=== PATIENT | female | born 1965 | race Caucasian/White ===

== ENCOUNTER 2016-11-06 16:31 | Emergency (ER) | payer OTHER ==
[2016-11-06] MEDS ORDERED: metroNIDAZOLE 500 MG TAB PO STA (18:42)
[2016-11-06] MEDS ORDERED: HYDROmorphone 1 MG/ML 1 ML SYRINGE IM STA (18:42)
[2016-11-06] MEDS ORDERED: CIPROFLOXACIN HCL 500 MG TAB PO STA (18:42)
--- NOTE | 2016-11-06 18:50 | ED ---
General Adult HPI - General Chief complaint: Abdominal Pain Stated complaint: Right Flank Pain Source: patient, RN notes reviewed, old records reviewed Mode of arrival: ambulatory - History of Present Illness Initial comments: Chief complaint history of present illness is a 51-year-old female seen recently and frequently in the emergency room for diverticulitis. The patient was in emergency room 4 days ago. Had similar complaints had a CAT scan was reported to be negative. Evidence of diverticulosis. The appendix was normal. At that time the patient had some white cells in the urine. Culture was pending. Patient denies nausea vomiting. Patient reports ALLERGIES to ibuprofen and strawberries. - Related Data Home Medications Medication Instructions Recorded Confirmed clonazePAM [KlonoPIN] 1 mg PO DAILY PRN 11/18/14 11/01/16 Citalopram Hydrobromide [CeleXA] 20 mg PO DAILY 11/01/16 11/01/16 traMADol HCL [Ultram] 50 mg PO DAILY PRN 11/01/16 11/01/16 Previous Rx's Medication Instructions Recorded traMADol HCl [Ultram] 50 mg PO Q4H PRN #15 tab 11/01/16 Ciprofloxacin HCl [Cipro] 500 mg PO Q12HR #14 tablet 11/06/16 metroNIDAZOLE [Flagyl] 500 mg PO QID #28 tab 11/06/16 Allergies Allergy/AdvReac Type Severity Reaction Status Date / Time strawberry Allergy Rash/Hives Verified 11/06/16 17:42 ibuprofen [From Motrin] AdvReac Vomiting Verified 11/06/16 17:42 Review of Systems ROS Statement: Those systems with pertinent positive or pertinent negative responses have been documented in the HPI. Review of systems no headache or visual acuity changes no stiff neck no chest pain or shortness of breath she does discomfort in the right side of the abdomen. No rashes noted. No apparent nausea vomiting. No change in bowel habits. No blood in the stool sometimes looks dark to her. No complaint of any neuro deficits. All systems were otherwise reviewed again. Past medical problems significant for previous GI bleed, diarrhea diverticulitis herniated disc. The patient's surgeries gallbladder hysterectomy. She also had a fractured ankle. The patient's other medical problems include anxiety bipolar depression. Smokes every day again told to stop smoking. History of family history of DVT and father had bladder cancer. Labs done 4 days ago all within normal limits and as noted the patient's CAT scan was done with IV contrast was reported by radiologist to be normal appendix and there is some diverticulosis. Patient reports that she often has diverticulitis. ROS Other: All systems not noted in ROS Statement are negative. Past Medical History Past Medical History: GI Bleed Additional Past Medical History / Comment(s): DIVERTICULITIS.HERNIA, herniated discs,sciatica, History of Any Multi-Drug Resistant Organisms: None Reported Past Surgical History: Cholecystectomy, Hysterectomy Additional Past Surgical History / Comment(s): right ankle fracture Past Anesthesia/Blood Transfusion Reactions: No Reported Reaction Past Psychological History: Anxiety, Bipolar, Depression, Panic Disorder Additional Psychological History / Comment(s): dyslexia Smoking Status: Current every day smoker Past Alcohol Use History: None Reported Additional Past Alcohol Use History / Comment(s): STARTED SMOKING AT AGE 27 1 PACK WILL LAST 1 WEEK- SMOKING CESSATION BOOKLET GIVEN TO PT. Past Drug Use History: None Reported - Past Family History Mother Family Medical History: Deep Vein Thrombosis (DVT) Father Family Medical History: Cancer, Hypertension Additional Family Medical History / Comment(s): dad has bladder ca General Exam - General Exam Comments Initial Comments: General: The patient is awake and alert, playing of on-again off-again recurrent right lower quadrant area pain. Vital signs temp 98.1 pulse 100 respiratory rate 20 pulse ox 96% room air blood pressure 102/63 Eye: Pupils are equal, round and reactive to light, extra-ocular movements are intact ; there is normal conjunctiva bilaterally. No signs of icterus. Ears, nose, mouth and throat: There are moist mucous membranes and no oral lesions. Neck: The neck is supple, there is no tenderness , no anterior cervical lymphadenopathy Cardiovascular: There is a regular rate and rhythm. No murmur, rub or gallop is appreciated. Respiratory: Lungs are clear to auscultation, respirations are non-labored, breath sounds are equal. No wheezes, stridor, rales, or rhonchi. Gastrointestinal: No rebound or referred pain, mild voluntary guarding right lower abdomen area. History of cholecystectomy. Minimal to no flank pain no rashes noted. Active bowel sounds. Back: Subjective discomfort to the right pelvic rim laterally. Musculoskeletal: Normal ROM, no tenderness, There is no pedal edema. There is no calf tenderness or swelling. Sensation intact. Neurological: No complaint of or any evidence of neuro deficits. Skin: Skin is warm and dry and no rashes or lesions are noted. Course Vital Signs 11/06/16 17:38 Temperature 98.1 F Pulse Rate 100 Respiratory 20 Rate Blood Pressure 102/63 O2 Sat by Pulse 96 Oximetry Medical Decision Making - Medical Decision Making Medical decision-making. The patient states she has had in the past. Diverticulitis does not clearly evident on exam or CAT scan which she has better with treatment. At this time the patient be treated for one week with Cipro and Flagyl. Advised to follow-up with family physician. Disposition Clinical Impression: H/O diverticulitis of colon Disposition: HOME SELF-CARE Condition: Fair Instructions: Diverticulitis Diet (ED), Diverticulitis (ED) Additional Instructions: Increase fluids. Bulky diet. No seeds etc. follow diverticulitis diet. Cipro Flagyl as directed. Use Tylenol for pain Prescriptions: Ciprofloxacin HCl [Cipro] 500 mg PO Q12HR #14 tablet metroNIDAZOLE [Flagyl] 500 mg PO QID #28 tab Time of Disposition: 18:54
[2016-11-06 18:56] VITALS: BP 118/79; PULSE 97; RESP 18; TEMP 97.9
== END 2016-11-06 19:10 | disposition home or self-care (01) ==
LOC: EC 16:31
DX: K57.32 Diverticulitis of large intestine without perforation or abscess without bleeding (principal); Z79.899 Other long term (current) drug therapy; Z91.018 Allergy to other foods; Z88.8 Allergy status to other drugs, medicaments and biological substances; F31.9 Bipolar disorder, unspecified; F41.9 Anxiety disorder, unspecified; F17.200 Nicotine dependence, unspecified, uncomplicated
CPT/HCPCS: 96372; 99284; J1170

== ENCOUNTER 2016-11-07 13:51 | Emergency (ER) | payer OTHER ==
[2016-11-07] MEDS ORDERED: ONDANSETRON 4 MG/2 ML VIAL IVP STA (14:35)
[2016-11-07] MEDS ORDERED: DICYCLOMINE 10 MG/ML 2 ML AMP IM STA (14:35)
[2016-11-07] MEDS ORDERED: RX INFO: IV CONTRAST WAS GIVEN 1 EACH MISC MISCELLANE PRN (14:35)
[2016-11-07] MEDS ORDERED: SODIUM CHLORIDE 0.9% 1,000 ML IV STA (14:35)
[2016-11-07] MEDS ORDERED: FAMOTIDINE 20 MG/2 ML VIAL IV STA (14:36)
--- NOTE | 2016-11-07 14:38 | ED ---
General Adult HPI - General Chief complaint: Abdominal Pain Stated complaint: Rt Flank Pain Time Seen by Provider: 11/07/16 14:24 Source: patient, RN notes reviewed Mode of arrival: ambulatory Limitations: no limitations - History of Present Illness Initial comments: Patient is a pleasant 51-year-old female presenting to the emergency department complaining of abdominal discomfort. Patient states symptoms started 6 days ago. Upon further questioning patient admits to having some chronic abdominal discomfort for the past 6 months. Chart review reveals patient has been coming to the emergency center for the past 2 and half years for abdominal discomfort, multiple visits. Patient states known is able to figure out what is going on. Patient states she did recently see her primary care physician for this and has plans to see a specialist however has not yet seen a specialist. Patient does have some loose stools and nausea. No fevers. Discomfort is right lower abdomen. - Related Data Home Medications Medication Instructions Recorded Confirmed clonazePAM [KlonoPIN] 1 mg PO DAILY PRN 11/18/14 11/07/16 Citalopram Hydrobromide [CeleXA] 20 mg PO DAILY 11/01/16 11/07/16 Previous Rx's Medication Instructions Recorded traMADol HCl [Ultram] 50 mg PO Q4H PRN #15 tab 11/01/16 Ciprofloxacin HCl [Cipro] 500 mg PO Q12HR #14 tablet 11/06/16 metroNIDAZOLE [Flagyl] 500 mg PO QID #28 tab 11/06/16 Dicyclomine HCl [Bentyl] 20 mg PO QID PRN #15 tab 11/07/16 Allergies Allergy/AdvReac Type Severity Reaction Status Date / Time strawberry Allergy Rash/Hives Verified 11/07/16 15:15 ibuprofen [From Motrin] AdvReac Vomiting Verified 11/07/16 15:15 Review of Systems ROS Statement: Those systems with pertinent positive or pertinent negative responses have been documented in the HPI. ROS Other: All systems not noted in ROS Statement are negative. Constitutional: Denies: fever Eyes: Denies: eye pain ENT: Denies: ear pain Respiratory: Denies: dyspnea Cardiovascular: Denies: chest pain Endocrine: Denies: fatigue Gastrointestinal: Reports: abdominal pain, nausea, diarrhea Genitourinary: Denies: dysuria Musculoskeletal: Denies: back pain Skin: Denies: rash Neurological: Denies: weakness Past Medical History Past Medical History: GI Bleed Additional Past Medical History / Comment(s): DIVERTICULITIS.HERNIA, herniated discs,sciatica, History of Any Multi-Drug Resistant Organisms: None Reported Past Surgical History: Cholecystectomy, Hysterectomy Additional Past Surgical History / Comment(s): right ankle fracture Past Anesthesia/Blood Transfusion Reactions: No Reported Reaction Past Psychological History: Anxiety, Bipolar, Depression, Panic Disorder Additional Psychological History / Comment(s): dyslexia Smoking Status: Current every day smoker Past Alcohol Use History: None Reported Additional Past Alcohol Use History / Comment(s): STARTED SMOKING AT AGE 27 1 PACK WILL LAST 1 WEEK- SMOKING CESSATION BOOKLET GIVEN TO PT. Past Drug Use History: None Reported - Past Family History Mother Family Medical History: Deep Vein Thrombosis (DVT) Father Family Medical History: Cancer, Hypertension Additional Family Medical History / Comment(s): dad has bladder ca General Exam Limitations: no limitations General appearance: alert, in no apparent distress Head exam: Present: atraumatic Eye exam: Present: normal appearance ENT exam: Present: normal oropharynx Neck exam: Present: normal inspection Respiratory exam: Present: normal lung sounds bilaterally Cardiovascular Exam: Present: regular rate, normal rhythm Expanded Peripheral pulses: 2+: Dorsalis Pedis (R), Dorsalis Pedis (L) GI/Abdominal exam: Present: soft, tenderness (Moderate tenderness right mid abdomen), normal bowel sounds. Absent: distended, guarding, rebound, rigid, pulsatile mass Extremities exam: Present: normal inspection Neurological exam: Present: alert Psychiatric exam: Present: normal affect, normal mood Skin exam: Absent: rash Course Vital Signs 11/07/16 14:03 Temperature 98.3 F Pulse Rate 100 Respiratory 18 Rate Blood Pressure 132/59 O2 Sat by Pulse 100 Oximetry Medical Decision Making - Medical Decision Making Patient reexamined and resting comfortably in bed. Patient does request pain medication. Patient updated on results and need for follow-up. Patient also updated on need for follow-up with cutter machine in to have a scope done. Patient is also updated on my concerns regarding frequent visits for chronic abdominal pain and that narcotic pain medication is probably not the correct answer for her. - Lab Data Result diagrams: 11/07/16 14:50 11/07/16 14:50 Lab Results 11/07/16 11/07/16 11/07/16 Range/Units 14:50 14:50 14:50 WBC 6.2 (3.8-10.6) k/uL RBC 3.97 (3.80-5.40) m/uL Hgb 13.0 (11.4-16.0) gm/dL Hct 38.8 (34.0-46.0) % MCV 97.8 (80.0-100.0) fL MCH 32.9 (25.0-35.0) pg MCHC 33.6 (31.0-37.0) g/dL RDW 12.6 (11.5-15.5) % Plt Count 339 (150-450) k/uL Neutrophils % 63 % Lymphocytes % 26 % Monocytes % 8 % Eosinophils % 1 % Basophils % 1 % Neutrophils # 3.9 (1.3-7.7) k/uL Lymphocytes # 1.6 (1.0-4.8) k/uL Monocytes # 0.5 (0-1.0) k/uL Eosinophils # 0.0 (0-0.7) k/uL Basophils # 0.1 (0-0.2) k/uL PT 10.4 (9.0-12.0) sec INR 1.0 (<1.1) APTT 22.8 (22.0-30.0) sec Sodium 144 (137-145) mmol/L Potassium 4.4 (3.5-5.1) mmol/L Chloride 106 (98-107) mmol/L Carbon Dioxide 26 (22-30) mmol/L Anion Gap 12 mmol/L BUN 21 H (7-17) mg/dL Creatinine 0.91 (0.52-1.04) mg/dL Est GFR (MDRD) Af Amer >60 (>60 ml/min/1.73 sqM) Est GFR (MDRD) Non-Af >60 (>60 ml/min/1.73 sqM) Glucose 94 (74-99) mg/dL Calcium 9.4 (8.4-10.2) mg/dL Total Bilirubin 0.3 (0.2-1.3) mg/dL AST 22 (14-36) U/L ALT 33 (9-52) U/L Alkaline Phosphatase 66 (38-126) U/L Total Protein 7.2 (6.3-8.2) g/dL Albumin 4.2 (3.5-5.0) g/dL Amylase 67 (30-110) U/L Lipase 70 (23-300) U/L Urine Color Urine Appearance (Clear) Urine pH (5.0-8.0) Ur Specific [place] (1.001-1.035) Urine Protein (Negative) Urine Glucose (UA) (Negative) Urine Ketones (Negative) Urine Blood (Negative) Urine Nitrate (Negative) Urine Bilirubin (Negative) Urine Urobilinogen (<2.0) mg/dL Ur Leukocyte Esterase (Negative) Urine WBC (0-5) /hpf Ur Squamous Epith Cells (0-4) /hpf Amorphous Sediment (None) /hpf 11/07/16 Range/Units 14:50 WBC (3.8-10.6) k/uL RBC (3.80-5.40) m/uL Hgb (11.4-16.0) gm/dL Hct (34.0-46.0) % MCV (80.0-100.0) fL MCH (25.0-35.0) pg MCHC (31.0-37.0) g/dL RDW (11.5-15.5) % Plt Count (150-450) k/uL Neutrophils % % Lymphocytes % % Monocytes % % Eosinophils % % Basophils % % Neutrophils # (1.3-7.7) k/uL Lymphocytes # (1.0-4.8) k/uL Monocytes # (0-1.0) k/uL Eosinophils # (0-0.7) k/uL Basophils # (0-0.2) k/uL PT (9.0-12.0) sec INR (<1.1) APTT (22.0-30.0) sec Sodium (137-145) mmol/L Potassium (3.5-5.1) mmol/L Chloride (98-107) mmol/L Carbon Dioxide (22-30) mmol/L Anion Gap mmol/L BUN (7-17) mg/dL Creatinine (0.52-1.04) mg/dL Est GFR (MDRD) Af Amer (>60 ml/min/1.73 sqM) Est GFR (MDRD) Non-Af (>60 ml/min/1.73 sqM) Glucose (74-99) mg/dL Calcium (8.4-10.2) mg/dL Total Bilirubin (0.2-1.3) mg/dL AST (14-36) U/L ALT (9-52) U/L Alkaline Phosphatase (38-126) U/L Total Protein (6.3-8.2) g/dL Albumin (3.5-5.0) g/dL Amylase (30-110) U/L Lipase (23-300) U/L Urine Color Yellow Urine Appearance Cloudy H (Clear) Urine pH 6.5 (5.0-8.0) Ur Specific [place] 1.013 (1.001-1.035) Urine Protein Negative (Negative) Urine Glucose (UA) Negative (Negative) Urine Ketones Negative (Negative) Urine Blood Negative (Negative) Urine Nitrate Negative (Negative) Urine Bilirubin Negative (Negative) Urine Urobilinogen <2.0 (<2.0) mg/dL Ur Leukocyte Esterase Small H (Negative) Urine WBC 10 H (0-5) /hpf Ur Squamous Epith Cells 20 H (0-4) /hpf Amorphous Sediment Occasional H (None) /hpf - Radiology Data Radiology results: report reviewed (Computed tomography scan of the abdomen pelvis shows diverticulosis without diverticulitis. There is also some mild thickening of the esophagus.) Disposition Clinical Impression: Chronic abdominal pain Disposition: HOME SELF-CARE Condition: Stable Instructions: Abdominal Pain (ED), Chronic Pain (ED) Additional Instructions: Please follow-up with your primary care physician and brand lead this week. Consider having EGD and colonoscopy done. Return for change in symptoms , fevers, not tolerating fluids, worsening symptoms or other concerns Prescriptions: Dicyclomine HCl [Bentyl] 20 mg PO QID PRN #15 tab PRN Reason: Pain Referrals: Mario Mcdaniels DO [Primary Care Provider] - 1-2 days Ai Salamanca MD [STAFF PHYSICIAN] - 1-2 days
[2016-11-07 15:00] LABS: Basophils # (A) 0.1 k/uL (0-0.2); Basophils % (A) 1 %; CH 34.4; CHCM 35.3; Eosinophils % (A) 1 %; HCT 38.8 % (34.0-46.0); HDW 2.38; Luc % (Auto) 2; Lymphocytes # (A) 1.6 k/uL (1.0-4.8); Lymphocytes % (A) 26 %; MCH 32.9 pg (25.0-35.0); MCHC 33.6 g/dL (31.0-37.0); MCV 97.8 fL (80.0-100.0); Mean Platelet Volume 7.1; Monocytes # (A) 0.5 k/uL (0-1.0); Monocytes % (A) 8 %; Neutrophils # (A) 3.9 k/uL (1.3-7.7); Neutrophils % (A) 63 %; RBC 3.97 m/uL (3.80-5.40); RDW 12.6 % (11.5-15.5); WBC 6.2 k/uL (3.8-10.6); WBC (Perox) 6.32
[2016-11-07 15:13] LABS: Partial Thromboplastin Time 22.8 sec (22.0-30.0); Prothrombin Time 10.4 sec (9.0-12.0)
[2016-11-07 15:15] LABS: ALT 33 U/L (9-52); AST 22 U/L (14-36); Alkaline Phosphatase 66 U/L (38-126); Amylase 67 U/L (30-110); Anion Gap 12 mmol/L; Blood Urea Nitrogen 21 mg/dL (7-17); Calcium 9.4 mg/dL (8.4-10.2); Carbon Dioxide 26 mmol/L (22-30); Chloride 106 mmol/L (98-107); Glucose 94 mg/dL (74-99); Non-African American GFR(MDRD) >60 (>60 ml/min/1.73 sqM); Potassium 4.4 mmol/L (3.5-5.1); Sodium 144 mmol/L (137-145); Total Bilirubin 0.3 mg/dL (0.2-1.3); Total Protein 7.2 g/dL (6.3-8.2)
[2016-11-07 15:24] LABS: Amorphous Sediment,Urine Occasional /hpf; Appearance,Urine Cloudy (Clear); Bilirubin,Urine Negative (Negative); Glucose,Urine (UA) Negative (Negative); Ketones,Urine Negative (Negative); Leukocyte Esterase,Urine Small (Negative); Nitrite,Urine Negative (Negative); PH, Urine 6.5 (5.0-8.0); Particle Count 7302; Protein,Urine Negative (Negative); Specific Gravity,Urine 1.013 (1.001-1.035); Squamous Epithelial Cell,Urine 20 /hpf (0-4); UA Billing (MACRO vs. MICRO) MICRO; Urobilinogen,Urine <2.0 mg/dL (<2.0); WBC,Urine 10 /hpf (0-5)
--- NOTE | 2016-11-07 16:20 | CT ---
EXAMINATION TYPE: CT abdomen pelvis w con DATE OF EXAM: 11/07/2016 4:02 PM COMPARISON: 11/01/2016 HISTORY: 51-year-old female with abdominal pain, complains of right flank pain. TECHNIQUE: Contiguous axial scanning of the abdomen and pelvis following administration of 100 ml Omn ipaque 300 IV contrast. Delayed images through the kidneys and coronal/sagittal reconstructions perf ormed. CT DLP: 437.1 mGycm Automated exposure control for dose reduction was used. FINDINGS: Heart is normal size without pericardial effusion. Lung bases are clear without pleural effusion. Similar minimal circumferential wall thickening of the lower esophagus; correlate to exclude any symp toms of esophagitis. Small amount of focal fat along the anterior falciform ligament. Scattered nonspecific subcentimeter hypodensities within the liver are too small for accurate CT martir acterization and probably represent cysts. Portal venous system is patent. No biliary ductal dilatati on. Cholecystectomy clips are present. Dropped clip along the anterior margin of the inferior liver. Adrenal glands, kidneys, spleen, and pancreas within normal limits. No dilated small bowel, free fluid, or free air. There is a normal appendix. Mild overall stool burden and mild colonic diverticulosis though more moderate in the left hemicolon. No pericolonic inflammatory change seen. Bladder is partially urine distended. Uterus surgically absent. Neither ovary is visualized. No abnor mal fluid collection in the pelvis or pelvic lymphadenopathy. Bones: Some facet degenerative change in the lower lumbar spine. No osseous destructive process. IMPRESSION: 1. COLONIC DIVERTICULOSIS, MODERATE WITHIN THE LEFT HEMICOLON. NO EVIDENCE FOR ACUTE DIVERTICULITIS. 2. VERY MILD CIRCUMFERENTIAL WALL THICKENING OF THE LOWER ESOPHAGUS; CORRELATE TO EXCLUDE ANY SYMPTOM S OF ESOPHAGITIS. 3. OTHERWISE, NO ACUTE INFLAMMATORY PROCESS IDENTIFIED.
[2016-11-07 17:02] VITALS: BP 105/81; PULSE 80; RESP 16; TEMP 98.2
== END 2016-11-07 17:10 | disposition home or self-care (01) ==
LOC: EC 13:51
DX: G89.29 Other chronic pain (principal); R10.9 Unspecified abdominal pain; K57.90 Diverticulosis of intestine, part unspecified, without perforation or abscess without bleeding; Z87.19 Personal history of other diseases of the digestive system; F31.9 Bipolar disorder, unspecified; F41.9 Anxiety disorder, unspecified; F41.0 Panic disorder [episodic paroxysmal anxiety]; F17.200 Nicotine dependence, unspecified, uncomplicated; Z79.899 Other long term (current) drug therapy
CPT/HCPCS: 99284; 96374; 96375; 96372; 36415; 80053; 82150; 83690; 85025; 85610; 85730; 81001; 87086; 74177; J0500; J2405; Q9967

== ENCOUNTER 2017-01-05 17:31 | Emergency (ER) | payer OTHER ==
[2017-01-05] MEDS ORDERED: SODIUM CHLORIDE 0.9% 1,000 ML IV STA (18:12)
[2017-01-05] MEDS ORDERED: LORazepam 2 MG/ML SYRINGE IV STA (18:12)
[2017-01-05] MEDS ORDERED: ACETAMINOPHEN IV (For NPO) 1,000 MG in EMPTY BAG 1 BAG IVPB ONE (18:12)
[2017-01-05] MEDS ORDERED: ONDANSETRON 4 MG/2 ML VIAL IVP STA (18:12)
--- NOTE | 2017-01-05 18:23 | ED ---
Abdominal Pain HPI - General Chief Complaint: Abdominal Pain Stated Complaint: side pain Time Seen by Provider: 01/05/17 18:07 Source: patient, RN notes reviewed Mode of arrival: ambulatory Limitations: no limitations - History of Present Illness Initial Comments: 51 yo female presents to the ER with cc of right sided abdominal pain. Patient states that this pain started over the last 3 or 4 days. Patient states that she has had nausea vomiting and diarrhea with it. Patient states she has had a low-grade fever as well. Patient denies any fever or chills with this. Patient states that she was concerned due to the continued symptoms that she thought that she should be evaluated. Patient denies any recent fever, chills, shortness of breath, chest pain, back pain, numbness or tingling, dysuria or hematuria, constipation, headaches or visual changes, or any other current symptoms. - Related Data Home Medications Medication Instructions Recorded Confirmed clonazePAM [KlonoPIN] 1 mg PO DAILY PRN 11/18/14 01/05/17 Butalb/APAP/Caff 50-325-40Mg 1 tab PO Q8H PRN 01/05/17 01/05/17 [Fioricet 50-325-40] Nystatin 100,000 Unit/gm Oint 1 applic TOPICAL BID 01/05/17 01/05/17 [Mycostatin Oint] Phenazopyridine [Pyridium] 200 mg PO TID 01/05/17 01/05/17 Sulfamethox-Tmp 800-160Mg [Bactrim 1 tab PO Q12HR 01/05/17 01/05/17 DS 800-160 mg] traMADol HCl [Ultram] 50 - 100 mg PO Q6H PRN 01/05/17 01/05/17 Previous Rx's Medication Instructions Recorded Ciprofloxacin HCl [Cipro] 500 mg PO Q12HR #14 tablet 01/05/17 Allergies Allergy/AdvReac Type Severity Reaction Status Date / Time strawberry Allergy Rash/Hives Verified 01/05/17 18:12 ibuprofen [From Motrin] AdvReac Vomiting Verified 01/05/17 18:12 Review of Systems ROS Statement: Those systems with pertinent positive or pertinent negative responses have been documented in the HPI. ROS Other: All systems not noted in ROS Statement are negative. Past Medical History Past Medical History: GI Bleed Additional Past Medical History / Comment(s): DIVERTICULITIS.HERNIA, herniated discs,sciatica, History of Any Multi-Drug Resistant Organisms: None Reported Past Surgical History: Cholecystectomy, Hysterectomy Additional Past Surgical History / Comment(s): right ankle fracture Past Anesthesia/Blood Transfusion Reactions: No Reported Reaction Past Psychological History: Anxiety, Bipolar, Depression, Panic Disorder Additional Psychological History / Comment(s): dyslexia Smoking Status: Current every day smoker Past Alcohol Use History: None Reported Additional Past Alcohol Use History / Comment(s): STARTED SMOKING AT AGE 27 1 PACK WILL LAST 1 WEEK- SMOKING CESSATION BOOKLET GIVEN TO PT. Past Drug Use History: None Reported - Past Family History Mother Family Medical History: Deep Vein Thrombosis (DVT) Father Family Medical History: Cancer, Hypertension Additional Family Medical History / Comment(s): dad has bladder ca General Exam - General Exam Comments Initial Comments: General: The patient is awake and alert, in no distress, and does not appear acutely ill. Eye: Pupils are equal, round and reactive to light, extra-ocular movements are intact; there is normal conjunctiva bilaterally. No signs of icterus. Ears, nose, mouth and throat: There are moist mucous membranes and no oral lesions. Neck: The neck is supple, there is no tenderness. Cardiovascular: There is a regular rate and rhythm. No murmur, rub or gallop is appreciated. Respiratory: Lungs are clear to auscultation, respirations are non-labored, breath sounds are equal. No wheezes, stridor, rales, or rhonchi. Gastrointestinal: Soft, non-distended, mild tenderness in the right lower quadrant of the abdomen without masses or organomegaly noted. There is no rebound or guarding present. right sided CVA tenderness. Bowel sounds are unremarkable. Back: There is no tenderness to palpation in the midline. There is no obvious deformity. No rashes noted. Musculoskeletal: Normal ROM, no tenderness, There is no pedal edema. There is no calf tenderness or swelling. Sensation intact. Pulses equal bilaterally 2+. Neurological: CN II-XII intact, There are no obvious motor or sensory deficits. Coordination appears grossly intact. Speech is normal. Skin: Skin is warm and dry and no rashes or lesions are noted. Psychiatric: Cooperative, appropriate mood & affect, normal judgment. Limitations: no limitations External exam: Present: normal external exam Speculum exam: Present: vaginal discharge (Yellow, thick) By manual exam: Present: normal by manual exam Course Vital Signs 01/05/17 01/05/17 01/05/17 17:46 18:56 19:58 Temperature 98.1 F 99.1 F Pulse Rate 120 H 110 H 88 Respiratory 20 18 16 Rate Blood Pressure 130/80 128/72 128/74 O2 Sat by Pulse 99 99 99 Oximetry Medical Decision Making - Medical Decision Making 51-year-old female presents to emergency room chief complaint right-sided abdominal pain. At this time the patient's CAT scan was reviewed and is appendicitis.Patient' surinalysisdoesshowsignofinfectionaswellassheispositiveforTrichomonas.STDprophyl axiswasgiveneducationwasgivenaswell.We 'llstartpatientinteractsorpossibleUTI.Wediddiscussreturnparametersandfollow- up.Patientstatedthatsheunderstoodallquestionshavebeenanswered.Shewillbedischarge d. - Lab Data Result diagrams: 01/05/17 18:13 01/05/17 18:13 Lab Results 01/05/17 01/05/17 01/05/17 Range/Units 18:13 18:13 18:13 WBC (3.8-10.6) k/uL RBC (3.80-5.40) m/uL Hgb (11.4-16.0) gm/dL Hct (34.0-46.0) % MCV (80.0-100.0) fL MCH (25.0-35.0) pg MCHC (31.0-37.0) g/dL RDW (11.5-15.5) % Plt Count (150-450) k/uL Neutrophils % % Lymphocytes % % Monocytes % % Eosinophils % % Basophils % % Neutrophils # (1.3-7.7) k/uL Lymphocytes # (1.0-4.8) k/uL Monocytes # (0-1.0) k/uL Eosinophils # (0-0.7) k/uL Basophils # (0-0.2) k/uL PT 10.6 (9.0-12.0) sec INR 1.0 (<1.1) APTT 22.7 (22.0-30.0) sec Sodium 143 (137-145) mmol/L Potassium 4.8 (3.5-5.1) mmol/L Chloride 103 (98-107) mmol/L Carbon Dioxide 27 (22-30) mmol/L Anion Gap 13 mmol/L BUN 19 H (7-17) mg/dL Creatinine 0.84 (0.52-1.04) mg/dL Est GFR (MDRD) Af Amer >60 (>60 ml/min/1.73 sqM) Est GFR (MDRD) Non-Af >60 (>60 ml/min/1.73 sqM) Glucose 89 (74-99) mg/dL Plasma Lactic Acid Mandeep 1.3 (0.7-2.0) mmol/L Calcium 10.3 H (8.4-10.2) mg/dL Total Bilirubin 0.7 (0.2-1.3) mg/dL AST 32 (14-36) U/L ALT 23 (9-52) U/L Alkaline Phosphatase 73 (38-126) U/L Total Protein 8.8 H (6.3-8.2) g/dL Albumin 4.9 (3.5-5.0) g/dL Amylase 95 (30-110) U/L Lipase 161 (23-300) U/L Urine Color Urine Appearance (Clear) Urine pH (5.0-8.0) Ur Specific Manning (1.001-1.035) Urine Protein (Negative) Urine Glucose (UA) (Negative) Urine Ketones (Negative) Urine Blood (Negative) Urine Nitrate (Negative) Urine Bilirubin (Negative) Urine Urobilinogen (<2.0) mg/dL Ur Leukocyte Esterase (Negative) Urine RBC (0-5) /hpf Urine WBC (0-5) /hpf Urine WBC Clumps (None) /hpf Ur Squamous Epith Cells (0-4) /hpf Urine Bacteria (None) /hpf Urine Mucus (None) /hpf Trichomonas Ag (Rapid) (Negative) 01/05/17 01/05/17 01/05/17 Range/Units 18:13 18:13 19:47 WBC 11.5 H (3.8-10.6) k/uL RBC 4.21 (3.80-5.40) m/uL Hgb 14.0 (11.4-16.0) gm/dL Hct 41.1 (34.0-46.0) % MCV 97.5 (80.0-100.0) fL MCH 33.1 (25.0-35.0) pg MCHC 34.0 (31.0-37.0) g/dL RDW 12.7 (11.5-15.5) % Plt Count 480 H (150-450) k/uL Neutrophils % 69 % Lymphocytes % 22 % Monocytes % 6 % Eosinophils % 0 % Basophils % 0 % Neutrophils # 8.0 H (1.3-7.7) k/uL Lymphocytes # 2.6 (1.0-4.8) k/uL Monocytes # 0.7 (0-1.0) k/uL Eosinophils # 0.0 (0-0.7) k/uL Basophils # 0.0 (0-0.2) k/uL PT (9.0-12.0) sec INR (<1.1) APTT (22.0-30.0) sec Sodium (137-145) mmol/L Potassium (3.5-5.1) mmol/L Chloride (98-107) mmol/L Carbon Dioxide (22-30) mmol/L Anion Gap mmol/L BUN (7-17) mg/dL Creatinine (0.52-1.04) mg/dL Est GFR (MDRD) Af Amer (>60 ml/min/1.73 sqM) Est GFR (MDRD) Non-Af (>60 ml/min/1.73 sqM) Glucose (74-99) mg/dL Plasma Lactic Acid Mandeep (0.7-2.0) mmol/L Calcium (8.4-10.2) mg/dL Total Bilirubin (0.2-1.3) mg/dL AST (14-36) U/L ALT (9-52) U/L Alkaline Phosphatase (38-126) U/L Total Protein (6.3-8.2) g/dL Albumin (3.5-5.0) g/dL Amylase (30-110) U/L Lipase (23-300) U/L Urine Color Light Yellow Urine Appearance Cloudy H (Clear) Urine pH 6.0 (5.0-8.0) Ur Specific Manning 1.005 (1.001-1.035) Urine Protein Trace H (Negative) Urine Glucose (UA) Negative (Negative) Urine Ketones Negative (Negative) Urine Blood Small H (Negative) Urine Nitrate Negative (Negative) Urine Bilirubin Negative (Negative) Urine Urobilinogen <2.0 (<2.0) mg/dL Ur Leukocyte Esterase Large H (Negative) Urine RBC 11 H (0-5) /hpf Urine WBC >182 H (0-5) /hpf Urine WBC Clumps Many H (None) /hpf Ur Squamous Epith Cells 2 (0-4) /hpf Urine Bacteria Occasional H (None) /hpf Urine Mucus Many H (None) /hpf Trichomonas Ag (Rapid) Positive H (Negative) Disposition Clinical Impression: UTI (urinary tract infection), infection, trichomonal Disposition: HOME SELF-CARE Condition: Stable Instructions: Urinary Tract Infection in Women (ED) Additional Instructions: Please use medication as discussed. Please follow up with family doctor if symptoms have not improved over the next two days. Please return to the emergency room if your symptoms increase or worsen or for any other concerns. Prescriptions: Ciprofloxacin HCl [Cipro] 500 mg PO Q12HR #14 tablet Referrals: Mario Mcdaniels DO [Primary Care Provider] - 1-2 days Time of Disposition: 20:59
[2017-01-05 18:32] LABS: Basophils % (A) 0 %; CH 34.1; CHCM 35.1; Eosinophils % (A) 0 %; HCT 41.1 % (34.0-46.0); HDW 2.54; Luc # (Auto) 0.23; Luc % (Auto) 2; Lymphocytes # (A) 2.6 k/uL (1.0-4.8); Lymphocytes % (A) 22 %; MCH 33.1 pg (25.0-35.0); MCV 97.5 fL (80.0-100.0); Mean Platelet Volume 6.5; Monocytes # (A) 0.7 k/uL (0-1.0); Monocytes % (A) 6 %; Neutrophils % (A) 69 %; RBC 4.21 m/uL (3.80-5.40); RDW 12.7 % (11.5-15.5); WBC 11.5 k/uL (3.8-10.6); WBC (Perox) 11.53
[2017-01-05 18:36] LABS: Appearance,Urine Cloudy (Clear); Bacteria,Urine Occasional /hpf; Bilirubin,Urine Negative (Negative); Glucose,Urine (UA) Negative (Negative); Ketones,Urine Negative (Negative); Leukocyte Esterase,Urine Large (Negative); Mucus,Urine Many /hpf; Nitrite,Urine Negative (Negative); Particle Count 10239; Protein,Urine Trace (Negative); RBC,Urine 11 /hpf (0-5); Specific Gravity,Urine 1.005 (1.001-1.035); Squamous Epithelial Cell,Urine 2 /hpf (0-4); UA Billing (MACRO vs. MICRO) MICRO; Urobilinogen,Urine <2.0 mg/dL (<2.0); WBC,Urine >182 /hpf (0-5)
[2017-01-05 18:38] LABS: ALT 23 U/L (9-52); AST 32 U/L (14-36); Alkaline Phosphatase 73 U/L (38-126); Amylase 95 U/L (30-110); Anion Gap 13 mmol/L; Blood Urea Nitrogen 19 mg/dL (7-17); Calcium 10.3 mg/dL (8.4-10.2); Carbon Dioxide 27 mmol/L (22-30); Chloride 103 mmol/L (98-107); Glucose 89 mg/dL (74-99); Non-African American GFR(MDRD) >60 (>60 ml/min/1.73 sqM); Potassium 4.8 mmol/L (3.5-5.1); Sodium 143 mmol/L (137-145); Total Bilirubin 0.7 mg/dL (0.2-1.3); Total Protein 8.8 g/dL (6.3-8.2)
[2017-01-05] MEDS ORDERED: KETOROLAC 30 MG/ML 1 ML VIAL IVP STA (18:39)
[2017-01-05 18:44] LABS: Partial Thromboplastin Time 22.7 sec (22.0-30.0); Prothrombin Time 10.6 sec (9.0-12.0)
[2017-01-05] MEDS ORDERED: RX INFO: IV CONTRAST WAS GIVEN 1 EACH MISC MISCELLANE PRN (19:45)
[2017-01-05 19:59] VITALS: PULSE 88; RESP 16
--- NOTE | 2017-01-05 20:50 | CT ---
EXAMINATION TYPE: CT abdomen pelvis w con DATE OF EXAM: 01/05/2017 8:43 PM COMPARISON: November 07, 2016 HISTORY: PT STATES OF VOMITING, DIARRHEA AND FEVER CT DLP: 423.9 mGycm CONTRAST: CT scan of the abdomen and pelvis is performed without Oral Contrast and with IV Contrast, patient in jected with 100 mL of Omnipaque 300. FINDINGS: LUNG BASES-: No visible nodule. No infiltrate. LIVER/GB: Cholecystectomy clips are in place. No space occupying hepatic lesion. Biliary tree is o f normal caliber. PANCREAS: No inflammation. No distinct mass. SPLEEN: No splenic enlargement. No lesion seen. ADRENALS: No nodule. No thickening. KIDNEYS/BLADDER: No hydronephrosis. No nephrolithiasis. No disctinct renal mass. Urinary bladder g rossly unremarkable. BOWEL: Normal appendix. Normal bowel caliber. No inflammation. Colonic diverticulosis without diver ticulitis. GENITAL ORGANS: Hysterectomy changes noted. No adnexal masses. LYMPH NODES: No greater than 1cm abdominal or pelvic lymph nodes are appreciated. AORTA: No significant abnormality. OSSEOUS STRUCTURES: No significant abnormality is seen. OTHER: No significant additional abnormality is seen. IMPRESSION: 1. No acute intra-abdominal or intrapelvic process.
[2017-01-05] MEDS ORDERED: AZITHROMYCIN 500 MG TAB PO STA (20:52)
[2017-01-05] MEDS ORDERED: metroNIDAZOLE 500 MG TAB PO STA (20:52)
[2017-01-05] MEDS ORDERED: PHENAZOPYRIDINE 100 MG TAB PO STA (20:57)
[2017-01-05] MEDS ORDERED: MORPHINE SULFATE 4 MG/ML SYRINGE IV STA (20:57)
[2017-01-05] MEDS ORDERED: HYDROcodone/APAP 5-325MG 1 EACH TAB PO STA (20:59)
[2017-01-05 21:09] VITALS: BP 129/70; TEMP 98
[2017-01-09 10:11] LABS: Chlamydia/GC Source Vaginal
== END 2017-01-05 21:08 | disposition home or self-care (01) ==
LOC: EC 17:31
DX: N39.0 Urinary tract infection, site not specified (principal); A59.00 Urogenital trichomoniasis, unspecified; R11.2 Nausea with vomiting, unspecified; R19.7 Diarrhea, unspecified; F17.200 Nicotine dependence, unspecified, uncomplicated; Z79.899 Other long term (current) drug therapy; Z88.6 Allergy status to analgesic agent; Z91.018 Allergy to other foods
CPT/HCPCS: 36415; 80053; 87591; 87491; 82150; 83605; 83690; 85025; 85610; 85730; 81001; 87040; 87808; 87070; 87086; 74177; 99284; 96365; 96368; 96375 ×3; J2060; J2405; J0696; J1885; Q9967; J0131; 87205

== ENCOUNTER 2017-01-06 13:44 | Emergency (ER) | payer OTHER ==
[2017-01-06] MEDS ORDERED: ASPIRIN 81 MG CHEW PO STA (14:26)
[2017-01-06] MEDS ORDERED: NITROGLYCERIN SL TABS 0.4 MG TAB SUBLINGUAL STA (14:26)
[2017-01-06 14:52] LABS: Basophils # (A) 0.1 k/uL (0-0.2); Basophils % (A) 1 %; CH 33.8; CHCM 35.3; Eosinophils # (A) 0.1 k/uL (0-0.7); Eosinophils % (A) 1 %; HCT 35.7 % (34.0-46.0); HDW 2.55; HGB 12.4 gm/dL (11.4-16.0); Luc # (Auto) 0.18; Luc % (Auto) 2; Lymphocytes # (A) 2.1 k/uL (1.0-4.8); Lymphocytes % (A) 27 %; MCH 33.4 pg (25.0-35.0); MCHC 34.8 g/dL (31.0-37.0); Mean Platelet Volume 7.2; Monocytes # (A) 0.5 k/uL (0-1.0); Monocytes % (A) 6 %; Neutrophils # (A) 5.1 k/uL (1.3-7.7); Neutrophils % (A) 64 %; RBC 3.72 m/uL (3.80-5.40); RDW 12.7 % (11.5-15.5); WBC (Perox) 7.99
--- NOTE | 2017-01-06 14:53 | ED ---
General Adult HPI - General Chief complaint: Chest Pain Stated complaint: anxiety,FERNANDA Time Seen by Provider: 01/06/17 14:22 Source: patient, RN notes reviewed, old records reviewed Mode of arrival: EMS Limitations: no limitations - History of Present Illness Initial comments: Patient 51-year-old female who presents emergency room today with a chief complaint of increased shortness breath and chest pain. Patient does admit that symptoms started late last night. Patient does admit that she was here in the emergency room for abdominal pain yesterday. States the symptoms started after she was discharged. Patient does admit that hurts when she takes deep breath and does admit to some chest pain. States never had similar symptoms in the past. Denies any other complaints associated symptoms. Patient denies any recent fever, chills, back pain, numbness or tingling, dysuria or hematuria, constipation or diarrhea, headaches or visual changes, or any other complaints. - Related Data Home Medications Medication Instructions Recorded Confirmed clonazePAM [KlonoPIN] 1 mg PO DAILY PRN 11/18/14 01/06/17 Previous Rx's Medication Instructions Recorded Ciprofloxacin HCl [Cipro] 500 mg PO Q12HR #14 tablet 01/05/17 guaiFENesin 400 mg PO Q4-6H #20 tablet 01/06/17 Allergies Allergy/AdvReac Type Severity Reaction Status Date / Time ibuprofen [From Motrin] Allergy Rash/Hives Verified 01/06/17 14:07 strawberry Allergy Rash/Hives Verified 01/06/17 14:07 Review of Systems ROS Statement: Those systems with pertinent positive or pertinent negative responses have been documented in the HPI. ROS Other: All systems not noted in ROS Statement are negative. Past Medical History Past Medical History: GI Bleed Additional Past Medical History / Comment(s): DIVERTICULITIS.HERNIA, herniated discs,sciatica, History of Any Multi-Drug Resistant Organisms: None Reported Past Surgical History: Cholecystectomy, Hysterectomy Additional Past Surgical History / Comment(s): right ankle fracture Past Anesthesia/Blood Transfusion Reactions: No Reported Reaction Past Psychological History: Anxiety, Bipolar, Depression, Panic Disorder Additional Psychological History / Comment(s): dyslexia Smoking Status: Current every day smoker Past Alcohol Use History: None Reported Additional Past Alcohol Use History / Comment(s): STARTED SMOKING AT AGE 27 1 PACK WILL LAST 1 WEEK- SMOKING CESSATION BOOKLET GIVEN TO PT. Past Drug Use History: None Reported - Past Family History Mother Family Medical History: Deep Vein Thrombosis (DVT) Father Family Medical History: Cancer, Hypertension Additional Family Medical History / Comment(s): dad has bladder ca General Exam - General Exam Comments Initial Comments: General: The patient is awake and alert, in no distress, and does not appear acutely ill. Eye: Pupils are equal, round and reactive to light, extra-ocular movements are intact. No nystagmus. There is normal conjunctiva bilaterally. No signs of icterus. Ears, nose, mouth and throat: There are moist mucous membranes and no oral lesions. Neck: The neck is supple, there is no tenderness or JVD. Cardiovascular: There is a regular rate and rhythm. No murmur, rub or gallop is appreciated. Respiratory: Lungs are clear to auscultation, respirations are non-labored, breath sounds are equal. No wheezes, stridor, rales, or rhonchi. Gastrointestinal: Soft, non-distended, non-tender abdomen without masses or organomegaly noted. There is no rebound or guarding present. No CVA tenderness. Bowel sounds are unremarkable. Musculoskeletal: Normal ROM, no tenderness. Strength 5/5. Sensation intact. Pulses equal bilaterally 2+. Neurological: A&O x 3. CN II-XII intact, There are no obvious motor or sensory deficits. Coordination appears grossly intact. Speech is normal. Skin: Skin is warm and dry and no rashes or lesions are noted. Psychiatric: Cooperative, appropriate mood & affect, normal judgment. Limitations: no limitations Course Vital Signs 01/06/17 13:46 Temperature 97.8 F Pulse Rate 105 H Respiratory 26 H Rate Blood Pressure 132/71 O2 Sat by Pulse 100 Oximetry Medical Decision Making - Medical Decision Making Patient is reexamined at this time shows no signs of distress. Case was discussed with attending physician Dr. Piña. EKG shows normal sinus rhythm. Cardiac enzymes negative. Does admit that his symptoms started late last night early this morning. Has been greater than 6 hours. Patient's x-ray negative. D-dimer negative. Results were discussed with the patient. Patient complaining stating she needs something for chest pain. States she needs something for lungs. Admits that she's had cough congestion over the last 3 weeks. Continues to state that nobody is listening to her. She was seen here in the emergency room last night for complaints of abdominal pain diagnosed with Trichomonas and urinary tract infection. Patient was advised of options of CT of her chest. She states that she does not have time for that. States she would like to have some pain medicine to hold her over until she is able follow-up the family doctor. Discussed with patient that we could not prescribe any narcotics for her. Discussed with patient about giving her cough suppressant to help with cough and congestion. Patient is in agreement with this plan. Has declined any further workup and states she would like to be discharged home. - Lab Data Result diagrams: 01/06/17 14:40 01/06/17 14:40 Lab Results 01/06/17 01/06/17 01/06/17 Range/Units 14:40 14:40 14:40 WBC 8.0 (3.8-10.6) k/uL RBC 3.72 L (3.80-5.40) m/uL Hgb 12.4 (11.4-16.0) gm/dL Hct 35.7 (34.0-46.0) % MCV 96.0 (80.0-100.0) fL MCH 33.4 (25.0-35.0) pg MCHC 34.8 (31.0-37.0) g/dL RDW 12.7 (11.5-15.5) % Plt Count 418 (150-450) k/uL Neutrophils % 64 % Lymphocytes % 27 % Monocytes % 6 % Eosinophils % 1 % Basophils % 1 % Neutrophils # 5.1 (1.3-7.7) k/uL Lymphocytes # 2.1 (1.0-4.8) k/uL Monocytes # 0.5 (0-1.0) k/uL Eosinophils # 0.1 (0-0.7) k/uL Basophils # 0.1 (0-0.2) k/uL PT (9.0-12.0) sec INR (<1.1) APTT (22.0-30.0) sec D-Dimer (<0.60) mg/L FEU Sodium 144 (137-145) mmol/L Potassium 3.9 (3.5-5.1) mmol/L Chloride 108 H (98-107) mmol/L Carbon Dioxide 25 (22-30) mmol/L Anion Gap 11 mmol/L BUN 17 (7-17) mg/dL Creatinine 0.98 (0.52-1.04) mg/dL Est GFR (MDRD) Af Amer >60 (>60 ml/min/1.73 sqM) Est GFR (MDRD) Non-Af 59 (>60 ml/min/1.73 sqM) Glucose 78 (74-99) mg/dL Calcium 9.4 (8.4-10.2) mg/dL Magnesium 2.3 (1.6-2.3) mg/dL Total Bilirubin 0.3 (0.2-1.3) mg/dL AST 16 (14-36) U/L ALT 26 (9-52) U/L Alkaline Phosphatase 76 (38-126) U/L Total Creatine Kinase 87 (30-135) U/L CK-MB (CK-2) 0.5 (0.0-2.4) ng/mL CK-MB (CK-2) Rel Index 0.6 Troponin I <0.012 (0.000-0.034) ng/mL Total Protein 7.1 (6.3-8.2) g/dL Albumin 4.0 (3.5-5.0) g/dL 01/06/17 Range/Units 14:40 WBC (3.8-10.6) k/uL RBC (3.80-5.40) m/uL Hgb (11.4-16.0) gm/dL Hct (34.0-46.0) % MCV (80.0-100.0) fL MCH (25.0-35.0) pg MCHC (31.0-37.0) g/dL RDW (11.5-15.5) % Plt Count (150-450) k/uL Neutrophils % % Lymphocytes % % Monocytes % % Eosinophils % % Basophils % % Neutrophils # (1.3-7.7) k/uL Lymphocytes # (1.0-4.8) k/uL Monocytes # (0-1.0) k/uL Eosinophils # (0-0.7) k/uL Basophils # (0-0.2) k/uL PT 11.1 (9.0-12.0) sec INR 1.1 (<1.1) APTT 23.7 (22.0-30.0) sec D-Dimer 0.49 (<0.60) mg/L FEU Sodium (137-145) mmol/L Potassium (3.5-5.1) mmol/L Chloride (98-107) mmol/L Carbon Dioxide (22-30) mmol/L Anion Gap mmol/L BUN (7-17) mg/dL Creatinine (0.52-1.04) mg/dL Est GFR (MDRD) Af Amer (>60 ml/min/1.73 sqM) Est GFR (MDRD) Non-Af (>60 ml/min/1.73 sqM) Glucose (74-99) mg/dL Calcium (8.4-10.2) mg/dL Magnesium (1.6-2.3) mg/dL Total Bilirubin (0.2-1.3) mg/dL AST (14-36) U/L ALT (9-52) U/L Alkaline Phosphatase (38-126) U/L Total Creatine Kinase (30-135) U/L CK-MB (CK-2) (0.0-2.4) ng/mL CK-MB (CK-2) Rel Index Troponin I (0.000-0.034) ng/mL Total Protein (6.3-8.2) g/dL Albumin (3.5-5.0) g/dL Disposition Clinical Impression: Cough Disposition: HOME SELF-CARE Condition: Good Instructions: Chronic Cough (ED) Additional Instructions: Please use medication as discussed. Please follow-up with family doctor in the next 2 days of symptoms have not improved. Please return to emergency room if the symptoms increase or worsen or for any other concerns. Prescriptions: guaiFENesin 400 mg PO Q4-6H #20 tablet Time of Disposition: 15:44
[2017-01-06 15:01] LABS: ALT 26 U/L (9-52); AST 16 U/L (14-36); Alkaline Phosphatase 76 U/L (38-126); Anion Gap 11 mmol/L; Blood Urea Nitrogen 17 mg/dL (7-17); Calcium 9.4 mg/dL (8.4-10.2); Carbon Dioxide 25 mmol/L (22-30); Chloride 108 mmol/L (98-107); Glucose 78 mg/dL (74-99); Magnesium 2.3 mg/dL (1.6-2.3); Non-African American GFR(MDRD) 59 (>60 ml/min/1.73 sqM); Potassium 3.9 mmol/L (3.5-5.1); Sodium 144 mmol/L (137-145); Total Bilirubin 0.3 mg/dL (0.2-1.3); Total Protein 7.1 g/dL (6.3-8.2)
--- NOTE | 2017-01-06 15:01 | XR ---
EXAMINATION TYPE: XR chest 2V DATE OF EXAM: 01/06/2017 2:56 PM COMPARISON: Prior chest x-ray third of February 2016 HISTORY: Chest pain and shortness of breath TECHNIQUE: Frontal and lateral views of the chest are obtained. FINDINGS: There is no focal air space opacity, pleural effusion, or pneumothorax seen. The cardiac silhouette size is within normal limits. There is a spinal curvature. The osseous structures are int act. IMPRESSION: No acute cardiopulmonary process.
[2017-01-06 15:06] LABS: INR 1.1 (<1.1); Partial Thromboplastin Time 23.7 sec (22.0-30.0); Prothrombin Time 11.1 sec (9.0-12.0)
[2017-01-06 15:12] LABS: Creatine Kinase 87 U/L (30-135)
[2017-01-06 15:25] LABS: Creatine Kinase MB 0.5 ng/mL (0.0-2.4); Troponin I <0.012 ng/mL (0.000-0.034)
[2017-01-06 15:53] VITALS: BP 124/78; PULSE 89; RESP 20; TEMP 97.9
== END 2017-01-06 15:53 | disposition home or self-care (01) ==
LOC: EC 13:44
DX: R05 Cough (principal); R09.89 Other specified symptoms and signs involving the circulatory and respiratory systems; R07.9 Chest pain, unspecified; F41.9 Anxiety disorder, unspecified; F17.200 Nicotine dependence, unspecified, uncomplicated; N39.0 Urinary tract infection, site not specified; A59.9 Trichomoniasis, unspecified; Z88.6 Allergy status to analgesic agent; Z79.899 Other long term (current) drug therapy
CPT/HCPCS: 36415; 71020; 80053; 82550; 82553; 83735; 84484; 85025; 85379; 85610; 85730; 93005; 99285

== ENCOUNTER 2017-01-10 15:47 | Emergency (ER) | payer OTHER ==
[2017-01-10] MEDS ORDERED: ONDANSETRON 4 MG/2 ML VIAL IVP STA (16:50)
[2017-01-10] MEDS ORDERED: SODIUM CHLORIDE 0.9% 500 ML IV STA (16:50)
[2017-01-10] MEDS ORDERED: ACETAMINOPHEN TAB 500 MG TAB PO STA (16:51)
--- NOTE | 2017-01-10 16:53 | ED ---
General Adult HPI - General Chief complaint: Abdominal Pain Stated complaint: abd pain Time Seen by Provider: 01/10/17 16:10 Source: patient, RN notes reviewed Mode of arrival: ambulatory Limitations: no limitations - History of Present Illness Initial comments: Is a 51-year-old female who presents to the emergency department complaining of right upper quadrant abdominal pain. Patient states it started yesterday and she has been vomiting occasionally since then. Patient denies any diarrhea. Patient states she's already had a cholecystectomy. States she's had this pain many times and no one can figure out what it is. Patient denies any recent fever chills or cough. Patient denies any chest pain or palpitations. Patient denies any shortness of breath or difficulty breathing per patient denies any back pain. Patient denies any dysuria hematuria urinary frequency. Patient denies headache. - Related Data Home Medications Medication Instructions Recorded Confirmed clonazePAM [KlonoPIN] 1 mg PO DAILY PRN 11/18/14 01/10/17 Butalb/APAP/Caff 50-325-40Mg 1 tab PO Q8H PRN 01/10/17 01/10/17 [Fioricet 50-325-40] DULoxetine HCL [Cymbalta] 60 mg PO DAILY 01/10/17 01/10/17 traMADol HCL [Ultram] 100 mg PO Q6HR PRN 01/10/17 01/10/17 Allergies Allergy/AdvReac Type Severity Reaction Status Date / Time ibuprofen [From Motrin] Allergy Rash/Hives Verified 01/10/17 16:56 strawberry Allergy Rash/Hives Verified 01/10/17 16:56 Review of Systems ROS Statement: Those systems with pertinent positive or pertinent negative responses have been documented in the HPI. ROS Other: All systems not noted in ROS Statement are negative. Past Medical History Past Medical History: GI Bleed Additional Past Medical History / Comment(s): DIVERTICULITIS.HERNIA, herniated discs,sciatica, History of Any Multi-Drug Resistant Organisms: None Reported Past Surgical History: Cholecystectomy, Hysterectomy Additional Past Surgical History / Comment(s): right ankle fracture Past Anesthesia/Blood Transfusion Reactions: No Reported Reaction Past Psychological History: Anxiety, Bipolar, Depression, Panic Disorder Additional Psychological History / Comment(s): dyslexia Smoking Status: Current every day smoker Past Alcohol Use History: None Reported Additional Past Alcohol Use History / Comment(s): STARTED SMOKING AT AGE 27 1 PACK WILL LAST 1 WEEK- SMOKING CESSATION BOOKLET GIVEN TO PT. Past Drug Use History: None Reported - Past Family History Mother Family Medical History: Deep Vein Thrombosis (DVT) Father Family Medical History: Cancer, Hypertension Additional Family Medical History / Comment(s): dad has bladder ca General Exam - General Exam Comments Initial Comments: GENERAL: Patient is well-developed and well-nourished. Patient is nontoxic and well- hydrated and is in no acute distress. ENT: Neck is soft and supple. No significant lymphadenopathy is noted. Oropharynx is clear. Moist mucous membranes. Neck has full range of motion without eliciting any pain. EYES: The sclera were anicteric and conjunctiva were pink and moist. Extraocular movements were intact and pupils were equal round and reactive to light. Eyelids were unremarkable. PULMONARY: Unlabored respirations. Good breath sounds bilaterally. No audible rales rhonchi or wheezing was noted. CARDIOVASCULAR: There is a regular rate and rhythm without any murmurs gallops or rubs. ABDOMEN: Very minimal right upper quadrant pain. No palpable organomegaly was noted. There is no palpable pulsatile mass. SKIN: Skin is clear with no lesions or rashes and otherwise unremarkable. NEUROLOGIC: Patient is alert and oriented x3. Cranial nerves II through XII are grossly intact. Motor and sensory are also intact. Normal speech, volume and content. Symmetrical smile. MUSCULOSKELETAL: Normal extremities with adequate strength and full range of motion. No lower extremity swelling or edema. No calf tenderness. LYMPHATICS: No significant lymphadenopathy is noted PSYCHIATRIC: Normal psychiatric evaluation. Normal interpersonal interactions appears functionally intact in deals appropriately with others. No signs of depression. No signs of anxiety. No delusions. No hallucinations. Limitations: no limitations Course Vital Signs 01/10/17 16:06 Temperature 100.0 F H Pulse Rate 118 H Respiratory 20 Rate Blood Pressure 140/73 O2 Sat by Pulse 99 Oximetry Medical Decision Making - Medical Decision Making KUB shows no acute abnormality - Lab Data Result diagrams: 01/10/17 17:05 01/10/17 17:05 Lab Results 01/10/17 01/10/17 01/10/17 Range/Units 17:05 17:05 17:05 WBC 7.4 (3.8-10.6) k/uL RBC 3.97 (3.80-5.40) m/uL Hgb 13.3 (11.4-16.0) gm/dL Hct 38.2 (34.0-46.0) % MCV 96.2 (80.0-100.0) fL MCH 33.6 (25.0-35.0) pg MCHC 34.9 (31.0-37.0) g/dL RDW 12.6 (11.5-15.5) % Plt Count 440 (150-450) k/uL Neutrophils % 70 % Lymphocytes % 21 % Monocytes % 5 % Eosinophils % 1 % Basophils % 1 % Neutrophils # 5.2 (1.3-7.7) k/uL Lymphocytes # 1.6 (1.0-4.8) k/uL Monocytes # 0.4 (0-1.0) k/uL Eosinophils # 0.1 (0-0.7) k/uL Basophils # 0.1 (0-0.2) k/uL Sodium 145 (137-145) mmol/L Potassium 4.5 (3.5-5.1) mmol/L Chloride 107 (98-107) mmol/L Carbon Dioxide 26 (22-30) mmol/L Anion Gap 12 mmol/L BUN 16 (7-17) mg/dL Creatinine 0.96 (0.52-1.04) mg/dL Est GFR (MDRD) Af Amer >60 (>60 ml/min/1.73 sqM) Est GFR (MDRD) Non-Af >60 (>60 ml/min/1.73 sqM) Glucose 98 (74-99) mg/dL Plasma Lactic Acid Mandeep 1.3 (0.7-2.0) mmol/L Calcium 10.1 (8.4-10.2) mg/dL Total Bilirubin 0.3 (0.2-1.3) mg/dL AST 20 (14-36) U/L ALT 24 (9-52) U/L Alkaline Phosphatase 69 (38-126) U/L Total Protein 7.5 (6.3-8.2) g/dL Albumin 4.3 (3.5-5.0) g/dL Amylase 105 (30-110) U/L Lipase 63 (23-300) U/L Urine Color Urine Appearance (Clear) Urine pH (5.0-8.0) Ur Specific [place] (1.001-1.035) Urine Protein (Negative) Urine Glucose (UA) (Negative) Urine Ketones (Negative) Urine Blood (Negative) Urine Nitrate (Negative) Urine Bilirubin (Negative) Urine Urobilinogen (<2.0) mg/dL Ur Leukocyte Esterase (Negative) Urine RBC (0-5) /hpf Urine WBC (0-5) /hpf Ur Squamous Epith Cells (0-4) /hpf Amorphous Sediment (None) /hpf Urine Bacteria (None) /hpf 01/10/17 Range/Units 17:13 WBC (3.8-10.6) k/uL RBC (3.80-5.40) m/uL Hgb (11.4-16.0) gm/dL Hct (34.0-46.0) % MCV (80.0-100.0) fL MCH (25.0-35.0) pg MCHC (31.0-37.0) g/dL RDW (11.5-15.5) % Plt Count (150-450) k/uL Neutrophils % % Lymphocytes % % Monocytes % % Eosinophils % % Basophils % % Neutrophils # (1.3-7.7) k/uL Lymphocytes # (1.0-4.8) k/uL Monocytes # (0-1.0) k/uL Eosinophils # (0-0.7) k/uL Basophils # (0-0.2) k/uL Sodium (137-145) mmol/L Potassium (3.5-5.1) mmol/L Chloride (98-107) mmol/L Carbon Dioxide (22-30) mmol/L Anion Gap mmol/L BUN (7-17) mg/dL Creatinine (0.52-1.04) mg/dL Est GFR (MDRD) Af Amer (>60 ml/min/1.73 sqM) Est GFR (MDRD) Non-Af (>60 ml/min/1.73 sqM) Glucose (74-99) mg/dL Plasma Lactic Acid Mandeep (0.7-2.0) mmol/L Calcium (8.4-10.2) mg/dL Total Bilirubin (0.2-1.3) mg/dL AST (14-36) U/L ALT (9-52) U/L Alkaline Phosphatase (38-126) U/L Total Protein (6.3-8.2) g/dL Albumin (3.5-5.0) g/dL Amylase (30-110) U/L Lipase (23-300) U/L Urine Color Yellow Urine Appearance Cloudy H (Clear) Urine pH 6.5 (5.0-8.0) Ur Specific [place] 1.011 (1.001-1.035) Urine Protein Negative (Negative) Urine Glucose (UA) Negative (Negative) Urine Ketones Negative (Negative) Urine Blood Negative (Negative) Urine Nitrate Negative (Negative) Urine Bilirubin Negative (Negative) Urine Urobilinogen <2.0 (<2.0) mg/dL Ur Leukocyte Esterase Large H (Negative) Urine RBC 7 H (0-5) /hpf Urine WBC 18 H (0-5) /hpf Ur Squamous Epith Cells 2 (0-4) /hpf Amorphous Sediment Rare H (None) /hpf Urine Bacteria Few H (None) /hpf Disposition Clinical Impression: Abdominal pain Disposition: HOME SELF-CARE Condition: Good Instructions: Abdominal Pain (ED) Referrals: Mario Mcdaniels DO [Primary Care Provider] - 1-2 days Time of Disposition: 17:55
[2017-01-10 17:21] LABS: Basophils # (A) 0.1 k/uL (0-0.2); Basophils % (A) 1 %; CH 33.7; CHCM 35.2; Eosinophils # (A) 0.1 k/uL (0-0.7); Eosinophils % (A) 1 %; HCT 38.2 % (34.0-46.0); HGB 13.3 gm/dL (11.4-16.0); Luc # (Auto) 0.15; Luc % (Auto) 2; Lymphocytes # (A) 1.6 k/uL (1.0-4.8); Lymphocytes % (A) 21 %; MCH 33.6 pg (25.0-35.0); MCHC 34.9 g/dL (31.0-37.0); MCV 96.2 fL (80.0-100.0); Mean Platelet Volume 7.1; Monocytes # (A) 0.4 k/uL (0-1.0); Monocytes % (A) 5 %; Neutrophils # (A) 5.2 k/uL (1.3-7.7); Neutrophils % (A) 70 %; RBC 3.97 m/uL (3.80-5.40); RDW 12.6 % (11.5-15.5); WBC 7.4 k/uL (3.8-10.6); WBC (Perox) 7.67
[2017-01-10 17:22] LABS: ALT 24 U/L (9-52); AST 20 U/L (14-36); Alkaline Phosphatase 69 U/L (38-126); Amylase 105 U/L (30-110); Anion Gap 12 mmol/L; Blood Urea Nitrogen 16 mg/dL (7-17); Calcium 10.1 mg/dL (8.4-10.2); Carbon Dioxide 26 mmol/L (22-30); Chloride 107 mmol/L (98-107); Glucose 98 mg/dL (74-99); Non-African American GFR(MDRD) >60 (>60 ml/min/1.73 sqM); Potassium 4.5 mmol/L (3.5-5.1); Sodium 145 mmol/L (137-145); Total Bilirubin 0.3 mg/dL (0.2-1.3); Total Protein 7.5 g/dL (6.3-8.2)
[2017-01-10 17:28] LABS: Amorphous Sediment,Urine Rare /hpf; Appearance,Urine Cloudy (Clear); Bacteria,Urine Few /hpf; Bilirubin,Urine Negative (Negative); Glucose,Urine (UA) Negative (Negative); Ketones,Urine Negative (Negative); Leukocyte Esterase,Urine Large (Negative); Nitrite,Urine Negative (Negative); PH, Urine 6.5 (5.0-8.0); Particle Count 9378; Protein,Urine Negative (Negative); RBC,Urine 7 /hpf (0-5); Specific Gravity,Urine 1.011 (1.001-1.035); Squamous Epithelial Cell,Urine 2 /hpf (0-4); UA Billing (MACRO vs. MICRO) MICRO; Urobilinogen,Urine <2.0 mg/dL (<2.0); WBC,Urine 18 /hpf (0-5)
--- NOTE | 2017-01-10 17:29 | XR ---
EXAMINATION TYPE: XR KUB DATE OF EXAM: 01/10/2017 5:22 PM COMPARISON: 11/01/2016 HISTORY: Right lower quadrant pain TECHNIQUE: 2 views FINDINGS: Bowel gas pattern is normal. There is no sign of intestinal obstruction or pneumoperitoneum . Fecal pattern is normal. There are clips from cholecystectomy. Bony structures are intact. There is no sign of a mass. There are no pathologic calcifications over the kidneys. Lung bases are clear. IMPRESSION: Nonacute abdomen. No change.
[2017-01-10 18:18] VITALS: BP 112/73; PULSE 95; RESP 18; TEMP 98.4
== END 2017-01-10 18:17 | disposition home or self-care (01) ==
LOC: EC 15:47
DX: R10.11 Right upper quadrant pain (principal); R11.10 Vomiting, unspecified; F17.200 Nicotine dependence, unspecified, uncomplicated; Z87.19 Personal history of other diseases of the digestive system; F31.9 Bipolar disorder, unspecified; F41.9 Anxiety disorder, unspecified; F41.0 Panic disorder [episodic paroxysmal anxiety]; Z79.899 Other long term (current) drug therapy; Z88.6 Allergy status to analgesic agent
CPT/HCPCS: 36415; 80053; 82150; 83605; 83690; 85025; 81001; 74000; 99284; 96374; 96361; J2405

== ENCOUNTER 2017-02-04 15:37 | Emergency (ER) | payer OTHER ==
[2017-02-04 15:44] VITALS: BP 129/67; PULSE 122; RESP 20; TEMP 98.3
--- NOTE | 2017-02-04 17:26 | ED ---
General Adult HPI - General Chief complaint: Extremity Injury, Lower Stated complaint: right foot pain Time Seen by Provider: 02/04/17 16:34 Source: patient, RN notes reviewed Mode of arrival: wheelchair Limitations: no limitations - History of Present Illness Initial comments: This is a 51-year-old female who presents with right ankle pain after rolling her ankle today. Patient states she has not been able to ambulate. Patient denies any numbness/weakness or tingling. Patient denies being on any anticoagulants.Patient denies any recent fever, chills, shortness breath, chest pain, abdominal pain, nausea/vomiting/diarrhea, back pain, hematuria, headache, or visual changes, or any other complaints. - Related Data Home Medications Medication Instructions Recorded Confirmed clonazePAM [KlonoPIN] 1 mg PO DAILY PRN 11/18/14 02/04/17 Butalb/APAP/Caff 50-325-40Mg 1 tab PO Q8H PRN 01/10/17 02/04/17 [Fioricet 50-325-40] DULoxetine HCL [Cymbalta] 60 mg PO DAILY 01/10/17 02/04/17 traMADol HCL [Ultram] 100 mg PO Q6HR PRN 01/10/17 02/04/17 Allergies Allergy/AdvReac Type Severity Reaction Status Date / Time ibuprofen [From Motrin] Allergy Rash/Hives Verified 02/04/17 15:44 strawberry Allergy Rash/Hives Verified 02/04/17 15:44 Review of Systems ROS Statement: Those systems with pertinent positive or pertinent negative responses have been documented in the HPI. ROS Other: All systems not noted in ROS Statement are negative. Past Medical History Past Medical History: GI Bleed Additional Past Medical History / Comment(s): DIVERTICULITIS.HERNIA, herniated discs,sciatica, History of Any Multi-Drug Resistant Organisms: None Reported Past Surgical History: Cholecystectomy, Hysterectomy Additional Past Surgical History / Comment(s): right ankle fracture Past Anesthesia/Blood Transfusion Reactions: No Reported Reaction Past Psychological History: Anxiety, Bipolar, Depression, Panic Disorder Additional Psychological History / Comment(s): dyslexia Smoking Status: Current every day smoker Past Alcohol Use History: None Reported Additional Past Alcohol Use History / Comment(s): STARTED SMOKING AT AGE 27 1 PACK WILL LAST 1 WEEK- SMOKING CESSATION BOOKLET GIVEN TO PT. Past Drug Use History: None Reported - Past Family History Mother Family Medical History: Deep Vein Thrombosis (DVT) Father Family Medical History: Cancer, Hypertension Additional Family Medical History / Comment(s): dad has bladder ca General Exam - General Exam Comments Initial Comments: General: The patient is awake and alert, in no distress, and does not appear acutely ill. Neck: The neck is supple, there is no tenderness or JVD. Cardiovascular: There is a regular rate and rhythm. No murmur, rub or gallop is appreciated. Respiratory: Lungs are clear to auscultation, respirations are non-labored, breath sounds are equal. No wheezes, stridor, rales, or rhonchi. Musculoskeletal: There is tenderness to palpation over the lateral aspect of the right ankle and mild tenderness to palpation over the lateral aspect of the right foot. There is no swelling, erythema or ecchymosis. There is full range of motion, strength 5/5 and Sensation intact. Posterior tibial pulses are 2+ bilaterally, dorsalis pedis pulses are 2+ bilaterally. Capillary refill is normal at less than 2 seconds. Neurological: A&O x 3. CN II-XII intact, There are no obvious motor or sensory deficits. Coordination appears grossly intact. Speech is normal. Skin: Skin is warm and dry and no rashes or lesions are noted. Psychiatric: Normal mood and affect. Limitations: no limitations Course Vital Signs 02/04/17 15:43 Temperature 98.3 F Pulse Rate 122 H Respiratory 20 Rate Blood Pressure 129/67 O2 Sat by Pulse 97 Oximetry Medical Decision Making - Medical Decision Making This is a 51-year-old female presents with right ankle pain after rolling her ankle today. On physical exam there is tenderness to palpation over the lateral aspect of the right ankle and mild tenderness to palpation over the lateral aspect of the right foot. There is no swelling, erythema or ecchymosis. There is full range of motion, strength 5/5 and Sensation intact. Posterior tibial pulses are 2+ bilaterally, dorsalis pedis pulses are 2+ bilaterally. Capillary refill is normal at less than 2 seconds. Patient is given a Tylenol and the EC today. X-rays of the right ankle and right foot were done and reviewed showing:X-ray right foot: No evidence of fracture or dislocation. X-ray right ankle: No evidence of fracture or dislocation. Reports read by Dr. Lewis. Patient left the EC before I could talk to her about the results of her x-rays or about her discharge instructions. Patient was walking in the EC without any difficulty. Patient was given her discharge instructions by the nurse in the EC waiting room and would not come back to her room in the EC for discharge instructions. Patient was given a prescription for an air cast in the waiting room and patient refused Jarrell wrap. Disposition Clinical Impression: Ankle sprain Disposition: HOME SELF-CARE Condition: Good Instructions: Ankle Sprain (ED) Additional Instructions: Please rest, ice, elevate and use Jarrell wrap for compression. Please use Aircast while up and walking. Please use Tylenol for any pain. Please perform range motion exercises periodically throughout the day. If symptoms do not improve in the next 7 days repeat x-rays may be needed to rule out occult fracture. Please follow-up with family doctor in the next 2 days of symptoms have not improved. Please return to emergency room if the symptoms increase or worsen or for any other concerns. Referrals: aMrio Mcdaniels DO [Primary Care Provider] - 1-2 days Time of Disposition: 18:01
[2017-02-04] MEDS ORDERED: ACETAMINOPHEN TAB 500 MG TAB PO STA (17:42)
--- NOTE | 2017-02-04 17:56 | XR ---
EXAMINATION TYPE: XR foot complete RT DATE OF EXAM: 02/04/2017 5:18 PM COMPARISON: NONE HISTORY: Right foot and ankle pain after fall TECHNIQUE: 3 views of the right foot were obtained. FINDINGS: There is no evidence of acute fracture or dislocation. No localized soft tissue swelling is noted. Incidental accessory os navicular is noted. Osseous mineralization is within normal limits. Ankle mortise appears intact. IMPRESSION: No evidence of fracture or dislocation.
--- NOTE | 2017-02-04 17:57 | XR ---
EXAMINATION TYPE: XR ankle complete RT DATE OF EXAM: 02/04/2017 5:18 PM COMPARISON: NONE HISTORY: Right ankle pain after fall TECHNIQUE: 3 views of the right ankle were obtained. FINDINGS: There is no evidence of acute fracture or dislocation. No localized soft tissue swelling is seen. There is no evidence of joint effusion. Ankle mortise is intact. IMPRESSION: No evidence of fracture or dislocation.
== END 2017-02-04 18:11 | disposition home or self-care (01) ==
LOC: EC 15:37
DX: S93.401A Sprain of unspecified ligament of right ankle, initial encounter (principal); F31.9 Bipolar disorder, unspecified; F41.9 Anxiety disorder, unspecified; F41.0 Panic disorder [episodic paroxysmal anxiety]; F17.200 Nicotine dependence, unspecified, uncomplicated; Z79.899 Other long term (current) drug therapy; Z88.6 Allergy status to analgesic agent; Z91.018 Allergy to other foods; X50.1XXA Overexertion from prolonged static or awkward postures, initial encounter; Y93.9 Activity, unspecified; Y92.59 Other trade areas as the place of occurrence of the external cause
CPT/HCPCS: 96361; 96374; 96376; 99283; 99291

== ENCOUNTER 2017-03-06 13:59 | Emergency (ER) | payer OTHER ==
[2017-03-06] MEDS ORDERED: SODIUM CHLORIDE 0.9% 500 ML IV STA (14:08)
[2017-03-06 14:37] LABS: Basophils # (A) 0.1 k/uL (0-0.2); Basophils % (A) 1 %; CH 34.2; Eosinophils # (A) 0.1 k/uL (0-0.7); Eosinophils % (A) 1 %; HCT 39.7 % (34.0-46.0); HDW 2.38; HGB 13.5 gm/dL (11.4-16.0); Luc % (Auto) 3; Lymphocytes # (A) 2.7 k/uL (1.0-4.8); Lymphocytes % (A) 37 %; MCH 33.4 pg (25.0-35.0); MCV 98.3 fL (80.0-100.0); Mean Platelet Volume 6.5; Monocytes # (A) 0.5 k/uL (0-1.0); Monocytes % (A) 7 %; Neutrophils # (A) 3.7 k/uL (1.3-7.7); Neutrophils % (A) 51 %; RBC 4.05 m/uL (3.80-5.40); RDW 13.1 % (11.5-15.5); WBC 7.2 k/uL (3.8-10.6); WBC (Perox) 6.93
[2017-03-06 14:47] LABS: ALT 56 U/L (9-52); AST 26 U/L (14-36); Alkaline Phosphatase 66 U/L (38-126); Amylase 76 U/L (30-110); Anion Gap 9 mmol/L; Blood Urea Nitrogen 14 mg/dL (7-17); Calcium 9.6 mg/dL (8.4-10.2); Carbon Dioxide 23 mmol/L (22-30); Chloride 109 mmol/L (98-107); Glucose 101 mg/dL (74-99); Non-African American GFR(MDRD) >60 (>60 ml/min/1.73 sqM); Potassium 4.2 mmol/L (3.5-5.1); Sodium 141 mmol/L (137-145); Total Bilirubin 0.5 mg/dL (0.2-1.3)
[2017-03-06] MEDS ORDERED: traMADol 50 MG TAB PO STA (14:55)
--- NOTE | 2017-03-06 14:57 | XR ---
EXAMINATION TYPE: XR KUB DATE OF EXAM: 03/06/2017 2:44 PM CLINICAL HISTORY: Right lower quadrant pain with nausea vomiting diarrhea for one day. TECHNIQUE: Single supine KUB image of the abdomen is obtained. COMPARISON: CT abdomen and pelvis January 05, 2017. FINDINGS: Scattered gas is seen in non-distended stomach and small bowel loops. Gas and fecal mater ial is seen in non-distended colon. Cholecystectomy clips are redemonstrated. Left-sided pelvic phle bolith is seen. There is no visceromegaly, pneumoperitoneum, or abnormal calcification appreciated. The lung bases are clear and the osseous structures are intact. IMPRESSION: Overall nonobstructive bowel gas pattern. No significant change from prior studies.
--- NOTE | 2017-03-06 14:58 | ED ---
Abdominal Pain HPI - General Chief Complaint: Abdominal Pain Stated Complaint: appendix-sent by [employer] Time Seen by Provider: 03/06/17 14:08 Source: patient, RN notes reviewed Mode of arrival: ambulatory Limitations: no limitations - History of Present Illness Initial Comments: 51-year-old female presents emergency Department chief complaint abdominal pain. Patient has chronic abdominal pain and has had several your visit for this pain. Patient states pain is under before. Patient went to urgent care center here for further evaluation. Patient denies any dysuria hematuria. Denies any vaginal bleeding vaginal discharge. She's had prior hysterectomy. Patient states pain is consistent with similar past does not radiate to her back. Denies any chest pain or shortness breath. Patient states she did have one episode of vomiting and one episode of diarrhea. Patient denies any sick contacts. She has not taken anything for the pain. - Related Data Home Medications Medication Instructions Recorded Confirmed clonazePAM [KlonoPIN] 1 mg PO DAILY PRN 11/18/14 03/06/17 Allergies Allergy/AdvReac Type Severity Reaction Status Date / Time ibuprofen [From Motrin] Allergy Rash/Hives Verified 03/06/17 15:09 strawberry Allergy Rash/Hives Verified 03/06/17 15:09 Review of Systems ROS Statement: Those systems with pertinent positive or pertinent negative responses have been documented in the HPI. ROS Other: All systems not noted in ROS Statement are negative. Past Medical History Past Medical History: GI Bleed Additional Past Medical History / Comment(s): DIVERTICULITIS.HERNIA, herniated discs,sciatica, History of Any Multi-Drug Resistant Organisms: None Reported Past Surgical History: Cholecystectomy, Hysterectomy Additional Past Surgical History / Comment(s): right ankle fracture Past Anesthesia/Blood Transfusion Reactions: No Reported Reaction Past Psychological History: Anxiety, Bipolar, Depression, Panic Disorder Additional Psychological History / Comment(s): dyslexia Smoking Status: Current every day smoker Past Alcohol Use History: None Reported Additional Past Alcohol Use History / Comment(s): STARTED SMOKING AT AGE 27 1 PACK WILL LAST 1 WEEK- SMOKING CESSATION BOOKLET GIVEN TO PT. Past Drug Use History: None Reported - Past Family History Mother Family Medical History: Deep Vein Thrombosis (DVT) Father Family Medical History: Cancer, Hypertension Additional Family Medical History / Comment(s): dad has bladder ca General Exam Limitations: no limitations General appearance: alert, in no apparent distress Head exam: Present: atraumatic, normocephalic, normal inspection Respiratory exam: Present: normal lung sounds bilaterally. Absent: respiratory distress, wheezes, rales, rhonchi, stridor Cardiovascular Exam: Present: regular rate, normal rhythm, normal heart sounds. Absent: systolic murmur, diastolic murmur, rubs, gallop, clicks GI/Abdominal exam: Present: soft, tenderness (Mild right mid to upper abdomen tenderness ), normal bowel sounds. Absent: distended, guarding, rebound, rigid Back exam: Absent: CVA tenderness (R), CVA tenderness (L) Neurological exam: Present: alert Skin exam: Present: warm, dry, intact, normal color. Absent: rash Course Vital Signs 03/06/17 14:00 Temperature 98.1 F Pulse Rate 109 H Respiratory 20 Rate Blood Pressure 120/87 O2 Sat by Pulse 99 Oximetry Medical Decision Making - Medical Decision Making 51-year-old female presented for abdominal pain. Patient is chronic abdominal pain. This pain is usual pain for her. Patient has no right lower quadrant tenderness she has mid to right upper quadrant tenderness. Patient lab work within normal limits. Patient will be given on-call surgery to follow up with return parameters were discussed. - Lab Data Result diagrams: 03/06/17 14:27 03/06/17 14:27 Lab Results 03/06/17 03/06/17 03/06/17 Range/Units 14:27 14:27 14:27 WBC 7.2 (3.8-10.6) k/uL RBC 4.05 (3.80-5.40) m/uL Hgb 13.5 (11.4-16.0) gm/dL Hct 39.7 (34.0-46.0) % MCV 98.3 (80.0-100.0) fL MCH 33.4 (25.0-35.0) pg MCHC 34.0 (31.0-37.0) g/dL RDW 13.1 (11.5-15.5) % Plt Count 327 (150-450) k/uL Neutrophils % 51 % Lymphocytes % 37 % Monocytes % 7 % Eosinophils % 1 % Basophils % 1 % Neutrophils # 3.7 (1.3-7.7) k/uL Lymphocytes # 2.7 (1.0-4.8) k/uL Monocytes # 0.5 (0-1.0) k/uL Eosinophils # 0.1 (0-0.7) k/uL Basophils # 0.1 (0-0.2) k/uL Sodium 141 (137-145) mmol/L Potassium 4.2 (3.5-5.1) mmol/L Chloride 109 H (98-107) mmol/L Carbon Dioxide 23 (22-30) mmol/L Anion Gap 9 mmol/L BUN 14 (7-17) mg/dL Creatinine 0.82 (0.52-1.04) mg/dL Est GFR (MDRD) Af Amer >60 (>60 ml/min/1.73 sqM) Est GFR (MDRD) Non-Af >60 (>60 ml/min/1.73 sqM) Glucose 101 H (74-99) mg/dL Calcium 9.6 (8.4-10.2) mg/dL Total Bilirubin 0.5 (0.2-1.3) mg/dL AST 26 (14-36) U/L ALT 56 H (9-52) U/L Alkaline Phosphatase 66 (38-126) U/L Total Protein 8.0 (6.3-8.2) g/dL Albumin 4.6 (3.5-5.0) g/dL Amylase 76 (30-110) U/L Lipase 98 (23-300) U/L Urine Color Colorless Urine Appearance Clear (Clear) Urine pH 6.0 (5.0-8.0) Ur Specific [place] 1.003 (1.001-1.035) Urine Protein Negative (Negative) Urine Glucose (UA) Negative (Negative) Urine Ketones Negative (Negative) Urine Blood Negative (Negative) Urine Nitrite Negative (Negative) Urine Bilirubin Negative (Negative) Urine Urobilinogen <2.0 (<2.0) mg/dL Ur Leukocyte Esterase Negative (Negative) Disposition Clinical Impression: Chronic abdominal pain Disposition: HOME SELF-CARE Condition: Stable Instructions: Abdominal Pain (ED) Additional Instructions: Please return to the Emergency Department if symptoms worsen or any other concerns. Referrals: Mario Mcdaniels DO [Primary Care Provider] - 1-2 days Teresa Jesus MD [STAFF PHYSICIAN] - 1-2 days
[2017-03-06 14:59] LABS: Appearance,Urine Clear (Clear); Bilirubin,Urine Negative (Negative); Glucose,Urine (UA) Negative (Negative); Ketones,Urine Negative (Negative); Leukocyte Esterase,Urine Negative (Negative); Nitrite,Urine Negative (Negative); Protein,Urine Negative (Negative); Specific Gravity,Urine 1.003 (1.001-1.035); UA Billing (MACRO vs. MICRO) CHEM; Urobilinogen,Urine <2.0 mg/dL (<2.0)
[2017-03-06 15:19] VITALS: BP 115/57; PULSE 104; RESP 18; TEMP 98.4
== END 2017-03-06 15:20 | disposition home or self-care (01) ==
LOC: EC 13:59
DX: R10.11 Right upper quadrant pain (principal); G89.29 Other chronic pain; R11.10 Vomiting, unspecified; R19.7 Diarrhea, unspecified; F17.200 Nicotine dependence, unspecified, uncomplicated; Z87.19 Personal history of other diseases of the digestive system; Z88.6 Allergy status to analgesic agent; Z91.018 Allergy to other foods; Z90.49 Acquired absence of other specified parts of digestive tract
CPT/HCPCS: 36415; 74000; 80053; 81003; 82150; 83690; 85025; 96360; 99284

== ENCOUNTER 2017-04-02 18:26 | Emergency (ER) | payer OTHER ==
[2017-04-02] MEDS ORDERED: ONDANSETRON 4 MG/2 ML VIAL IVP STA (19:03)
[2017-04-02] MEDS ORDERED: SODIUM CHLORIDE 0.9% 500 ML IV STA (19:03)
[2017-04-02] MEDS ORDERED: SODIUM CHLORIDE 0.9% 1,000 ML IV STA (19:03)
--- NOTE | 2017-04-02 19:08 | ED ---
General Adult HPI - General Chief complaint: Abdominal Pain Stated complaint: RT SIDE PAIN X 5 DAYS Time Seen by Provider: 04/02/17 18:48 Source: patient, RN notes reviewed, old records reviewed Mode of arrival: ambulatory Limitations: no limitations - History of Present Illness Initial comments: Chief complaint and history of present illness this is a 51-year-old female with recurrent right lower quadrant pain. Patient reports she started 2 days ago. Loose stool. Patient was seen emergency room multiple times for the same complaint same problem. Patient doesn't past history of diverticulosis and diverticulitis. One time she had a GI bleed she can't remember the circumstances of that incident. - Related Data Home Medications Medication Instructions Recorded Confirmed clonazePAM [KlonoPIN] 1 mg PO DAILY PRN 11/18/14 04/02/17 Previous Rx's Medication Instructions Recorded Ciprofloxacin HCl [Cipro] 500 mg PO Q12HR #14 tablet 04/02/17 metroNIDAZOLE [Flagyl] 500 mg PO QID #28 tab 04/02/17 Allergies Allergy/AdvReac Type Severity Reaction Status Date / Time ibuprofen [From Motrin] Allergy Rash/Hives Verified 04/02/17 19:17 strawberry Allergy Rash/Hives Verified 04/02/17 19:17 Review of Systems ROS Statement: Those systems with pertinent positive or pertinent negative responses have been documented in the HPI. review of systems no headache chest pain or shortness of breath or trouble urinating. She complains of pain to the right lower quadrant pain. All systems are reviewed Past medical problems diverticulitis and persistent right lower quadrant pain with multiple visits examinations. Surgeries hysterectomy, cholecystectomy right ankle surgery. Family history no cancers. Patient has ALLERGIES to ibuprofen strawberry. Smokes daily advised to stop her symptoms possible denies alcohol use ROS Other: All systems not noted in ROS Statement are negative. Past Medical History Past Medical History: GI Bleed Additional Past Medical History / Comment(s): DIVERTICULITIS.HERNIA, herniated discs,sciatica, History of Any Multi-Drug Resistant Organisms: None Reported Past Surgical History: Cholecystectomy, Hysterectomy Additional Past Surgical History / Comment(s): right ankle fracture Past Anesthesia/Blood Transfusion Reactions: No Reported Reaction Past Psychological History: Anxiety, Bipolar, Depression, Panic Disorder Additional Psychological History / Comment(s): dyslexia Smoking Status: Current every day smoker Past Alcohol Use History: None Reported Additional Past Alcohol Use History / Comment(s): STARTED SMOKING AT AGE 27 1 PACK WILL LAST 1 WEEK- SMOKING CESSATION BOOKLET GIVEN TO PT. Past Drug Use History: None Reported - Past Family History Mother Family Medical History: Deep Vein Thrombosis (DVT) Father Family Medical History: Cancer, Hypertension Additional Family Medical History / Comment(s): dad has bladder ca General Exam - General Exam Comments Initial Comments: General: The patient is awake and alert, playing a right lower quadrant pain for 2 days. Vital signs temp 98.1 pulse 120 respiratory rate 20 pulse ox 98% room air blood pressure 137/66 Eye: Pupils are equal, round and reactive to light, extra-ocular movements are intact ; there is normal conjunctiva bilaterally. No signs of icterus. Ears, nose, mouth and throat: There are moist mucous membranes and no oral lesions. Neck: The neck is supple, there is no tenderness . Cardiovascular: There is a regular rate and rhythm. No murmur, rub or gallop is appreciated. Respiratory: Lungs are clear to auscultation, respirations are non-labored, breath sounds are equal. No wheezes, stridor, rales, or rhonchi. Gastrointestinal: point specific pain to the right lower quadrant. No rebound or referred pain she has voluntary guarding over that area. No pain in the right femoral canal. Negative Wynne sign. No bruises noted. Back: There is no tenderness to palpation in the midline. There is no obvious deformity. No rashes noted. Musculoskeletal: Normal ROM, no tenderness, There is no pedal edema. There is no calf tenderness or swelling. Sensation intact. Pulses equal bilaterally 2+. Neurological: CN II-XII intact, There are no obvious motor or sensory deficits. Coordination appears grossly intact. Speech is normal. Skin: Skin is warm and dry and no rashes or lesions are noted. Psychiatric: past history of anxiety bipolar depression and panic disorder Limitations: no limitations Course Vital Signs 04/02/17 04/02/17 18:39 20:00 Temperature 98.1 F Pulse Rate 120 H 94 Respiratory 20 18 Rate Blood Pressure 137/66 132/70 O2 Sat by Pulse 98 97 Oximetry Medical Decision Making - Medical Decision Making Medical decision-making the patient's white count 8.8 hemoglobin 12 hematocrit of 35, potassium 4.3 to BUN 21 creatinine 1.3 to GFR of only 43. Patient's urine shows large leuk esterase 6 reds and 69 whites. This is being cultured. X-ray of the abdomen was done which was reviewed by radiologist his impression is bowel gas pattern is normal. There is no sign of intestinal obstruction or pneumoperitoneum. Fecal pattern is normal lung bases are clear. There is no pathologic calcifications over the kidneys. There are clips from cholecystectomy. Impression; nonacute abdomen. As read by Dr. Hoover Plan this size for the patient be treated with Cipro 500 twice a day for 1 week for urinary tract infection. On the off chance patient has mild diverticular irregularity which has happened in the past this will cover it as she will also be placed on Flagyl 500 4 times a day for the week. The patient was advised to call follow-up with her family physician. Also advised to take milk of magnesia to help with bowel movements. - Lab Data Result diagrams: 04/02/17 19:23 04/02/17 19:23 Lab Results 04/02/17 04/02/17 04/02/17 Range/Units 19:23 19:23 19:47 WBC 8.8 (3.8-10.6) k/uL RBC 3.58 L (3.80-5.40) m/uL Hgb 12.0 (11.4-16.0) gm/dL Hct 35.6 (34.0-46.0) % MCV 99.6 (80.0-100.0) fL MCH 33.6 (25.0-35.0) pg MCHC 33.7 (31.0-37.0) g/dL RDW 13.6 (11.5-15.5) % Plt Count 306 (150-450) k/uL Neutrophils % 63 % Lymphocytes % 26 % Monocytes % 7 % Eosinophils % 1 % Basophils % 1 % Neutrophils # 5.5 (1.3-7.7) k/uL Lymphocytes # 2.3 (1.0-4.8) k/uL Monocytes # 0.6 (0-1.0) k/uL Eosinophils # 0.1 (0-0.7) k/uL Basophils # 0.1 (0-0.2) k/uL Sodium 144 (137-145) mmol/L Potassium 4.3 (3.5-5.1) mmol/L Chloride 109 H (98-107) mmol/L Carbon Dioxide 26 (22-30) mmol/L Anion Gap 9 mmol/L BUN 21 H (7-17) mg/dL Creatinine 1.30 H (0.52-1.04) mg/dL Est GFR (MDRD) Af Amer 52 (>60 ml/min/1.73 sqM) Est GFR (MDRD) Non-Af 43 (>60 ml/min/1.73 sqM) Glucose 90 (74-99) mg/dL Calcium 9.9 (8.4-10.2) mg/dL Total Bilirubin 0.2 (0.2-1.3) mg/dL AST 28 (14-36) U/L ALT 30 (9-52) U/L Alkaline Phosphatase 71 (38-126) U/L Total Protein 6.7 (6.3-8.2) g/dL Albumin 4.0 (3.5-5.0) g/dL Amylase 66 (30-110) U/L Lipase 53 (23-300) U/L Urine Color Yellow Urine Appearance Turbid H (Clear) Urine pH 5.5 (5.0-8.0) Ur Specific [place] 1.027 (1.001-1.035) Urine Protein 1+ H (Negative) Urine Glucose (UA) Negative (Negative) Urine Ketones Negative (Negative) Urine Blood Negative (Negative) Urine Nitrite Negative (Negative) Urine Bilirubin Negative (Negative) Urine Urobilinogen 2.0 (<2.0) mg/dL Ur Leukocyte Esterase Large H (Negative) Urine RBC 6 H (0-5) /hpf Urine WBC 64 H (0-5) /hpf Ur Squamous Epith Cells 39 H (0-4) /hpf Hyaline Casts 12 H (0-2) /lpf Urine Mucus Few H (None) /hpf Disposition Clinical Impression: Urinary tract infection, Chronic abdominal pain Disposition: HOME SELF-CARE Condition: Stable Instructions: Abdominal Pain (ED), Urinary Tract Infection in Women (ED) Additional Instructions: Increase fluids. Use milk of magnesia to 8 bowel movements. Take Cipro and Flagyl as directed for one week. Get the urine rechecked 10 days from now. Follow-up with your family physician or return emergency room as needed use Tylenol for pain Prescriptions: Ciprofloxacin HCl [Cipro] 500 mg PO Q12HR #14 tablet metroNIDAZOLE [Flagyl] 500 mg PO QID #28 tab Referrals: Mario Mcdaniels DO [Primary Care Provider] - 1-2 days Time of Disposition: 20:26
[2017-04-02] MEDS: HYDROmorphone 1 MG/ML 1 ML SYRINGE IVP STA ×2 (19:24→20:30)
[2017-04-02 19:46] LABS: Basophils # (A) 0.1 k/uL (0-0.2); Basophils % (A) 1 %; CH 34.2; CHCM 34.5; Eosinophils # (A) 0.1 k/uL (0-0.7); Eosinophils % (A) 1 %; HCT 35.6 % (34.0-46.0); HDW 2.37; Luc # (Auto) 0.22; Luc % (Auto) 3; Lymphocytes # (A) 2.3 k/uL (1.0-4.8); Lymphocytes % (A) 26 %; MCH 33.6 pg (25.0-35.0); MCHC 33.7 g/dL (31.0-37.0); MCV 99.6 fL (80.0-100.0); Mean Platelet Volume 6.5; Monocytes # (A) 0.6 k/uL (0-1.0); Monocytes % (A) 7 %; Neutrophils # (A) 5.5 k/uL (1.3-7.7); Neutrophils % (A) 63 %; RBC 3.58 m/uL (3.80-5.40); RDW 13.6 % (11.5-15.5); WBC 8.8 k/uL (3.8-10.6); WBC (Perox) 9.42
[2017-04-02 19:56] LABS: Calcium 9.9 mg/dL (8.4-10.2); Potassium 4.3 mmol/L (3.5-5.1); Total Bilirubin 0.2 mg/dL (0.2-1.3); Total Protein 6.7 g/dL (6.3-8.2)
[2017-04-02 19:58] LABS: Appearance,Urine Turbid (Clear); Bilirubin,Urine Negative (Negative); Glucose,Urine (UA) Negative (Negative); Ketones,Urine Negative (Negative); Leukocyte Esterase,Urine Large (Negative); Mucus,Urine Few /hpf; Nitrite,Urine Negative (Negative); PH, Urine 5.5 (5.0-8.0); Particle Count 13649; Protein,Urine 1+ (Negative); RBC,Urine 6 /hpf (0-5); Specific Gravity,Urine 1.027 (1.001-1.035); Squamous Epithelial Cell,Urine 39 /hpf (0-4); UA Billing (MACRO vs. MICRO) MICRO; WBC,Urine 64 /hpf (0-5)
--- NOTE | 2017-04-02 20:06 | XR ---
EXAMINATION TYPE: XR abdomen 2V DATE OF EXAM: 04/02/2017 7:49 PM COMPARISON: 01/10/2017 HISTORY: Right lower quadrant pain TECHNIQUE: 2 views FINDINGS: Bowel gas pattern is normal. There is no sign of intestinal obstruction or pneumoperitoneum. Fecal p attern is normal. Lung bases are clear. There are no pathologic calcifications over the kidneys. Ther e are clips from cholecystectomy. IMPRESSION: Nonacute abdomen.
[2017-04-02 20:09] VITALS: RESP 18
[2017-04-02] MEDS ORDERED: metroNIDAZOLE 500 MG TAB PO STA (20:25)
[2017-04-02] MEDS ORDERED: CIPROFLOXACIN HCL 500 MG TAB PO STA (20:25)
[2017-04-02 20:47] VITALS: BP 129/79; PULSE 95; TEMP 98
== END 2017-04-02 20:47 | disposition home or self-care (01) ==
LOC: EC 18:26
DX: N39.0 Urinary tract infection, site not specified (principal); R10.31 Right lower quadrant pain; Z88.6 Allergy status to analgesic agent; Z91.018 Allergy to other foods; Z87.19 Personal history of other diseases of the digestive system; Z90.49 Acquired absence of other specified parts of digestive tract; Z90.710 Acquired absence of both cervix and uterus
CPT/HCPCS: 36415; 80053; 82150; 83690; 85025; 81001; 87086; 74020; 99284; 96374; 96375; 96361; J2405; J1170

== ENCOUNTER 2017-04-03 21:48 | Emergency (ER) | payer OTHER ==
[2017-04-03 21:57] VITALS: RESP 18
[2017-04-03] MEDS ORDERED: NITROGLYCERIN SL TABS 0.4 MG TAB SUBLINGUAL STA (22:20)
--- NOTE | 2017-04-03 22:26 | ED ---
Chest Pain HPI - General Chief Complaint: Chest Pain Stated Complaint: SOB Time Seen by Provider: 04/03/17 22:15 Source: patient Mode of arrival: ambulatory Limitations: no limitations - History of Present Illness Initial Comments: This patient is a 51-year-old woman presenting to be evaluated for substernal chest pain, that she describes as constant, sharp, severe and that started about 90 minutes ago after she had an argument with her father. She states that her fingers of her left hand feel little tingly. The patient denies any associated symptoms, including no diaphoresis, dyspnea, nausea or vomiting, palpitations, lightheadedness or syncope. MD Complaint: chest pain Onset/Timin -: minutes(s) Onset: other (After an argument) Pain Location: substernal Severity: severe Quality: sharp Consistency: constant Improves With: nothing Worsens With: nothing Treatments Prior to Arrival: none - Related Data Home Medications Medication Instructions Recorded Confirmed clonazePAM [KlonoPIN] 1 mg PO DAILY PRN 11/18/14 04/03/17 Previous Rx's Medication Instructions Recorded Hydrocodone/Acetaminophen [[place] 1 each PO Q6HR PRN #5 tab 04/04/17 5-325] Allergies Allergy/AdvReac Type Severity Reaction Status Date / Time ibuprofen [From Motrin] Allergy Rash/Hives Verified 04/03/17 22:07 strawberry Allergy Rash/Hives Verified 04/03/17 22:07 Review of Systems ROS Statement: Those systems with pertinent positive or pertinent negative responses have been documented in the HPI. ROS Other: All systems not noted in ROS Statement are negative. EKG Findings - EKG Results: EKG: interpreted by DANTE, sinus rhythm, normal axis, normal QRS, normal ST/T EKG shows: tachycardia (102 bpm) Past Medical History Past Medical History: GI Bleed Additional Past Medical History / Comment(s): DIVERTICULITIS.HERNIA, herniated discs,sciatica, History of Any Multi-Drug Resistant Organisms: None Reported Past Surgical History: Cholecystectomy, Hysterectomy Additional Past Surgical History / Comment(s): right ankle fracture Past Anesthesia/Blood Transfusion Reactions: No Reported Reaction Past Psychological History: Anxiety, Bipolar, Depression, Panic Disorder Additional Psychological History / Comment(s): dyslexia Smoking Status: Current every day smoker Past Alcohol Use History: None Reported Additional Past Alcohol Use History / Comment(s): STARTED SMOKING AT AGE 27 1 PACK WILL LAST 1 WEEK- SMOKING CESSATION BOOKLET GIVEN TO PT. Past Drug Use History: None Reported - Past Family History Mother Family Medical History: Deep Vein Thrombosis (DVT) Father Family Medical History: Cancer, Hypertension Additional Family Medical History / Comment(s): dad has bladder ca General Exam Limitations: no limitations General appearance: alert, in no apparent distress, anxious Head exam: Present: atraumatic, normocephalic Eye exam: Present: normal appearance. Absent: scleral icterus, conjunctival injection Respiratory exam: Present: normal lung sounds bilaterally. Absent: respiratory distress, wheezes, rales, rhonchi, stridor Cardiovascular Exam: Present: normal rhythm, tachycardia (Rate 104 at my exam), normal heart sounds. Absent: systolic murmur, diastolic murmur, rubs, gallop GI/Abdominal exam: Present: soft. Absent: distended, tenderness, guarding, rebound, mass Extremities exam: Present: normal inspection, normal capillary refill. Absent: pedal edema, calf tenderness Back exam: Present: normal inspection. Absent: CVA tenderness (R), CVA tenderness (L) Neurological exam: Present: alert Psychiatric exam: Present: anxious Skin exam: Present: warm, dry, intact, normal color. Absent: rash Course Vital Signs 04/03/17 04/03/17 04/04/17 21:54 23:39 00:25 Temperature 98 F Pulse Rate 97 101 H 90 Respiratory 18 18 18 Rate Blood Pressure 130/93 114/66 128/81 O2 Sat by Pulse 98 99 99 Oximetry 04/04/17 01:17 Temperature Pulse Rate 86 Respiratory 18 Rate Blood Pressure 116/59 O2 Sat by Pulse 99 Oximetry Disposition Clinical Impression: Chest pain Disposition: HOME SELF-CARE Condition: Good Instructions: Chest Pain (ED), Anxiety (ED) Prescriptions: Hydrocodone/Acetaminophen [[place] 5-325] 1 each PO Q6HR PRN #5 tab PRN Reason: Pain Referrals: Mario Mcdaniels DO [Primary Care Provider] - 1-2 days
[2017-04-03 23:05] LABS: Basophils # (A) 0.1 k/uL (0-0.2); Basophils % (A) 1 %; CHCM 34.2; Eosinophils # (A) 0.1 k/uL (0-0.7); Eosinophils % (A) 1 %; HCT 35.3 % (34.0-46.0); HDW 2.36; HGB 12.1 gm/dL (11.4-16.0); Luc # (Auto) 0.11; Luc % (Auto) 2; Lymphocytes # (A) 1.8 k/uL (1.0-4.8); Lymphocytes % (A) 28 %; MCH 34.1 pg (25.0-35.0); MCHC 34.2 g/dL (31.0-37.0); MCV 99.8 fL (80.0-100.0); Mean Platelet Volume 6.6; Monocytes # (A) 0.4 k/uL (0-1.0); Monocytes % (A) 7 %; Neutrophils # (A) 3.9 k/uL (1.3-7.7); Neutrophils % (A) 61 %; RBC 3.53 m/uL (3.80-5.40); RDW 13.5 % (11.5-15.5); WBC 6.4 k/uL (3.8-10.6); WBC (Perox) 6.64
[2017-04-03 23:14] LABS: ALT 30 U/L (9-52); AST 22 U/L (14-36); Alkaline Phosphatase 69 U/L (38-126); Anion Gap 11 mmol/L; Blood Urea Nitrogen 16 mg/dL (7-17); Calcium 10.1 mg/dL (8.4-10.2); Carbon Dioxide 23 mmol/L (22-30); Chloride 112 mmol/L (98-107); Glucose 91 mg/dL (74-99); Magnesium 2.2 mg/dL (1.6-2.3); Non-African American GFR(MDRD) >60 (>60 ml/min/1.73 sqM); Potassium 4.2 mmol/L (3.5-5.1); Sodium 146 mmol/L (137-145); Total Bilirubin 0.2 mg/dL (0.2-1.3); Total Protein 6.7 g/dL (6.3-8.2)
[2017-04-03] MEDS ORDERED: KETOROLAC 30 MG/ML 1 ML VIAL IVP STA (23:14)
[2017-04-03 23:25] LABS: Creatine Kinase 443 U/L (30-135)
[2017-04-03 23:26] LABS: Prothrombin Time 10.3 sec (9.0-12.0)
[2017-04-03 23:38] LABS: Troponin I <0.012 ng/mL (0.000-0.034)
--- NOTE | 2017-04-03 23:50 | XR ---
EXAM: XR Chest, 1 View CLINICAL HISTORY: Reason: chest pain TECHNIQUE: Frontal view of the chest. COMPARISON: Chest x-ray 01/06/17 FINDINGS: Lungs: Unremarkable. No consolidation. Pleural space: No pleural effusion. No pneumothorax. Heart: Unremarkable. No cardiomegaly. Mediastinum: Unremarkable. Bones/joints: Unremarkable. IMPRESSION: No acute cardiopulmonary disease.
[2017-04-04] MEDS ORDERED: ONDANSETRON 4 MG/2 ML VIAL IVP STA (00:02)
[2017-04-04] MEDS ORDERED: HYDROcodone/APAP 7.5-325MG 1 EACH TAB PO ONE (01:14)
[2017-04-04 02:32] VITALS: BP 111/68; PULSE 98; TEMP 97.8
== END 2017-04-04 02:29 | disposition home or self-care (01) ==
LOC: EC 21:48
DX: R07.9 Chest pain, unspecified (principal); F17.200 Nicotine dependence, unspecified, uncomplicated; Z88.6 Allergy status to analgesic agent; Z91.018 Allergy to other foods
CPT/HCPCS: 99285; 96374; 96375; 36415 ×2; 93005; 85379; 80053; 82550; 82553; 83735; 84484 ×2; 85025; 85610; 85730; 71010; J2405; J1885

== ENCOUNTER → 2017-05-06 | Outpatient (CLI) | payer OTHER ==
--- NOTE | 2017-05-06 09:59 | XR ---
EXAMINATION TYPE: XR knee complete RT DATE OF EXAM: 05/06/2017 COMPARISON: NONE HISTORY: Right knee pain following fall one month prior TECHNIQUE: 4 view right knee including sunrise view FINDINGS: Joint spaces are preserved. No joint effusion is evident. No acute or subacute fractures ar e evident. IMPRESSION: 1. Normal 4 view right knee
== END | disposition home or self-care (01) ==
LOC: RADXRMAIN 09:08
PROVIDERS: ATTEND Family Medicine
DX: M25.561 Pain in right knee (principal)

== ENCOUNTER 2017-05-19 15:48 | Emergency (ER) | payer OTHER ==
[2017-05-19] MEDS ORDERED: SODIUM CHLORIDE 0.9% 1,000 ML IV ONE (17:13)
[2017-05-19] MEDS ORDERED: HYDROmorphone 1 MG/ML 1 ML SYRINGE IVP STA ×2 (17:14→18:56)
[2017-05-19] MEDS ORDERED: ONDANSETRON 4 MG/2 ML VIAL IVP STA (17:14)
[2017-05-19] MEDS: SODIUM CHLORIDE 0.9% 500 ML IV SCH ×2 (17:18→17:19)
--- NOTE | 2017-05-19 17:19 | ED ---
Nausea/Vomiting/Diarrhea HPI - General Chief complaint: Nausea/Vomiting/Diarrhea Stated complaint: vomiting/no appetite Time Seen by Provider: 05/19/17 16:35 Source: patient, RN notes reviewed Mode of arrival: ambulatory Limitations: no limitations - History of Present Illness Initial comments: Patient is a 51-year-old female presents to the emergency room for evaluation of pain. Patient states 2 days ago she began having pain and burning during urination. Patient states she has been drinking cranberry juice without relief of symptoms. Patient states the pain has now traveled into her right flank area. Patient states she has had nausea and vomiting for the past 2 days and can't keep any medications down. Patient also states yesterday she began having right lower quadrant pain. Patient states she has a history of hysterectomy and cholecystectomy. Patient denies chest pain or shortness of breath. Patient denies headache or dizziness. Patient states she has been having low-grade fevers. Patient also states she's been having diarrhea for the past 2 days. Patient states she has a history of diverticulitis. Patient denies blood in stools. - Related Data Home Medications Medication Instructions Recorded Confirmed clonazePAM [KlonoPIN] 1 mg PO DAILY PRN 11/18/14 05/19/17 Amitriptyline HCl [Elavil] 50 mg PO HS 05/19/17 05/19/17 DULoxetine HCL [Cymbalta] 60 mg PO DAILY 05/19/17 05/19/17 traZODone HCL 50 mg PO HS 05/19/17 05/19/17 Previous Rx's Medication Instructions Recorded Phenazopyridine [Pyridium] 200 mg PO TID PRN #5 tablet 05/19/17 Sulfamethox-Tmp 800-160Mg [Bactrim 1 tab PO Q12HR 7 Days 05/19/17 DS 800-160 mg] Allergies Allergy/AdvReac Type Severity Reaction Status Date / Time ibuprofen [From Motrin] Allergy Rash/Hives Verified 05/19/17 16:56 strawberry Allergy Rash/Hives Verified 05/19/17 16:56 Review of Systems ROS Statement: Those systems with pertinent positive or pertinent negative responses have been documented in the HPI. ROS Other: All systems not noted in ROS Statement are negative. Past Medical History Past Medical History: GI Bleed Additional Past Medical History / Comment(s): DIVERTICULITIS.HERNIA, herniated discs,sciatica, History of Any Multi-Drug Resistant Organisms: None Reported Past Surgical History: Cholecystectomy, Hysterectomy Additional Past Surgical History / Comment(s): right ankle fracture Past Anesthesia/Blood Transfusion Reactions: No Reported Reaction Past Psychological History: Anxiety, Bipolar, Depression, Panic Disorder Smoking Status: Current every day smoker Past Alcohol Use History: None Reported Past Drug Use History: None Reported - Past Family History Mother Family Medical History: Deep Vein Thrombosis (DVT) Father Family Medical History: Cancer, Hypertension Additional Family Medical History / Comment(s): dad has bladder ca General Exam - General Exam Comments Initial Comments: laying in exam room, no acute distress. Limitations: no limitations General appearance: alert, in no apparent distress Head exam: Present: atraumatic, normocephalic, normal inspection Eye exam: Present: normal appearance ENT exam: Present: normal exam Neck exam: Present: normal inspection Respiratory exam: Present: normal lung sounds bilaterally. Absent: respiratory distress Cardiovascular Exam: Present: regular rate, normal rhythm, normal heart sounds GI/Abdominal exam: Present: soft, tenderness (Right lower quadrant), normal bowel sounds. Absent: distended, guarding, rebound, rigid Extremities exam: Present: normal inspection Back exam: Present: normal inspection, full ROM, CVA tenderness (R). Absent: CVA tenderness (L) Neurological exam: Present: alert, oriented X3, CN II-XII intact, normal gait Psychiatric exam: Present: normal affect, normal mood Skin exam: Present: warm, dry, intact, normal color. Absent: rash Course Vital Signs 05/19/17 05/19/17 15:51 19:13 Temperature 99.2 F Pulse Rate 98 100 Respiratory 18 16 Rate Blood Pressure 126/77 137/78 O2 Sat by Pulse 99 99 Oximetry Medical Decision Making - Medical Decision Making Patient is a 51-year-old female presents emergency room for evaluation of pain and burning during urination. urinalysis suspicious for urinary tract infection. CT abdomen/pelvis ordered to rule out kidney stone. No acute findings. Patient be treated for urinary tract infection advised to follow-up with primary care provider. Patient states she understands everything was discussed with her. Return parameters discussed. Case discussed with Dr. Clay. - Lab Data Result diagrams: 05/19/17 17:07 05/19/17 17:07 Lab Results 05/19/17 05/19/1705/19/17 Range/Units 17:07 17:07 17:07 WBC 8.3 (3.8-10.6) k/uL RBC 4.05 (3.80-5.40) m/uL Hgb 13.6 (11.4-16.0) gm/dL Hct 38.7 (34.0-46.0) % MCV 95.5 (80.0-100.0) fL MCH 33.6 (25.0-35.0) pg MCHC 35.1 (31.0-37.0) g/dL RDW 13.0 (11.5-15.5) % Plt Count 510 H (150-450) k/uL Neutrophils % 70 % Lymphocytes % 21 % Monocytes % 7 % Eosinophils % 0 % Basophils % 0 % Neutrophils # 5.8 (1.3-7.7) k/uL Lymphocytes # 1.7 (1.0-4.8) k/uL Monocytes # 0.6 (0-1.0) k/uL Eosinophils # 0.0 (0-0.7) k/uL Basophils # 0.0 (0-0.2) k/uL PT (9.0-12.0) sec INR (<1.2) APTT (22.0-30.0) sec Sodium 141 (137-145) mmol/L Potassium 4.3 (3.5-5.1) mmol/L Chloride 108 H (98-107) mmol/L Carbon Dioxide 20 L (22-30) mmol/L Anion Gap 13 mmol/L BUN 14 (7-17) mg/dL Creatinine 0.80 (0.52-1.04) mg/dL Est GFR (MDRD) Af Amer >60 (>60 ml/min/1.73 sqM) Est GFR (MDRD) Non-Af >60 (>60 ml/min/1.73 sqM) Glucose 96 (74-99) mg/dL Plasma Lactic Acid Mandeep 1.2 (0.7-2.0) mmol/L Calcium 10.1 (8.4-10.2) mg/dL Total Bilirubin 0.5 (0.2-1.3) mg/dL AST 19 (14-36) U/L ALT 34 (9-52) U/L Alkaline Phosphatase 94 (38-126) U/L Total Protein 8.3 H (6.3-8.2) g/dL Albumin 5.1 H (3.5-5.0) g/dL Amylase 57 (30-110) U/L Lipase 128 (23-300) U/L Urine Color Urine Appearance (Clear) Urine pH (5.0-8.0) Ur Specific [place] (1.001-1.035) Urine Protein (Negative) Urine Glucose (UA) (Negative) Urine Ketones (Negative) Urine Blood (Negative) Urine Nitrite (Negative) Urine Bilirubin (Negative) Urine Urobilinogen (<2.0) mg/dL Ur Leukocyte Esterase (Negative) Urine RBC (0-5) /hpf Urine WBC (0-5) /hpf Ur Squamous Epith Cells (0-4) /hpf Urine Bacteria (None) /hpf 05/19/17 05/19/17 Range/Units 17:07 17:17 WBC (3.8-10.6) k/uL RBC (3.80-5.40) m/uL Hgb (11.4-16.0) gm/dL Hct (34.0-46.0) % MCV (80.0-100.0) fL MCH (25.0-35.0) pg MCHC (31.0-37.0) g/dL RDW (11.5-15.5) % Plt Count (150-450) k/uL Neutrophils % % Lymphocytes % % Monocytes % % Eosinophils % % Basophils % % Neutrophils # (1.3-7.7) k/uL Lymphocytes # (1.0-4.8) k/uL Monocytes # (0-1.0) k/uL Eosinophils # (0-0.7) k/uL Basophils # (0-0.2) k/uL PT 10.5 (9.0-12.0) sec INR 1.0 (<1.2) APTT 24.3 (22.0-30.0) sec Sodium (137-145) mmol/L Potassium (3.5-5.1) mmol/L Chloride (98-107) mmol/L Carbon Dioxide (22-30) mmol/L Anion Gap mmol/L BUN (7-17) mg/dL Creatinine (0.52-1.04) mg/dL Est GFR (MDRD) Af Amer (>60 ml/min/1.73 sqM) Est GFR (MDRD) Non-Af (>60 ml/min/1.73 sqM) Glucose (74-99) mg/dL Plasma Lactic Acid Mandeep (0.7-2.0) mmol/L Calcium (8.4-10.2) mg/dL Total Bilirubin (0.2-1.3) mg/dL AST (14-36) U/L ALT (9-52) U/L Alkaline Phosphatase (38-126) U/L Total Protein (6.3-8.2) g/dL Albumin (3.5-5.0) g/dL Amylase (30-110) U/L Lipase (23-300) U/L Urine Color Yellow Urine Appearance Turbid H (Clear) Urine pH 5.5 (5.0-8.0) Ur Specific [place] 1.018 (1.001-1.035) Urine Protein 1+ H (Negative) Urine Glucose (UA) Negative (Negative) Urine Ketones Negative (Negative) Urine Blood Trace H (Negative) Urine Nitrite Negative (Negative) Urine Bilirubin Negative (Negative) Urine Urobilinogen <2.0 (<2.0) mg/dL Ur Leukocyte Esterase Large H (Negative) Urine RBC 28 H (0-5) /hpf Urine WBC 56 H (0-5) /hpf Ur Squamous Epith Cells 36 H (0-4) /hpf Urine Bacteria Rare H (None) /hpf - Radiology Data Radiology results: report reviewed, image reviewed Disposition Clinical Impression: Urinary tract infection Disposition: HOME SELF-CARE Condition: Good Instructions: Urinary Tract Infection in Women (ED) Additional Instructions: Drink plenty of water. Take antibiotics as directed. Please follow up with primary care provider in 1-2 days. If any new symptom arises or symptoms worsen , return to ER as soon as possible. Prescriptions: Sulfamethox-Tmp 800-160Mg [Bactrim DS 800-160 mg] 1 tab PO Q12HR 7 Days Phenazopyridine [Pyridium] 200 mg PO TID PRN #5 tablet PRN Reason: Pain Referrals: Mario Mcdaniels DO [Primary Care Provider] - 1-2 days Time of Disposition: 19:29
[2017-05-19 17:25] LABS: Basophils % (A) 0 %; CH 33.4; CHCM 35.1; Eosinophils % (A) 0 %; HCT 38.7 % (34.0-46.0); HDW 2.55; HGB 13.6 gm/dL (11.4-16.0); Luc # (Auto) 0.16; Luc % (Auto) 2; Lymphocytes # (A) 1.7 k/uL (1.0-4.8); Lymphocytes % (A) 21 %; MCH 33.6 pg (25.0-35.0); MCHC 35.1 g/dL (31.0-37.0); MCV 95.5 fL (80.0-100.0); Mean Platelet Volume 6.9; Monocytes # (A) 0.6 k/uL (0-1.0); Monocytes % (A) 7 %; Neutrophils # (A) 5.8 k/uL (1.3-7.7); Neutrophils % (A) 70 %; RBC 4.05 m/uL (3.80-5.40); WBC 8.3 k/uL (3.8-10.6); WBC (Perox) 8.08
[2017-05-19 17:36] LABS: ALT 34 U/L (9-52); AST 19 U/L (14-36); Alkaline Phosphatase 94 U/L (38-126); Amylase 57 U/L (30-110); Anion Gap 13 mmol/L; Blood Urea Nitrogen 14 mg/dL (7-17); Calcium 10.1 mg/dL (8.4-10.2); Carbon Dioxide 20 mmol/L (22-30); Chloride 108 mmol/L (98-107); Glucose 96 mg/dL (74-99); Non-African American GFR(MDRD) >60 (>60 ml/min/1.73 sqM); Potassium 4.3 mmol/L (3.5-5.1); Sodium 141 mmol/L (137-145); Total Bilirubin 0.5 mg/dL (0.2-1.3); Total Protein 8.3 g/dL (6.3-8.2)
[2017-05-19 17:44] LABS: Appearance,Urine Turbid (Clear); Bacteria,Urine Rare /hpf; Bilirubin,Urine Negative (Negative); Glucose,Urine (UA) Negative (Negative); Ketones,Urine Negative (Negative); Leukocyte Esterase,Urine Large (Negative); Nitrite,Urine Negative (Negative); PH, Urine 5.5 (5.0-8.0); Particle Count 9648; Protein,Urine 1+ (Negative); RBC,Urine 28 /hpf (0-5); Specific Gravity,Urine 1.018 (1.001-1.035); Squamous Epithelial Cell,Urine 36 /hpf (0-4); UA Billing (MACRO vs. MICRO) MICRO; Urobilinogen,Urine <2.0 mg/dL (<2.0); WBC,Urine 56 /hpf (0-5)
[2017-05-19 17:47] LABS: Partial Thromboplastin Time 24.3 sec (22.0-30.0); Prothrombin Time 10.5 sec (9.0-12.0)
--- NOTE | 2017-05-19 19:12 | CT ---
EXAMINATION TYPE: CT abdomen pelvis wo con DATE OF EXAM: 01-05-17 COMPARISON: Departmental CTA protocol HISTORY: abdominal pain, N/V, pain is worse towards right side CT DLP: 273.6 mGycm Automated exposure control for dose reduction was used. TECHNIQUE: Helical acquisition of images was performed from the lung bases through the pelvis. FINDINGS: LUNG BASES: No significant abnormality is appreciated. LIVER/GB: No significant abnormality is appreciated. PANCREAS: No significant abnormality is seen. SPLEEN: No significant abnormality is seen. ADRENALS: No significant abnormality is seen. KIDNEYS: No significant abnormality is seen. FREE AIR: No free air is visualized RETROPERITONEAL ADENOPATHY: None visualized REPRODUCTIVE ORGANS: No significant abnormality is seen URINARY BLADDER: No significant abnormality is seen. PELVIC ADENOPATHY: None visualized. OSSEOUS STRUCTURES: No significant abnormality is seen. BOWEL: No significant abnormality is seen. VASCULATURE: Unremarkable seen. IMPRESSION: ACUTE PROCESS, CT WITHOUT CONTRAST.
[2017-05-19] MEDS ORDERED: PHENAZOPYRIDINE 200 MG TAB PO STA (19:38)
[2017-05-19 20:30] VITALS: BP 134/81; PULSE 96; RESP 18; TEMP 98
== END 2017-05-19 20:30 | disposition home or self-care (01) ==
LOC: EC 15:48
DX: N39.0 Urinary tract infection, site not specified (principal); R11.2 Nausea with vomiting, unspecified; F31.9 Bipolar disorder, unspecified; F41.9 Anxiety disorder, unspecified; F17.200 Nicotine dependence, unspecified, uncomplicated; Z87.19 Personal history of other diseases of the digestive system; Z90.49 Acquired absence of other specified parts of digestive tract; Z88.6 Allergy status to analgesic agent; Z91.018 Allergy to other foods; Z79.899 Other long term (current) drug therapy
CPT/HCPCS: 99284; 96365; 96375 ×2; 96376; 96361 ×3; 36415; 80053; 82150; 83605; 83690; 85025; 85610; 85730; 81001; 87040; 87086; 74176; J2405; J0696; J1170

== ENCOUNTER 2017-05-31 18:18 | Emergency (ER) | payer OTHER ==
[2017-05-31 18:42] VITALS: BP 120/72; PULSE 110; RESP 18; TEMP 99.5
--- NOTE | 2017-05-31 19:03 | XR ---
EXAMINATION TYPE: XR ankle complete RT DATE OF EXAM: 05/31/2017 COMPARISON: NONE HISTORY: Pain TECHNIQUE: Frontal, lateral and oblique images of the right ankle are obtained. COMPARISON: None. FINDINGS: There is no acute fracture/dislocation evident. The joint spaces appear within normal brady its. The overlying soft tissue appears unremarkable. IMPRESSION: There is no acute fracture or dislocation seen.
[2017-05-31] MEDS ORDERED: ACETAMINOPHEN TAB 500 MG TAB PO STA (19:21)
--- NOTE | 2017-05-31 19:23 | ED ---
General Adult HPI - General Chief complaint: Extremity Injury, Lower Stated complaint: stepped in hole, rt ankle injury Time Seen by Provider: 05/31/17 18:43 Source: patient, RN notes reviewed Mode of arrival: wheelchair Limitations: no limitations - History of Present Illness Initial comments: 51-year-old female presents emergency Department chief complaint of right ankle sprain. Patient states she stepped in a pothole today while walking her dog. Patient states she has pain on both sides of the ankle. Patient states she hit her head there is no other injuries from the incident. Patient denies any knee pain. Patient states that she was able to ambulate however she did have a limp. Patient was concerned due to her pain so she thought that she should be seen.Patient denies any recent fever, chills, shortness of breath, chest pain, back pain, abdominal pain, nausea vomiting, numbness or tingling, dysuria or hematuria, constipation or diarrhea, headaches or visual changes, or any other current symptoms. - Related Data Home Medications Medication Instructions Recorded Confirmed clonazePAM [KlonoPIN] 1 mg PO DAILY PRN 11/18/14 05/19/17 Amitriptyline HCl [Elavil] 50 mg PO HS 05/19/17 05/19/17 DULoxetine HCL [Cymbalta] 60 mg PO DAILY 05/19/17 05/19/17 traZODone HCL 50 mg PO HS 05/19/17 05/19/17 Previous Rx's Medication Instructions Recorded Phenazopyridine [Pyridium] 200 mg PO TID PRN #5 tablet 05/19/17 Sulfamethox-Tmp 800-160Mg [Bactrim 1 tab PO Q12HR 7 Days 05/19/17 DS 800-160 mg] Allergies Allergy/AdvReac Type Severity Reaction Status Date / Time ibuprofen [From Motrin] Allergy Rash/Hives Verified 05/31/17 18:42 strawberry Allergy Rash/Hives Verified 05/31/17 18:42 Review of Systems ROS Statement: Those systems with pertinent positive or pertinent negative responses have been documented in the HPI. ROS Other: All systems not noted in ROS Statement are negative. Past Medical History Past Medical History: GI Bleed Additional Past Medical History / Comment(s): DIVERTICULITIS.HERNIA, herniated discs,sciatica, History of Any Multi-Drug Resistant Organisms: None Reported Past Surgical History: Cholecystectomy, Hysterectomy Additional Past Surgical History / Comment(s): right ankle fracture Past Anesthesia/Blood Transfusion Reactions: No Reported Reaction Past Psychological History: Anxiety, Bipolar, Depression, Panic Disorder Smoking Status: Current every day smoker Past Alcohol Use History: None Reported Past Drug Use History: None Reported - Past Family History Mother Family Medical History: Deep Vein Thrombosis (DVT) Father Family Medical History: Cancer, Hypertension Additional Family Medical History / Comment(s): dad has bladder ca General Exam - General Exam Comments Initial Comments: General: The patient is awake and alert, in no distress, and does not appear acutely ill. Neck: The neck is supple, there is no tenderness. Cardiovascular: There is a regular rate and rhythm. No murmur, rub or gallop is appreciated. Respiratory: Lungs are clear to auscultation, respirations are non-labored, breath sounds are equal. No wheezes, stridor, rales, or rhonchi. Musculoskeletal: Sensation intact with 2+ pulses throughout the right lower extremity. Full range of motion of right knee and right ankle. Patient has tenderness both medial and lateral. Patient complains of pain to any movement of the foot. There is no swelling there is no ecchymosis. Neurological: CN II-XII intact, There are no obvious motor or sensory deficits. Coordination appears grossly intact. Speech is normal. Skin: Skin is warm and dry and no rashes or lesions are noted. Psychiatric: Normal mood and affect. Limitations: no limitations Course Vital Signs 05/31/17 18:39 Temperature 99.5 F Pulse Rate 110 H Respiratory 18 Rate Blood Pressure 120/72 O2 Sat by Pulse 98 Oximetry Medical Decision Making - Medical Decision Making 51-year-old female presents for right ankle sprain. This time x-rays are reviewed and negative. This time we discussed Tylenol for pain was discussed ice. We discussed return parameters and follow-up. Patient states that she understood and she is given plan. All questions have been answered. She'll be discharged. - Radiology Data Radiology results: report reviewed, image reviewed Disposition Clinical Impression: Right ankle sprain Disposition: HOME SELF-CARE Condition: Stable Instructions: Ankle Sprain (ED) Additional Instructions: Please use medication as discussed. Please follow up with family doctor if symptoms have not improved over the next two days. Please return to the emergency room if your symptoms increase or worsen or for any other concerns. Referrals: Mario Mcdaniels DO [Primary Care Provider] - 1-2 days Time of Disposition: 19:22
== END 2017-05-31 19:29 | disposition home or self-care (01) ==
LOC: EC 18:18
DX: S93.401A Sprain of unspecified ligament of right ankle, initial encounter (principal); F41.9 Anxiety disorder, unspecified; F31.9 Bipolar disorder, unspecified; F17.200 Nicotine dependence, unspecified, uncomplicated; Z88.6 Allergy status to analgesic agent; Z91.018 Allergy to other foods; Z79.899 Other long term (current) drug therapy; W18.42XA Slipping, tripping and stumbling without falling due to stepping into hole or opening, initial encounter; Y93.01 Activity, walking, marching and hiking
CPT/HCPCS: 99283

== ENCOUNTER → 2017-06-08 | Outpatient (CLI) | payer OTHER ==
--- NOTE | 2017-06-08 11:53 | FL ---
EXAMINATION TYPE: FL barium swallow DATE OF EXAM: 06/08/2017 CLINICAL HISTORY: Globus sensation. TECHNIQUE: A double contrast esophagram is performed utilizing air and barium. A total of 120 secon ds of fluoroscopic time was utilized during procedure. COMPARISON: CT abdomen pelvis dated 05/19/2017 FINDINGS: The esophagus shows normal motility and emptying into the stomach and the gravity dependent position. However, delayed propulsion is seen within the mid and distal esophagus with tertiary cont ractions in the gravity independent portion of the examination. No gastroesophageal reflux was seen w hen utilizing the Valsalva maneuver. No evidence of hiatal hernia or stricture noted. No diverticulum are noted. IMPRESSION: 1. Delayed propulsion and tertiary contractions within the mid and distal esophagus in the gravity in dependent portion of the examination. Normal motility is seen within the gravity dependent portion of the examination. 2. No evidence of hiatal hernia, obstructing mass, stricture, or diverticulum.
== END | disposition home or self-care (01) ==
LOC: RADFLWHC 10:32
PROVIDERS: ATTEND Family Medicine
DX: K22.8 Other specified diseases of esophagus (principal); R09.89 Other specified symptoms and signs involving the circulatory and respiratory systems
CPT/HCPCS: 74220

== ENCOUNTER 2017-06-25 17:52 | Emergency (ER) | payer OTHER ==
--- NOTE | 2017-06-25 18:33 | ED ---
General Adult HPI - General Chief complaint: Head Injury Stated complaint: HEADACHE X 7 DAYS Time Seen by Provider: 06/25/17 18:18 Source: patient, RN notes reviewed Mode of arrival: ambulatory Limitations: no limitations - History of Present Illness Initial comments: 50-year-old female presents to the emergency department with a chief complaint of head injury. Patient states week ago she was walking backwards while she was playing with her grandson she tripped and fell backwards and hit the back of her head. That time it did hurt she did not pass out he has had a headache that everything was okay she states that she is continuing to have this headache and she just having symptoms to suggest that she was concerned. Patient denies any memory impairment with this. Patient denies any neck pain. Patient denies any fever or chills. Patient states she just wanted to make sure that everything was okay with her head. Patient states she is not currently having any other symptoms at this time. Patient denies any recent fever, chills, shortness of breath, chest pain, back pain, abdominal pain, nausea vomiting, numbness or tingling, dysuria or hematuria, constipation or diarrhea, visual changes, or any other current symptoms. - Related Data Home Medications Medication Instructions Recorded Confirmed DULoxetine HCL [Cymbalta] 120 mg PO DAILY 05/19/17 06/25/17 Allergies Allergy/AdvReac Type Severity Reaction Status Date / Time ibuprofen [From Motrin] Allergy Rash/Hives Verified 06/25/17 18:21 strawberry Allergy Rash/Hives Verified 06/25/17 18:21 Review of Systems ROS Statement: Those systems with pertinent positive or pertinent negative responses have been documented in the HPI. ROS Other: All systems not noted in ROS Statement are negative. Past Medical History Past Medical History: GI Bleed Additional Past Medical History / Comment(s): DIVERTICULITIS.HERNIA, herniated discs,sciatica, History of Any Multi-Drug Resistant Organisms: None Reported Past Surgical History: Cholecystectomy, Hysterectomy Additional Past Surgical History / Comment(s): right ankle fracture Past Anesthesia/Blood Transfusion Reactions: No Reported Reaction Past Psychological History: Anxiety, Bipolar, Depression, Panic Disorder Smoking Status: Current every day smoker Past Alcohol Use History: None Reported Past Drug Use History: None Reported - Past Family History Mother Family Medical History: Deep Vein Thrombosis (DVT) Father Family Medical History: Cancer, Hypertension Additional Family Medical History / Comment(s): dad has bladder ca General Exam Limitations: no limitations General appearance: alert, in no apparent distress Head exam: Present: atraumatic, normocephalic, normal inspection Eye exam: Present: normal appearance, PERRL, EOMI. Absent: scleral icterus, conjunctival injection, periorbital swelling ENT exam: Present: normal exam, mucous membranes moist Neck exam: Present: normal inspection. Absent: tenderness, meningismus, lymphadenopathy Respiratory exam: Present: normal lung sounds bilaterally. Absent: respiratory distress, wheezes, rales, rhonchi, stridor Cardiovascular Exam: Present: regular rate, normal rhythm, normal heart sounds. Absent: systolic murmur, diastolic murmur, rubs, gallop, clicks Neurological exam: Present: alert, oriented X3, CN II-XII intact, normal gait, reflexes normal, other (no ataxia). Absent: motor sensory deficit Psychiatric exam: Present: normal affect, normal mood Skin exam: Present: warm, dry, intact, normal color. Absent: rash Course Vital Signs 06/25/17 18:13 Temperature 98.5 F Pulse Rate 105 H Respiratory 16 Rate Blood Pressure 131/72 O2 Sat by Pulse 99 Oximetry Medical Decision Making - Medical Decision Making 51-year-old female presents emergency Department chief complaint of head injury after a fall. It has been a week since the patient's head injury. This time we did do a CAT scan. At this time CAT scan is reviewed and does not show any acute process. This and we discussed patient most likely having residual concussion type effects. We did discuss treatment of this. We did discuss return parameters follow-up and all patient's questions. She stated that she understood and she is agreement with plan. She'll be discharged home. - Radiology Data Radiology results: report reviewed, image reviewed Disposition Clinical Impression: Concussion without loss of consciousness Disposition: HOME SELF-CARE Condition: Stable Instructions: Concussion (ED) Additional Instructions: Please use medication as discussed. Please follow up with family doctor if symptoms have not improved over the next two days. Please return to the emergency room if your symptoms increase or worsen or for any other concerns. Referrals: Mario Mcdaniels DO [Primary Care Provider] - 1-2 days Time of Disposition: 19:18
--- NOTE | 2017-06-25 18:50 | CT ---
EXAMINATION TYPE: CT brain kathie morgan con DATE OF EXAM: 06/25/2017 COMPARISON: 02/07/2016 HISTORY: Patient complains of headache and neck pain after falling backwards and hitting back of head . CT DLP: 981.4 mGycm Automated exposure control for dose reduction was used. TECHNIQUE: CT scan of the head and cervical spine are performed without contrast. FINDINGS: Ventricles of normal size. There is no mass effect nor midline shift. There is no sign of intracranial hemorrhage. The calvarium is intact. The cervical vertebra show normal spacing and alignment. Posterior elements are intact. Facet joints are intact. Skull base is intact. IMPRESSION: Negative CT scan of the brain. Negative CT scan of the cervical spine. No change.
[2017-06-25 19:47] VITALS: BP 133/75; PULSE 83; RESP 18; TEMP 98.4
== END 2017-06-25 19:45 | disposition home or self-care (01) ==
LOC: EC 17:52
DX: S06.0X0A Concussion without loss of consciousness, initial encounter (principal); F41.0 Panic disorder [episodic paroxysmal anxiety]; F31.9 Bipolar disorder, unspecified; F17.200 Nicotine dependence, unspecified, uncomplicated; Z79.899 Other long term (current) drug therapy; Z88.6 Allergy status to analgesic agent; Z91.018 Allergy to other foods; W01.10XA Fall on same level from slipping, tripping and stumbling with subsequent striking against unspecified object, initial encounter; Y93.01 Activity, walking, marching and hiking
CPT/HCPCS: 70450; 72125; 99283

== ENCOUNTER 2017-07-15 12:40 | Emergency (ER) | payer OTHER ==
[2017-07-15] MEDS ORDERED: SODIUM CHLORIDE 0.9% 1,000 ML IV ONE ×2 (13:13→15:08)
[2017-07-15 13:22] LABS: Basophils % (A) 0 %; CHCM 35.4; Eosinophils # (A) 0.1 k/uL (0-0.7); Eosinophils % (A) 1 %; HCT 41.4 % (34.0-46.0); HDW 2.64; HGB 14.5 gm/dL (11.4-16.0); Luc # (Auto) 0.07; Luc % (Auto) 1; Lymphocytes # (A) 1.4 k/uL (1.0-4.8); Lymphocytes % (A) 15 %; MCH 33.6 pg (25.0-35.0); MCV 96.2 fL (80.0-100.0); Mean Platelet Volume 6.8; Monocytes # (A) 0.3 k/uL (0-1.0); Monocytes % (A) 4 %; Neutrophils # (A) 7.2 k/uL (1.3-7.7); Neutrophils % (A) 80 %; RDW 12.5 % (11.5-15.5); WBC (Perox) 8.85
[2017-07-15] MEDS ORDERED: ONDANSETRON 4 MG/2 ML VIAL IVP STA (13:35)
[2017-07-15] MEDS ORDERED: HYDROmorphone 1 MG/ML 1 ML SYRINGE IVP STA (13:35)
--- NOTE | 2017-07-15 13:37 | ED ---
Nausea/Vomiting/Diarrhea HPI <Sky Piña - Last Filed: 07/15/17 15:33> - General Source: patient, RN notes reviewed Mode of arrival: ambulatory Limitations: no limitations <Lavinia Parker - Last Filed: 07/15/17 15:52> - General Chief complaint: Nausea/Vomiting/Diarrhea Stated complaint: Vomiting Time Seen by Provider: 07/15/17 13:12 - History of Present Illness Initial comments: Patient is a 51-year-old female presents to the emergency room for evaluation nausea, vomiting and diarrhea. Patient states symptoms began night. Patient states she has been having right-sided abdominal pain associated with vomiting and diarrhea. Patient states she's having diarrhea about every 30 minutes. Patient states she has not been able to take any of her medications due to vomiting. Patient states she has a history of diverticulitis. Patient states symptoms do not feel similar. Patient denies any blood in the stools. Patient states she has a history of cholecystectomy and hysterectomy. Patient states she had a mild fever last night. Patient denies headache, dizziness, chest pain, shortness of breath. Patient denies recent travels out of the country. Patient denies recent antibiotics. Patient denies any pain or burning during urination, trouble urinating or blood in urine. (Lavinia Parker) - Related Data Home Medications Medication Instructions Recorded Confirmed DULoxetine HCL [Cymbalta] 120 mg PO DAILY 05/19/17 07/15/17 LORazepam [Ativan] 1 mg PO DAILY PRN 07/15/17 07/15/17 traMADol HCL [Ultram] 50 mg PO Q6H PRN 07/15/17 07/15/17 Previous Rx's Medication Instructions Recorded Ciprofloxacin HCl [Cipro] 500 mg PO Q12HR 5 Days 07/15/17 Ondansetron Odt [Zofran Odt] 4 mg PO Q8HR PRN #12 tab 07/15/17 Allergies Allergy/AdvReac Type Severity Reaction Status Date / Time ibuprofen [From Motrin] Allergy Rash/Hives Verified 07/15/17 13:02 strawberry Allergy Rash/Hives Verified 07/15/17 13:02 Review of Systems ROS Other: All systems not noted in ROS Statement are negative. <Sky Piña - Last Filed: 07/15/17 15:33> ROS Other: All systems not noted in ROS Statement are negative. <Lavinia Parker - Last Filed: 07/15/17 15:52> ROS Statement: Those systems with pertinent positive or pertinent negative responses have been documented in the HPI. Past Medical History Past Medical History: GI Bleed Additional Past Medical History / Comment(s): DIVERTICULITIS.HERNIA, herniated discs,sciatica, History of Any Multi-Drug Resistant Organisms: None Reported Past Surgical History: Cholecystectomy, Hysterectomy Additional Past Surgical History / Comment(s): right ankle fracture Past Anesthesia/Blood Transfusion Reactions: No Reported Reaction Past Psychological History: Anxiety, Bipolar, Depression, Panic Disorder Smoking Status: Current every day smoker Past Alcohol Use History: None Reported Past Drug Use History: None Reported - Past Family History Mother Family Medical History: Deep Vein Thrombosis (DVT) Father Family Medical History: Cancer, Hypertension Additional Family Medical History / Comment(s): dad has bladder ca <Lavinia Parker - Last Filed: 07/15/17 15:52> General Exam <Sky Piña - Last Filed: 07/15/17 15:33> Limitations: no limitations General appearance: alert, in no apparent distress Head exam: Present: atraumatic, normocephalic, normal inspection Eye exam: Present: normal appearance ENT exam: Present: normal exam Neck exam: Present: normal inspection Respiratory exam: Present: normal lung sounds bilaterally. Absent: respiratory distress Cardiovascular Exam: Present: regular rate, normal rhythm, normal heart sounds GI/Abdominal exam: Present: soft, tenderness (Right upper quadrant, right lower quadrant), normal bowel sounds. Absent: distended, guarding, rebound, rigid Extremities exam: Present: normal inspection Back exam: Present: normal inspection Neurological exam: Present: alert, oriented X3, CN II-XII intact, normal gait Psychiatric exam: Present: normal affect, normal mood Skin exam: Present: warm, dry, intact, normal color. Absent: rash <Lavinia Parker - Last Filed: 07/15/17 15:52> - General Exam Comments Initial Comments: Laying in exam room, no acute distress. (Lavinia Parker) Medical Decision Making - Lab Data Result diagrams: 07/15/17 13:08 07/15/17 13:08 <Sky Piña - Last Filed: 07/15/17 15:33> - Lab Data Result diagrams: 07/15/17 13:08 07/15/17 13:08 <KeithLavinia Tracy - Last Filed: 07/15/17 15:52> - Medical Decision Making Medical decision-making. The patient has recurrent abdominal discomfort she has had diverticulitis in the past. White count is 9. She reports she been having discomfort approximately 36 hours. She is nauseated when she eats he is having bowel movements. She has not had any antibiotics recently. No blood in the stool. Examination finds the stomach to be benign active bowel sounds no organomegaly no rebound or referred pain. CAT scan was negative. We discussed travelers diarrhea, bad food. Diverticulitis, colitis [id number] bowel syndrome. The patient was placed on Cipro 500 twice a day for 5 days with Zofran 4 mg ODT and a follow-up with family physician. She was advised to return emergency room as needed. Dr. Piña (Sky Piña) - Lab Data Lab Results 07/15/17 07/15/17 07/15/17 Range/Units 13:08 13:08 13:08 WBC 9.0 (3.8-10.6) k/uL RBC 4.30 (3.80-5.40) m/uL Hgb 14.5 (11.4-16.0) gm/dL Hct 41.4 (34.0-46.0) % MCV 96.2 (80.0-100.0) fL MCH 33.6 (25.0-35.0) pg MCHC 35.0 (31.0-37.0) g/dL RDW 12.5 (11.5-15.5) % Plt Count 461 H (150-450) k/uL Neutrophils % 80 % Lymphocytes % 15 % Monocytes % 4 % Eosinophils % 1 % Basophils % 0 % Neutrophils # 7.2 (1.3-7.7) k/uL Lymphocytes # 1.4 (1.0-4.8) k/uL Monocytes # 0.3 (0-1.0) k/uL Eosinophils # 0.1 (0-0.7) k/uL Basophils # 0.0 (0-0.2) k/uL Sodium 140 (137-145) mmol/L Potassium 4.4 (3.5-5.1) mmol/L Chloride 107 (98-107) mmol/L Carbon Dioxide 21 L (22-30) mmol/L Anion Gap 12 mmol/L BUN 13 (7-17) mg/dL Creatinine 0.76 (0.52-1.04) mg/dL Est GFR (MDRD) Af Amer >60 (>60 ml/min/1.73 sqM) Est GFR (MDRD) Non-Af >60 (>60 ml/min/1.73 sqM) Glucose 107 H (74-99) mg/dL Calcium 10.0 (8.4-10.2) mg/dL Magnesium 1.8 (1.6-2.3) mg/dL Total Bilirubin 0.6 (0.2-1.3) mg/dL AST 25 (14-36) U/L ALT 47 (9-52) U/L Alkaline Phosphatase 104 (38-126) U/L Total Protein 8.3 H (6.3-8.2) g/dL Albumin 4.8 (3.5-5.0) g/dL Amylase 43 (30-110) U/L Lipase 45 (23-300) U/L Urine Color Urine Appearance (Clear) Urine pH (5.0-8.0) Ur Specific [place] (1.001-1.035) Urine Protein (Negative) Urine Glucose (UA) (Negative) Urine Ketones (Negative) Urine Blood (Negative) Urine Nitrite (Negative) Urine Bilirubin (Negative) Urine Urobilinogen (<2.0) mg/dL Ur Leukocyte Esterase (Negative) Urine RBC (0-5) /hpf Urine WBC (0-5) /hpf Ur Squamous Epith Cells (0-4) /hpf Urine Mucus (None) /hpf Urine HCG, Qual (Not Detectd) 07/15/17 07/15/17 Range/Units 13:26 13:26 WBC (3.8-10.6) k/uL RBC (3.80-5.40) m/uL Hgb (11.4-16.0) gm/dL Hct (34.0-46.0) % MCV (80.0-100.0) fL MCH (25.0-35.0) pg MCHC (31.0-37.0) g/dL RDW (11.5-15.5) % Plt Count (150-450) k/uL Neutrophils % % Lymphocytes % % Monocytes % % Eosinophils % % Basophils % % Neutrophils # (1.3-7.7) k/uL Lymphocytes # (1.0-4.8) k/uL Monocytes # (0-1.0) k/uL Eosinophils # (0-0.7) k/uL Basophils # (0-0.2) k/uL Sodium (137-145) mmol/L Potassium (3.5-5.1) mmol/L Chloride (98-107) mmol/L Carbon Dioxide (22-30) mmol/L Anion Gap mmol/L BUN (7-17) mg/dL Creatinine (0.52-1.04) mg/dL Est GFR (MDRD) Af Amer (>60 ml/min/1.73 sqM) Est GFR (MDRD) Non-Af (>60 ml/min/1.73 sqM) Glucose (74-99) mg/dL Calcium (8.4-10.2) mg/dL Magnesium (1.6-2.3) mg/dL Total Bilirubin (0.2-1.3) mg/dL AST (14-36) U/L ALT (9-52) U/L Alkaline Phosphatase (38-126) U/L Total Protein (6.3-8.2) g/dL Albumin (3.5-5.0) g/dL Amylase (30-110) U/L Lipase (23-300) U/L Urine Color Yellow Urine Appearance Cloudy H (Clear) Urine pH 6.0 (5.0-8.0) Ur Specific [place] 1.021 (1.001-1.035) Urine Protein Trace H (Negative) Urine Glucose (UA) Negative (Negative) Urine Ketones 3+ H (Negative) Urine Blood Trace H (Negative) Urine Nitrite Negative (Negative) Urine Bilirubin Negative (Negative) Urine Urobilinogen <2.0 (<2.0) mg/dL Ur Leukocyte Esterase Small H (Negative) Urine RBC 2 (0-5) /hpf Urine WBC 5 (0-5) /hpf Ur Squamous Epith Cells 8 H (0-4) /hpf Urine Mucus Occasional H (None) /hpf Urine HCG, Qual Not Detected (Not Detectd) Disposition <Sky Piña - Last Filed: 07/15/17 15:33> Time of Disposition: 15:39 <Lavinia Parker - Last Filed: 07/15/17 15:52> Clinical Impression: Abdominal pain, Nausea, vomiting and diarrhea Disposition: HOME SELF-CARE Condition: Good Instructions: Gastroenteritis (ED) Additional Instructions: Take Zofran as needed for nausea. Take antibiotics as directed. Drink plenty of fluids. Clear liquid diet for the next 1-2 days, gradually progress to soft food diet. Please follow up with primary care provider in 1-2 days. If any new symptom arises or symptoms worsen, return to ER as soon as possible. Prescriptions: Ondansetron Odt [Zofran Odt] 4 mg PO Q8HR PRN #12 tab PRN Reason: Nausea Ciprofloxacin HCl [Cipro] 500 mg PO Q12HR 5 Days Referrals: Mario Mcdaniels DO [Primary Care Provider] - 1-2 days
[2017-07-15 13:40] LABS: ALT 47 U/L (9-52); AST 25 U/L (14-36); Alkaline Phosphatase 104 U/L (38-126); Amylase 43 U/L (30-110); Anion Gap 12 mmol/L; Blood Urea Nitrogen 13 mg/dL (7-17); Carbon Dioxide 21 mmol/L (22-30); Chloride 107 mmol/L (98-107); Glucose 107 mg/dL (74-99); Magnesium 1.8 mg/dL (1.6-2.3); Non-African American GFR(MDRD) >60 (>60 ml/min/1.73 sqM); Potassium 4.4 mmol/L (3.5-5.1); Sodium 140 mmol/L (137-145); Total Bilirubin 0.6 mg/dL (0.2-1.3); Total Protein 8.3 g/dL (6.3-8.2)
[2017-07-15 13:43] LABS: Appearance,Urine Cloudy (Clear); Bilirubin,Urine Negative (Negative); Glucose,Urine (UA) Negative (Negative); Ketones,Urine 3+ (Negative); Leukocyte Esterase,Urine Small (Negative); Mucus,Urine Occasional /hpf; Nitrite,Urine Negative (Negative); Particle Count 5049; Protein,Urine Trace (Negative); RBC,Urine 2 /hpf (0-5); Specific Gravity,Urine 1.021 (1.001-1.035); Squamous Epithelial Cell,Urine 8 /hpf (0-4); UA Billing (MACRO vs. MICRO) MICRO; Urobilinogen,Urine <2.0 mg/dL (<2.0); WBC,Urine 5 /hpf (0-5)
[2017-07-15 14:03] VITALS: RESP 18
[2017-07-15] MEDS ORDERED: RX INFO: IV CONTRAST WAS GIVEN 1 EACH MISC MISCELLANE PRN (14:16)
--- NOTE | 2017-07-15 15:24 | CT ---
EXAMINATION TYPE: CT abdomen pelvis w con DATE OF EXAM: 07/15/2017 COMPARISON: Previous exam 05/19/2017 HISTORY: Vomiting CT DLP: 409.4 mGycm Automated exposure control for dose reduction was used. TECHNIQUE: Helical acquisition of images from the lung bases through the pelvis have been completed. CONTRAST: Performed without Oral Contrast and with IV Contrast, patient injected with 100 mL of Omnipaque 300. FINDINGS: LUNG BASES: No significant abnormality is appreciated. AORTA: No significant abnormality is appreciated. LIVER/GB: Gallbladder is absent. Liver shows some mildly dilated intrahepatic biliary ducts, small cy stic focus present within the right lobe as on prior exam adjacent to the inferior vena cava measures only approximately 1 cm. Prominence of the bile ducts is likely due to postcholecystectomy change. PANCREAS: No significant abnormality is seen. SPLEEN: No significant abnormality is seen. ADRENALS: No significant abnormality is seen. KIDNEYS: No significant abnormality is seen. REPRODUCTIVE ORGANS: Absent BOWEL: Extensive diverticular changes are present within the sigmoid colon some of these are calcifi ed, calcified diverticulum also present within the distribution of the remainder of the colon. The ap pendix is normal. No evident bowel obstruction. There are nonspecific loops of small bowel with lumin al fluid present, some bowel wall thickening. FREE AIR: No Free Air visible. ASCITES: None visible. PELVIC ADENOPATHY: None visualized. RETROPERITONEAL ADENOPATHY: No Retroperitoneal Adenopathy visible. URINARY BLADDER: No significant abnormality is seen. OSSEOUS STRUCTURES: Able IMPRESSION: DIVERTICULOSIS. CORRELATE FOR POSSIBLE ENTERITIS. POSTOP CHANGES.
[2017-07-15 15:59] VITALS: BP 118/78; PULSE 89; TEMP 98.8
== END 2017-07-15 15:55 | disposition home or self-care (01) ==
LOC: EC 12:40
DX: R11.2 Nausea with vomiting, unspecified (principal); R19.7 Diarrhea, unspecified; R10.11 Right upper quadrant pain; R10.31 Right lower quadrant pain; F32.9 Major depressive disorder, single episode, unspecified; F41.9 Anxiety disorder, unspecified; K57.30 Diverticulosis of large intestine without perforation or abscess without bleeding; F17.200 Nicotine dependence, unspecified, uncomplicated; Z90.49 Acquired absence of other specified parts of digestive tract; Z88.6 Allergy status to analgesic agent; Z91.018 Allergy to other foods; Z79.899 Other long term (current) drug therapy
CPT/HCPCS: 99284; 96374; 96375; 96361 ×3; 36415; 80053; 82150; 83690; 83735; 85025; 81001; 81025; 87086; 74177; J2405; J1170; Q9967

== ENCOUNTER 2017-07-26 19:53 | Emergency (ER) | payer OTHER ==
[2017-07-26 20:45] VITALS: BP 156/71; PULSE 101; RESP 20; TEMP 98
[2017-07-26] MEDS ORDERED: ORPHENADRINE 30 MG/ML 2 ML VIAL IM STA (21:08)
--- NOTE | 2017-07-26 21:11 | ED ---
Back Pain HPI - General Chief Complaint: Back Pain/Injury Stated Complaint: Back Pain Time Seen by Provider: 07/26/17 21:08 Source: patient, RN notes reviewed Mode of arrival: ambulatory Limitations: no limitations - History of Present Illness Initial Comments: This a 51-year-old female presents emergency department to complaint of right low back pain. Patient states she was going down some steps and states that she slipped twisting her back. Patient states her significant other called her so. She states she nourished ROM. Patient states she feels that she's having spasms of her right low back. She denies any bowel, bladder incontinence or retention. Denies any saddle anesthesias or lower extremity paresthesias. She states the pain is nonradiating. The pain is worse with with rest and she has not taken any medications prior arrival. - Related Data Home Medications Medication Instructions Recorded Confirmed DULoxetine HCL [Cymbalta] 120 mg PO DAILY 05/19/17 07/15/17 LORazepam [Ativan] 1 mg PO DAILY PRN 07/15/17 07/15/17 traMADol HCL [Ultram] 50 mg PO Q6H PRN 07/15/17 07/15/17 Previous Rx's Medication Instructions Recorded Ciprofloxacin HCl [Cipro] 500 mg PO Q12HR 5 Days 07/15/17 Ondansetron Odt [Zofran Odt] 4 mg PO Q8HR PRN #12 tab 07/15/17 Acetaminophen-Codeine 300-30mg 1 tab PO Q4H PRN #10 tablet 07/26/17 [Tylenol #3] Cyclobenzaprine [Flexeril] 10 mg PO TID PRN #15 tab 07/26/17 Allergies Allergy/AdvReac Type Severity Reaction Status Date / Time ibuprofen [From Motrin] Allergy Rash/Hives Verified 07/26/17 20:45 strawberry Allergy Rash/Hives Verified 07/26/17 20:45 Review of Systems ROS Statement: Those systems with pertinent positive or pertinent negative responses have been documented in the HPI. ROS Other: All systems not noted in ROS Statement are negative. Past Medical History Past Medical History: GI Bleed Additional Past Medical History / Comment(s): DIVERTICULITIS.HERNIA, herniated discs,sciatica, History of Any Multi-Drug Resistant Organisms: None Reported Past Surgical History: Cholecystectomy, Hysterectomy Additional Past Surgical History / Comment(s): right ankle fracture Past Anesthesia/Blood Transfusion Reactions: No Reported Reaction Past Psychological History: Anxiety, Bipolar, Depression, Panic Disorder Smoking Status: Current every day smoker Past Alcohol Use History: None Reported Past Drug Use History: None Reported - Past Family History Mother Family Medical History: Deep Vein Thrombosis (DVT) Father Family Medical History: Cancer, Hypertension Additional Family Medical History / Comment(s): dad has bladder ca General Exam Limitations: no limitations General appearance: alert, in no apparent distress Neck exam: Present: normal inspection, full ROM. Absent: tenderness, meningismus, lymphadenopathy Respiratory exam: Present: normal lung sounds bilaterally. Absent: respiratory distress, wheezes, rales, rhonchi, stridor Cardiovascular Exam: Present: regular rate, normal rhythm, normal heart sounds. Absent: systolic murmur, diastolic murmur, rubs, gallop, clicks GI/Abdominal exam: Present: soft, normal bowel sounds. Absent: distended, tenderness, guarding, rebound, rigid Extremities exam: Present: normal inspection, full ROM, normal capillary refill. Absent: tenderness, pedal edema, joint swelling, calf tenderness Back exam: Present: full ROM, tenderness (Mild tenderness right lumbar region), paraspinal tenderness, other (Pain with SLR right). Absent: muscle spasm, vertebral tenderness Course Vital Signs 07/26/17 20:44 Temperature 98.0 F Pulse Rate 101 H Respiratory 20 Rate Blood Pressure 156/71 O2 Sat by Pulse 99 Oximetry Medical Decision Making - Medical Decision Making 51-year-old female presented for low back pain. Patient is a lumbar strain. Patient will be given Flexeril and tramadol. Return parameters were discussed. Disposition Clinical Impression: Strain of lumbar region Disposition: HOME SELF-CARE Condition: Stable Instructions: Acute Low Back Pain (ED) Additional Instructions: Please return to the Emergency Department if symptoms worsen or any other concerns. Prescriptions: Acetaminophen-Codeine 300-30mg [Tylenol #3] 1 tab PO Q4H PRN #10 tablet PRN Reason: pain Cyclobenzaprine [Flexeril] 10 mg PO TID PRN #15 tab PRN Reason: Muscle Spasm Referrals: Mario Mcdaniels DO [Primary Care Provider] - 1-2 days Time of Disposition: 21:11
== END 2017-07-26 21:19 | disposition home or self-care (01) ==
LOC: EC 19:53
DX: S39.012A Strain of muscle, fascia and tendon of lower back, initial encounter (principal); F31.9 Bipolar disorder, unspecified; F41.9 Anxiety disorder, unspecified; F17.200 Nicotine dependence, unspecified, uncomplicated; Z88.6 Allergy status to analgesic agent; Z91.018 Allergy to other foods; Z79.899 Other long term (current) drug therapy; X50.1XXA Overexertion from prolonged static or awkward postures, initial encounter
CPT/HCPCS: 99283; 96372; J2360

== ENCOUNTER 2017-08-15 16:17 | Emergency (ER) | payer OTHER ==
[2017-08-15 16:37] VITALS: TEMP 98.2
[2017-08-15] MEDS ORDERED: SODIUM CHLORIDE 0.9% 1,000 ML IV STA (16:48)
[2017-08-15] MEDS ORDERED: MORPHINE SULFATE 2 MG/ML SYRINGE IVP STA (16:48)
[2017-08-15] MEDS ORDERED: ONDANSETRON 4 MG/2 ML VIAL IVP STA (16:50)
[2017-08-15 17:33] LABS: Basophils % (A) 0 %; CH 33.9; CHCM 34.2; Eosinophils # (A) 0.1 k/uL (0-0.7); Eosinophils % (A) 1 %; HCT 38.7 % (34.0-46.0); HDW 2.48; HGB 13.2 gm/dL (11.4-16.0); Luc # (Auto) 0.17; Luc % (Auto) 3; Lymphocytes # (A) 2.4 k/uL (1.0-4.8); Lymphocytes % (A) 39 %; MCH 34.1 pg (25.0-35.0); MCHC 34.2 g/dL (31.0-37.0); MCV 99.6 fL (80.0-100.0); Mean Platelet Volume 6.6; Monocytes # (A) 0.5 k/uL (0-1.0); Monocytes % (A) 8 %; Neutrophils % (A) 49 %; RBC 3.89 m/uL (3.80-5.40); RDW 13.2 % (11.5-15.5); WBC 6.1 k/uL (3.8-10.6); WBC (Perox) 6.22
[2017-08-15 17:46] LABS: Anion Gap 10 mmol/L; Blood Urea Nitrogen 10 mg/dL (7-17); Calcium 9.8 mg/dL (8.4-10.2); Carbon Dioxide 22 mmol/L (22-30); Chloride 108 mmol/L (98-107); Glucose 82 mg/dL (74-99); Non-African American GFR(MDRD) >60 (>60 ml/min/1.73 sqM); Sodium 140 mmol/L (137-145)
[2017-08-15 17:50] LABS: Appearance,Urine Cloudy (Clear); Bacteria,Urine Rare /hpf; Bilirubin,Urine Negative (Negative); Glucose,Urine (UA) Negative (Negative); Ketones,Urine Negative (Negative); Leukocyte Esterase,Urine Small (Negative); Nitrite,Urine Negative (Negative); PH, Urine 7.5 (5.0-8.0); Particle Count 3812; Protein,Urine Negative (Negative); Specific Gravity,Urine 1.007 (1.001-1.035); Squamous Epithelial Cell,Urine 4 /hpf (0-4); UA Billing (MACRO vs. MICRO) MICRO; Urobilinogen,Urine <2.0 mg/dL (<2.0); WBC,Urine 6 /hpf (0-5)
--- NOTE | 2017-08-15 18:04 | CT ---
EXAMINATION TYPE: CT abdomen pelvis wo con DATE OF EXAM: 08/15/2017 COMPARISON: 07/15/2017 HISTORY: Abdominal pain CT DLP: mGycm Automated exposure control for dose reduction was used. TECHNIQUE: Helical acquisition of images was performed from the lung bases through the pelvis. FINDINGS: Lung bases are clear. There is no pleural effusion. Heart size is normal. Liver shows no focal defect. Bile ducts are not dilated. There are clips from cholecystectomy. Spleen and pancreas appear normal. There is no adrenal mass. Kidneys have normal size and contour. There is no hydronephrosis. There is no retroperitoneal adenopathy. There are numerous colonic diverticula. Appendix appears normal. There is no sign of a bowel obstruction. There is no free air. There is no ascites. Bladder distends rachid hly. There is some mildly distended fluid-filled loops of small bowel up to 2.7 cm. I see no bony desiree tructive process. IMPRESSION: DISTENDED SMALL BOWEL CONSISTENT WITH MILD ILEUS. EXTENSIVE COLONIC DIVERTICULOSIS. NO SIGN OF DIVERT ICULITIS. NORMAL APPENDIX. THERE IS MORE SMALL BOWEL DISTENTION COMPARED TO OLD EXAM.
--- NOTE | 2017-08-15 18:35 | ED ---
Abdominal Pain HPI - General Chief Complaint: Abdominal Pain Stated Complaint: Diverticulitis Hx Time Seen by Provider: 08/15/17 16:39 Source: patient Mode of arrival: ambulatory Limitations: no limitations - History of Present Illness Initial Comments: Patient presents with right-sided abdominal pain, nausea, vomiting, diarrhea. Patient states symptoms started this afternoon after she ate 3 cucumbers. Patient has a history of multiple ER visits for right lower quadrant pain, with a history of diverticulitis. Patient denies fevers, chills. Patient denies blood in her vomit or stools. Denies changes in urination, vaginal bleeding or discharge. She states she was healthy and asymptomatic prior to episode this afternoon. Patient denies history of renal stones. Patient states she's had a total hysterectomy in the past, gallbladder removed. States she still has her appendix. - Related Data Home Medications Medication Instructions Recorded Confirmed DULoxetine HCL [Cymbalta] 120 mg PO DAILY 05/19/17 08/15/17 clonazePAM [KlonoPIN] 1 mg PO DAILY PRN 08/15/17 08/15/17 Previous Rx's Medication Instructions Recorded Acetaminophen Tab [Tylenol Tab] 650 mg PO Q4H PRN #60 tablet 08/15/17 Ondansetron Odt [Zofran Odt] 4 mg PO Q8HR PRN #15 tab 08/15/17 Allergies Allergy/AdvReac Type Severity Reaction Status Date / Time ibuprofen [From Motrin] Allergy Rash/Hives Verified 08/15/17 17:38 strawberry Allergy Rash/Hives Verified 08/15/17 17:38 Review of Systems ROS Statement: Those systems with pertinent positive or pertinent negative responses have been documented in the HPI. Constitutional: Denies: fever, chills, weakness Eyes: Denies: vision change ENT: Denies: throat pain, congestion Respiratory: Denies: cough, dyspnea Cardiovascular: Denies: chest pain, palpitations Endocrine: Denies: fatigue Gastrointestinal: Reports: abdominal pain, nausea, vomiting, diarrhea. Denies: constipation, hematemesis, melena, hematochezia Genitourinary: Denies: urgency, dysuria, frequency, hematuria Musculoskeletal: Denies: back pain Skin: Denies: rash Neurological: Denies: headache, weakness, numbness, confusion Past Medical History Past Medical History: GI Bleed Additional Past Medical History / Comment(s): DIVERTICULITIS.HERNIA, herniated discs,sciatica, History of Any Multi-Drug Resistant Organisms: None Reported Past Surgical History: Cholecystectomy, Hysterectomy Additional Past Surgical History / Comment(s): right ankle fracture Past Anesthesia/Blood Transfusion Reactions: No Reported Reaction Past Psychological History: Anxiety, Bipolar, Depression, Panic Disorder Smoking Status: Current every day smoker Past Alcohol Use History: None Reported Past Drug Use History: None Reported - Past Family History Mother Family Medical History: Deep Vein Thrombosis (DVT) Father Family Medical History: Cancer, Hypertension Additional Family Medical History / Comment(s): dad has bladder ca General Exam - General Exam Comments Initial Comments: Patient laying on bed, tearful, holding right lower quadrant. Does not appear nauseous. Limitations: no limitations General appearance: alert, in distress Head exam: Present: atraumatic, normocephalic Eye exam: Present: PERRL, EOMI ENT exam: Present: mucous membranes moist, normal external ear exam Neck exam: Present: normal inspection Respiratory exam: Present: normal lung sounds bilaterally. Absent: respiratory distress, wheezes, rales, rhonchi Cardiovascular Exam: Present: regular rate, normal rhythm GI/Abdominal exam: Present: soft, tenderness, normal bowel sounds, other (Mild tenderness right lower quadrant.). Absent: distended, guarding, rebound, rigid Neurological exam: Present: alert, oriented X3. Absent: altered Skin exam: Present: warm, dry, intact, normal color. Absent: rash Course Vital Signs 08/15/17 08/15/17 16:35 18:42 Temperature 98.2 F 98.2 F Pulse Rate 114 H 74 Respiratory 20 18 Rate Blood Pressure 133/84 124/70 O2 Sat by Pulse 100 98 Oximetry Medical Decision Making - Medical Decision Making IV fluids morphine and Zofran given. No significant abnormalities on lab work. CT of the abdomen shows increased small bowel dilation, likely mild ileus. Patient updated with all results, discussed ileus management options. Patient feels comfortable going home on clear liquid diet. Strict clear liquid diet until symptoms resolve. Instructions for clear liquid diet provided. We'll give Tylenol for pain. Avoid Bentyl and narcotics as it may worsen ileus. Patient has ALLERGIES to NSAIDs. We'll give prescription Zofran. Patient to return to ED immediately if not tolerating oral intake. Patient then would required admission hospital for IV hydration and nothing by mouth status. Patient understands and agrees. Feels comfortable with being discharged home and managing as an outpatient. Patient to follow up with primary care physician. Return to ED if new or worsening symptoms. - Lab Data Result diagrams: 08/15/17 17:20 08/15/17 17:20 Lab Results 08/15/17 08/15/17 08/15/17 Range/Units 17:20 17:20 17:41 WBC 6.1 (3.8-10.6) k/uL RBC 3.89 (3.80-5.40) m/uL Hgb 13.2 (11.4-16.0) gm/dL Hct 38.7 (34.0-46.0) % MCV 99.6 (80.0-100.0) fL MCH 34.1 (25.0-35.0) pg MCHC 34.2 (31.0-37.0) g/dL RDW 13.2 (11.5-15.5) % Plt Count 383 (150-450) k/uL Neutrophils % 49 % Lymphocytes % 39 % Monocytes % 8 % Eosinophils % 1 % Basophils % 0 % Neutrophils # 3.0 (1.3-7.7) k/uL Lymphocytes # 2.4 (1.0-4.8) k/uL Monocytes # 0.5 (0-1.0) k/uL Eosinophils # 0.1 (0-0.7) k/uL Basophils # 0.0 (0-0.2) k/uL Sodium 140 (137-145) mmol/L Potassium 4.0 (3.5-5.1) mmol/L Chloride 108 H (98-107) mmol/L Carbon Dioxide 22 (22-30) mmol/L Anion Gap 10 mmol/L BUN 10 (7-17) mg/dL Creatinine 0.81 (0.52-1.04) mg/dL Est GFR (MDRD) Af Amer >60 (>60 ml/min/1.73 sqM) Est GFR (MDRD) Non-Af >60 (>60 ml/min/1.73 sqM) Glucose 82 (74-99) mg/dL Calcium 9.8 (8.4-10.2) mg/dL Urine Color Light Yellow Urine Appearance Cloudy H (Clear) Urine pH 7.5 (5.0-8.0) Ur Specific [place] 1.007 (1.001-1.035) Urine Protein Negative (Negative) Urine Glucose (UA) Negative (Negative) Urine Ketones Negative (Negative) Urine Blood Negative (Negative) Urine Nitrite Negative (Negative) Urine Bilirubin Negative (Negative) Urine Urobilinogen <2.0 (<2.0) mg/dL Ur Leukocyte Esterase Small H (Negative) Urine WBC 6 H (0-5) /hpf Ur Squamous Epith Cells 4 (0-4) /hpf Urine Bacteria Rare H (None) /hpf Disposition Clinical Impression: Ileus Disposition: HOME SELF-CARE Condition: Good Instructions: Clear Liquid Diet (ED), Ileus (ED) Additional Instructions: Strict clear liquid diet until symptoms resolve. Make appointment her primary care physician later this week for reevaluation. Return to ER immediately if pain increases or your unable to tolerate liquid intake. Prescriptions: Acetaminophen Tab [Tylenol Tab] 650 mg PO Q4H PRN #60 tablet PRN Reason: Pain Ondansetron Odt [Zofran Odt] 4 mg PO Q8HR PRN #15 tab PRN Reason: Nausea Referrals: Mario Mcdaniels DO [Primary Care Provider] - 1-2 days
[2017-08-15 18:43] VITALS: BP 124/70; PULSE 74; RESP 18
== END 2017-08-15 18:43 | disposition home or self-care (01) ==
LOC: EC 16:17
DX: K56.7 Ileus, unspecified (principal); R19.7 Diarrhea, unspecified; F31.9 Bipolar disorder, unspecified; F41.0 Panic disorder [episodic paroxysmal anxiety]; F17.200 Nicotine dependence, unspecified, uncomplicated; Z87.19 Personal history of other diseases of the digestive system; Z79.899 Other long term (current) drug therapy; Z88.6 Allergy status to analgesic agent; Z91.018 Allergy to other foods; Z90.49 Acquired absence of other specified parts of digestive tract; Z90.710 Acquired absence of both cervix and uterus
CPT/HCPCS: 99284 ×2; 96374 ×2; 96375 ×2; 96361 ×2; 36415; 80048; 85025; 81001; 74176; J2405; J2270

== ENCOUNTER 2017-08-16 23:26 | Observation (INO) | payer OTHER ==
[2017-08-16] MEDS ORDERED: DICYCLOMINE 20 MG TAB PO STA (23:38)
[2017-08-16] MEDS ORDERED: KETOROLAC 30 MG/ML 1 ML VIAL IVP STA (23:38)
[2017-08-16] MEDS ORDERED: RX INFO: IV CONTRAST WAS GIVEN 1 EACH MISC MISCELLANE PRN (23:38)
[2017-08-16] MEDS ORDERED: diphenhydrAMINE 50 MG/ML 1 ML VIAL IVP STA (23:38)
[2017-08-16] MEDS ORDERED: ONDANSETRON 4 MG/2 ML VIAL IVP STA (23:41)
--- NOTE | 2017-08-17 00:14 | ED ---
Abdominal Pain HPI - General Chief Complaint: Abdominal Pain Stated Complaint: Abd Pain Time Seen by Provider: 08/16/17 23:34 Source: patient, family Mode of arrival: ambulatory Limitations: no limitations - History of Present Illness Initial Comments: The patient is a 51-year-old female who presents with a chief complaint lower abdominal pain. Patient states at the onset of her pain was about 10:00 tonight. She states it is a sharp pain in her lower abdomen. She cannot identify an inciting incident. She does not identify any aggravating or alleviating factors. Patient stated that she had a bowel movement today. No further review of the patient's records, she was seen here yesterday and had a full workup including a computed tomography scan of the abdomen and pelvis with contrast which showed a possible ileus as she had dilated loops of small bowel. Given the fact the patient had a bowel movement today ileus is unlikely. Patient states that she has never seen a medical oncology physician, and that she has never had a colonoscopy. Patient states that she has had abdominal pain for a long time. - Related Data Home Medications Medication Instructions Recorded Confirmed DULoxetine HCL [Cymbalta] 120 mg PO DAILY 05/19/17 08/16/17 clonazePAM [KlonoPIN] 1 mg PO DAILY PRN 08/15/17 08/16/17 Previous Rx's Medication Instructions Recorded Acetaminophen Tab [Tylenol Tab] 650 mg PO Q4H PRN #60 tablet 08/15/17 Ondansetron Odt [Zofran Odt] 4 mg PO Q8HR PRN #15 tab 08/15/17 Allergies Allergy/AdvReac Type Severity Reaction Status Date / Time ibuprofen [From Motrin] Allergy Rash/Hives Verified 08/16/17 23:30 strawberry Allergy Rash/Hives Verified 08/16/17 23:30 Review of Systems ROS Statement: Those systems with pertinent positive or pertinent negative responses have been documented in the HPI. ROS Other: All systems not noted in ROS Statement are negative. Constitutional: Reports: chills. Denies: fever Eyes: Denies: vision change ENT: Denies: congestion Respiratory: Denies: cough Cardiovascular: Denies: chest pain Endocrine: Denies: fatigue Gastrointestinal: Reports: abdominal pain, nausea, vomiting Genitourinary: Denies: dysuria Musculoskeletal: Denies: back pain Skin: Denies: rash Neurological: Denies: headache Past Medical History Past Medical History: GI Bleed Additional Past Medical History / Comment(s): DIVERTICULITIS.HERNIA, herniated discs,sciatica, History of Any Multi-Drug Resistant Organisms: None Reported Past Surgical History: Cholecystectomy, Hysterectomy Additional Past Surgical History / Comment(s): right ankle fracture Past Anesthesia/Blood Transfusion Reactions: No Reported Reaction Past Psychological History: Anxiety, Bipolar, Depression, Panic Disorder Smoking Status: Current every day smoker Past Alcohol Use History: None Reported Past Drug Use History: None Reported - Past Family History Mother Family Medical History: Deep Vein Thrombosis (DVT) Father Family Medical History: Cancer, Hypertension Additional Family Medical History / Comment(s): dad has bladder ca General Exam Limitations: no limitations General appearance: alert, in no apparent distress Head exam: Present: atraumatic, normocephalic Respiratory exam: Present: normal lung sounds bilaterally Cardiovascular Exam: Present: regular rate, normal rhythm, normal heart sounds GI/Abdominal exam: Present: soft, tenderness (Patient has tenderness to the lower abdomen.). Absent: distended Rectal exam: Present: normal inspection, normal rectal tone, heme (-) stool Back exam: Present: normal inspection Neurological exam: Present: alert, oriented X3 Psychiatric exam: Present: normal affect, normal mood Skin exam: Present: warm, dry, intact Course Vital Signs 08/16/17 23:28 Temperature 98 F Pulse Rate 108 H Respiratory 18 Rate Blood Pressure 123/108 O2 Sat by Pulse 100 Oximetry Medical Decision Making - Medical Decision Making Patient presents with a chief complaint of abdominal pain. On initial evaluation, patient is in mild distress secondary to pain. Vital signs are stable. Review previous visit yesterday shows that the patient had a negative workup, and a computed tomography scan that showed dilated loops of small bowel that were possibly indicative of an ileus. Patient reports having a bowel movement today which makes ileus less likely. Patient will be given Toradol, Bentyl, and Benadryl. I will recheck lab work. I don't believe there to be utility for abdominal imaging again today. 12:46 AM Evaluation of this patient remains unremarkable. A reevaluation, the patient states that she is still having lower abdominal pain. I discussed that we will not be using narcotic medications today. I discussed discharge and follow-up with GI however the patient does not feel comfortable going home. Given that she is returning today with a continuation of her pain yesterday and she had a abnormal CT finding of a possible ileus the patient will be placed in observation and discharged in the morning. Admission will go to Dr. Arenas. Dr. Pena updated on the patient's presence. - Lab Data Result diagrams: 08/16/17 23:50 08/16/17 23:50 Lab Results 08/16/17 08/16/17 08/16/17 Range/Units 23:50 23:50 23:50 WBC 9.1 (3.8-10.6) k/uL RBC 3.93 (3.80-5.40) m/uL Hgb 12.9 (11.4-16.0) gm/dL Hct 39.1 (34.0-46.0) % MCV 99.4 (80.0-100.0) fL MCH 32.9 (25.0-35.0) pg MCHC 33.1 (31.0-37.0) g/dL RDW 13.8 (11.5-15.5) % Plt Count 384 (150-450) k/uL Neutrophils % 63 % Lymphocytes % 27 % Monocytes % 7 % Eosinophils % 1 % Basophils % 0 % Neutrophils # 5.8 (1.3-7.7) k/uL Lymphocytes # 2.5 (1.0-4.8) k/uL Monocytes # 0.7 (0-1.0) k/uL Eosinophils # 0.1 (0-0.7) k/uL Basophils # 0.0 (0-0.2) k/uL Sodium 141 (137-145) mmol/L Potassium 4.1 (3.5-5.1) mmol/L Chloride 109 H (98-107) mmol/L Carbon Dioxide 21 L (22-30) mmol/L Anion Gap 11 mmol/L BUN 13 (7-17) mg/dL Creatinine 0.90 (0.52-1.04) mg/dL Est GFR (MDRD) Af Amer >60 (>60 ml/min/1.73 sqM) Est GFR (MDRD) Non-Af >60 (>60 ml/min/1.73 sqM) Glucose 81 (74-99) mg/dL Calcium 9.6 (8.4-10.2) mg/dL Total Bilirubin 0.2 (0.2-1.3) mg/dL AST 20 (14-36) U/L ALT 37 (9-52) U/L Alkaline Phosphatase 74 (38-126) U/L Total Protein 7.0 (6.3-8.2) g/dL Albumin 4.2 (3.5-5.0) g/dL Lipase 213 (23-300) U/L Urine Color Light Yellow Urine Appearance Cloudy H (Clear) Urine pH 6.0 (5.0-8.0) Ur Specific [place] 1.008 (1.001-1.035) Urine Protein Trace H (Negative) Urine Glucose (UA) Negative (Negative) Urine Ketones Negative (Negative) Urine Blood Negative (Negative) Urine Nitrite Negative (Negative) Urine Bilirubin Negative (Negative) Urine Urobilinogen <2.0 (<2.0) mg/dL Ur Leukocyte Esterase Moderate H (Negative) Urine RBC <1 (0-5) /hpf Urine WBC 7 H (0-5) /hpf Ur Squamous Epith Cells 9 H (0-4) /hpf Urine Bacteria Rare H (None) /hpf Hyaline Casts 1 (0-2) /lpf Urine Mucus Rare H (None) /hpf Stool Occult Blood (Negative) 08/16/17 Range/Units 23:50 WBC (3.8-10.6) k/uL RBC (3.80-5.40) m/uL Hgb (11.4-16.0) gm/dL Hct (34.0-46.0) % MCV (80.0-100.0) fL MCH (25.0-35.0) pg MCHC (31.0-37.0) g/dL RDW (11.5-15.5) % Plt Count (150-450) k/uL Neutrophils % % Lymphocytes % % Monocytes % % Eosinophils % % Basophils % % Neutrophils # (1.3-7.7) k/uL Lymphocytes # (1.0-4.8) k/uL Monocytes # (0-1.0) k/uL Eosinophils # (0-0.7) k/uL Basophils # (0-0.2) k/uL Sodium (137-145) mmol/L Potassium (3.5-5.1) mmol/L Chloride (98-107) mmol/L Carbon Dioxide (22-30) mmol/L Anion Gap mmol/L BUN (7-17) mg/dL Creatinine (0.52-1.04) mg/dL Est GFR (MDRD) Af Amer (>60 ml/min/1.73 sqM) Est GFR (MDRD) Non-Af (>60 ml/min/1.73 sqM) Glucose (74-99) mg/dL Calcium (8.4-10.2) mg/dL Total Bilirubin (0.2-1.3) mg/dL AST (14-36) U/L ALT (9-52) U/L Alkaline Phosphatase (38-126) U/L Total Protein (6.3-8.2) g/dL Albumin (3.5-5.0) g/dL Lipase (23-300) U/L Urine Color Urine Appearance (Clear) Urine pH (5.0-8.0) Ur Specific [place] (1.001-1.035) Urine Protein (Negative) Urine Glucose (UA) (Negative) Urine Ketones (Negative) Urine Blood (Negative) Urine Nitrite (Negative) Urine Bilirubin (Negative) Urine Urobilinogen (<2.0) mg/dL Ur Leukocyte Esterase (Negative) Urine RBC (0-5) /hpf Urine WBC (0-5) /hpf Ur Squamous Epith Cells (0-4) /hpf Urine Bacteria (None) /hpf Hyaline Casts (0-2) /lpf Urine Mucus (None) /hpf Stool Occult Blood Negative (Negative) Disposition Clinical Impression: Intractable abdominal pain Disposition: ADMITTED IP TO THIS [facility] Condition: Good Referrals: Mario Mcdaniels DO [Primary Care Provider] - 1-2 days Decision to Admit Reason: Admit from [facility] - Out of Hospital Transfer - Req. Specs Out of Hospital Transfer - Requested Specifics: Other Non-Acute
[2017-08-17 00:25] LABS: Basophils % (A) 0 %; CH 34.3; CHCM 34.7; Eosinophils # (A) 0.1 k/uL (0-0.7); Eosinophils % (A) 1 %; HCT 39.1 % (34.0-46.0); HDW 2.47; HGB 12.9 gm/dL (11.4-16.0); Luc # (Auto) 0.15; Luc % (Auto) 2; Lymphocytes # (A) 2.5 k/uL (1.0-4.8); Lymphocytes % (A) 27 %; MCH 32.9 pg (25.0-35.0); MCHC 33.1 g/dL (31.0-37.0); MCV 99.4 fL (80.0-100.0); Mean Platelet Volume 7.1; Monocytes # (A) 0.7 k/uL (0-1.0); Monocytes % (A) 7 %; Neutrophils # (A) 5.8 k/uL (1.3-7.7); Neutrophils % (A) 63 %; RBC 3.93 m/uL (3.80-5.40); RDW 13.8 % (11.5-15.5); WBC 9.1 k/uL (3.8-10.6); WBC (Perox) 9.61
[2017-08-17 00:32] LABS: Appearance,Urine Cloudy (Clear); Bacteria,Urine Rare /hpf; Bilirubin,Urine Negative (Negative); Glucose,Urine (UA) Negative (Negative); Ketones,Urine Negative (Negative); Leukocyte Esterase,Urine Moderate (Negative); Mucus,Urine Rare /hpf; Nitrite,Urine Negative (Negative); Particle Count 3735; Protein,Urine Trace (Negative); RBC,Urine <1 /hpf (0-5); Specific Gravity,Urine 1.008 (1.001-1.035); Squamous Epithelial Cell,Urine 9 /hpf (0-4); UA Billing (MACRO vs. MICRO) MICRO; Urobilinogen,Urine <2.0 mg/dL (<2.0); WBC,Urine 7 /hpf (0-5)
[2017-08-17 00:35] LABS: ALT 37 U/L (9-52); AST 20 U/L (14-36); Alkaline Phosphatase 74 U/L (38-126); Anion Gap 11 mmol/L; Blood Urea Nitrogen 13 mg/dL (7-17); Calcium 9.6 mg/dL (8.4-10.2); Carbon Dioxide 21 mmol/L (22-30); Chloride 109 mmol/L (98-107); Glucose 81 mg/dL (74-99); Non-African American GFR(MDRD) >60 (>60 ml/min/1.73 sqM); Potassium 4.1 mmol/L (3.5-5.1); Sodium 141 mmol/L (137-145); Total Bilirubin 0.2 mg/dL (0.2-1.3)
[2017-08-17] MEDS ORDERED: ONDANSETRON 4 MG/2 ML VIAL IVP PRN (00:48)
[2017-08-17] MEDS ORDERED: NALOXONE 0.4 MG/ML 1 ML VIAL IV PRN (00:48)
[2017-08-17] MEDS ORDERED: METOCLOPRAMIDE 5 MG/ML 2 ML VIAL IVP STA (01:02)
[2017-08-17] MEDS: ACETAMINOPHEN TAB 325 MG TAB PO PRN ×2 (01:57→08:01)
[2017-08-17] MEDS ORDERED: MELATONIN 5 MG TABLET PO PRN (02:55)
[2017-08-17] MEDS: KETOROLAC 30 MG/ML 1 ML VIAL IVP PRN ×4 (04:39→23:04)
[2017-08-17] MEDS: DULoxetine HCL 60 MG CAPSULE.DR PO SCH (08:53)
[2017-08-17] MEDS: METOCLOPRAMIDE 10 MG TAB PO SCH ×2 (08:53→16:13)
[2017-08-17] MEDS: clonazePAM 1 MG TAB PO PRN (08:53)
[2017-08-17] MEDS ORDERED: HYDROmorphone 1 MG/ML 1 ML SYRINGE IVP STA (13:58)
[2017-08-17] MEDS ORDERED: traZODone HCL 50 MG TAB PO PRN (15:04)
--- NOTE | 2017-08-17 23:08 | P.HPIM ---
History of Present Illness H&P Date: 08/17/17 Chief Complaint: Abdominal pain The patient is a 51-year-old female who presents with a chief complaint lower abdominal pain. Patient says that she's been having abdominal pain for the past 4 months and worsen suddenly at about 10:00 p.m. last night . She states it is a sharp pain in her lower abdomen. Mainly right lower side. She cannot identify an inciting incident. She does not identify any aggravating or alleviating factors. Patient stated that she had a bowel movement today. Patient had computed tomography scan of the abdomen and pelvis with contrast which showed a possible ileus as she had dilated loops of small bowel. Given the fact the patient had a bowel movement today ileus is unlikely. Patient never had a colonoscopy. Patient is also complaining of on and off constipation for the past 4 months. Denied any significant weight loss. Last about 5 pounds last 4 months. Patient denied any change in appetite in that she usually eats less. Patient also noted 6 of blood in the stool as well. Gastroenterology was consulted for evaluation. Patient is still complaining of significant abdominal pain. Review of Systems Constitutional: Patient denies any fever or chills . No generalized weakness or weight loss. Abdomen: Patient does complain of abdominal pain lower side right mainly. Constipation. Nausea. No vomiting vomiting. Cardiovascular: Patient denies any chest pain or short of breath no palpitations. Respiratory: patient denied any cough is from production. No shortness of breath Neurologic: Patient denied any numbness or tingling headache. Musculoskeletal: Patient denies any complaints of joint swelling or deformity. Skin: Negative Psychiatric: Negative Endocrine: No heat or cold intolerance. No recent weight gain. Genitourinary: No dysuria or hematuria. All other 14 point ROS negative except the above Past Medical History Past Medical History: GI Bleed Additional Past Medical History / Comment(s): DIVERTICULITIS.HERNIA, herniated discs,sciatica, History of Any Multi-Drug Resistant Organisms: None Reported Past Surgical History: Cholecystectomy, Hysterectomy Additional Past Surgical History / Comment(s): right ankle fracture Past Anesthesia/Blood Transfusion Reactions: No Reported Reaction Past Psychological History: Anxiety, Bipolar, Depression, Panic Disorder Additional Psychological History / Comment(s): dyslexia Smoking Status: Current every day smoker Past Alcohol Use History: None Reported Additional Past Alcohol Use History / Comment(s): 1 PACK WILL LAST 1 WEEK Past Drug Use History: None Reported - Past Family History Mother Family Medical History: Deep Vein Thrombosis (DVT) Father Family Medical History: Cancer, Hypertension Additional Family Medical History / Comment(s): dad has bladder ca Medications and Allergies Home Medications Medication Instructions Recorded Confirmed Type DULoxetine HCL [Cymbalta] 120 mg PO DAILY 05/19/17 08/17/17 History Acetaminophen Tab [Tylenol Tab] 650 mg PO Q4H PRN #60 tablet 08/15/17 08/17/17 Rx Ondansetron Odt [Zofran Odt] 4 mg PO Q8HR PRN #15 tab 08/15/17 08/17/17 Rx clonazePAM [KlonoPIN] 1 mg PO DAILY PRN 08/15/17 08/17/17 History traZODone HCL 50 mg PO HS PRN 08/17/17 08/17/17 History Allergies Allergy/AdvReac Type Severity Reaction Status Date / Time ibuprofen [From Motrin] Allergy Rash/Hives Verified 08/17/17 07:23 strawberry Allergy Rash/Hives Verified 08/17/17 07:23 Physical Exam Vitals: Vital Signs Temp Pulse Pulse Pulse Resp BP BP 08/17/17 11:51 76 72 16 08/17/17 08:00 76 72 16 08/17/17 07:50 98.2 F 72 16 104/68 08/17/17 01:48 98.3 F 76 18 109/71 08/17/17 01:36 18 08/16/17 23:28 98 F 108 H 18 123/108 Pulse Ox 08/17/17 11:51 08/17/17 08:00 08/17/17 07:50 99 08/17/17 01:48 98 08/17/17 01:36 08/16/17 23:28 100 Intake and Output 08/16/17 08/17/17 08/17/17 22:59 06:59 14:59 Intake Total 0 Balance 0 Intake: Oral 0 Other: Voiding Method Toilet Toilet # Voids 2 Weight 68.039 kg PHYSICAL EXAMINATION: Patient is lying in the bed comfortably, no acute distress, awake alert and oriented.. Anxious HEENT: Normocephalic. Neck is supple. Pupils reactive. Nostrils clear. Oral cavity is moist. Ears reveal no drainage. Neck reveals no JVD, carotid bruits, or thyromegaly. CHEST EXAMINATION: Trachea is central. Symmetrical expansion. Lung carmona clear to auscultation and percussion. CARDIAC: Normal S1, S2 with no gallops. No murmurs ABDOMEN: Soft. Lower abdominal tenderness right greater than left. Bowel sounds sluggish. No organomegaly. No abdominal bruits. Extremities: reveal no edema. No clubbing or cyanosis Neurologically awake, alert, oriented x3 with well-coordinated movements. No focal deficits noted Skin: No rash or skin lesions. Psychiatric: Operative. Nonsuicidal Musculoskeletal: No joint swelling or deformity. Normal range of motion. Results CBC & Chem 7: 08/16/17 23:50 08/16/17 23:50 Labs: Abnormal Lab Results - Last 24 Hours (Table) 08/16/17 08/16/17 Range/Units 23:50 23:50 Chloride 109 H (98-107) mmol/L Carbon Dioxide 21 L (22-30) mmol/L Urine Appearance Cloudy H (Clear) Urine Protein Trace H (Negative) Ur Leukocyte Esterase Moderate H (Negative) Urine WBC 7 H (0-5) /hpf Ur Squamous Epith Cells 9 H (0-4) /hpf Urine Bacteria Rare H (None) /hpf Urine Mucus Rare H (None) /hpf Thrombosis Risk Factor Assmnt - DVT/VTE Prophylaxis DVT/VTE Prophylaxis: Pharmacologic Prophylaxis ordered - Choose All That Apply Any of the Below Risk Factors Present?: Yes Each Factor Represents 1 point: Age 41-60 years, Obesity (BMI >25) Other Risk Factors: Yes Each Risk Factor Represents 3 Points: Family history of DVT/PE Other congenital or acquired thrombophilia - If yes, enter type in comment: No Thrombosis Risk Factor Assessment Total Risk Factor Score: 5 Thrombosis Risk Factor Assessment Level: High Risk Assessment and Plan Plan: #1 abdominal pain likely due to ileus which is improved. Due to chronicity of symptoms of abdominal pain for the past 4 months and on and off constipation, we will consult GI for further evaluation. Patient did have CT of abdomen pelvis done in the ER on 08/15/2017 showed ileus and extensive colonic diverticulosis. Small bowel distention compared to old exam. #2 history of diverticulitis #3 sciatica #4 anxiety depression and bipolar disorder #5 herniated disc Plan: Patient will be continued on pain medications and stool softeners. GI evaluation. Continue the home medications and further recommendations based on the clinical course. We will start back on her medications for anxiety and depression.
[2017-08-18] MEDS: METOCLOPRAMIDE 10 MG TAB PO SCH ×2 (00:53→08:04)
[2017-08-18] MEDS: KETOROLAC 30 MG/ML 1 ML VIAL IVP PRN ×2 (05:57→12:21)
[2017-08-18 07:53] LABS: Basophils % (A) 0 %; CH 34.1; CHCM 34.1; Eosinophils # (A) 0.1 k/uL (0-0.7); Eosinophils % (A) 1 %; HCT 40.4 % (34.0-46.0); HDW 2.48; HGB 13.3 gm/dL (11.4-16.0); Luc % (Auto) 1; Lymphocytes # (A) 1.5 k/uL (1.0-4.8); Lymphocytes % (A) 23 %; MCH 33.1 pg (25.0-35.0); MCV 100.5 fL (80.0-100.0); Macrocytosis Slight; Mean Platelet Volume 6.9; Monocytes # (A) 0.4 k/uL (0-1.0); Monocytes % (A) 6 %; Neutrophils # (A) 4.6 k/uL (1.3-7.7); Neutrophils % (A) 69 %; RBC 4.02 m/uL (3.80-5.40); RDW 13.8 % (11.5-15.5); WBC 6.6 k/uL (3.8-10.6); WBC (Perox) 6.74
[2017-08-18] MEDS: clonazePAM 1 MG TAB PO PRN (08:04)
[2017-08-18 08:06] LABS: Anion Gap 8 mmol/L; Blood Urea Nitrogen 9 mg/dL (7-17); Calcium 9.1 mg/dL (8.4-10.2); Carbon Dioxide 24 mmol/L (22-30); Chloride 110 mmol/L (98-107); Glucose 84 mg/dL (74-99); Non-African American GFR(MDRD) >60 (>60 ml/min/1.73 sqM); Potassium 4.8 mmol/L (3.5-5.1); Sodium 142 mmol/L (137-145)
[2017-08-18 08:12] VITALS: BP 108/68; RESP 18; TEMP 97.8
[2017-08-18 09:05] VITALS: PULSE 76
[2017-08-18] MEDS: DULoxetine HCL 60 MG CAPSULE.DR PO SCH (09:05)
--- NOTE | 2017-08-18 12:29 | P.CONS ---
History of Present Illness - Reason for Consult Consult date: 08/18/17 abdominal pain Requesting physician: Shawna Arenas - History of Present Illness 51-year-old female with a history of bipolar depression admitted with abdominal pain in the lower abdomen with nausea vomiting diarrhea for the last 3 days however upon review of medical records it appears patient has been dealing with pain not necessarily diarrhea intermittently for the last month. He has visited the emergency room twice in the last few days. Patient is requesting pain medications. No history of colonoscopy. Denies hematemesis hematochezia melena. Afebrile. White count 6.6. He will and 13.3. Platelets 393. BUN 9. Creatinine 0.8. Hemoccult stool negative. 2 small bowel movement since admission. No emesis. He T abdomen and pelvis 08/15/2017 reported small bowel dilation with mild ileus with colonic diverticulosis. No evidence of diverticulitis. Normal appendix. No Sick contacts. No changes in medications. No recent antibiotics. Review of Systems RConstitutional: Denies fever, chills, sweats, weight gain, or loss. HEENT: Negative for migraines, blurred vision or loss, earaches, drainage, tinnitus, oral mucosal lesions, dysphagia, or odynophagia. CARDIAC: Negative for chest pain, arrhythmias, or palpitation. RESPIRATORY: Cigarette smoker. Negative for shortness of breath, hemoptysis, cough, or sputum production. GI: See HPI for pertinent findings. : Negative for hematuria, urgency, frequency, polyuria, or dysuria. GYNc: Denies possibility of . Negative vaginal discharge. MUSCULOSKELETAL: Negative for muscle aches, swelling, arthritis, and arthralgias. NEUROLOGIC: Negative for stroke or TIA. ENDOCRINE: Negative for thyroid problems. SKIN: Negative for rash or itching. PSYCHIATRIC: Bipolar anxiety depression All systems: negative (See HPI) Past Medical History Past Medical History: GI Bleed Additional Past Medical History / Comment(s): DIVERTICULITIS.HERNIA, herniated discs,sciatica, History of Any Multi-Drug Resistant Organisms: None Reported Past Surgical History: Cholecystectomy, Hysterectomy Additional Past Surgical History / Comment(s): right ankle fracture Past Anesthesia/Blood Transfusion Reactions: No Reported Reaction Past Psychological History: Anxiety, Bipolar, Depression, Panic Disorder Additional Psychological History / Comment(s): dyslexia Smoking Status: Current every day smoker Past Alcohol Use History: None Reported Additional Past Alcohol Use History / Comment(s): 1 PACK WILL LAST 1 WEEK Past Drug Use History: None Reported - Past Family History Mother Family Medical History: Deep Vein Thrombosis (DVT) Father Family Medical History: Cancer, Hypertension Additional Family Medical History / Comment(s): dad has bladder ca Medications and Allergies Home Medications Medication Instructions Recorded Confirmed Type DULoxetine HCL [Cymbalta] 120 mg PO DAILY 05/19/17 08/17/17 History Acetaminophen Tab [Tylenol Tab] 650 mg PO Q4H PRN #60 tablet 08/15/17 08/17/17 Rx Ondansetron Odt [Zofran Odt] 4 mg PO Q8HR PRN #15 tab 08/15/17 08/17/17 Rx clonazePAM [KlonoPIN] 1 mg PO DAILY PRN 08/15/17 08/17/17 History traZODone HCL 50 mg PO HS PRN 08/17/17 08/17/17 History Allergies Allergy/AdvReac Type Severity Reaction Status Date / Time ibuprofen [From Motrin] Allergy Rash/Hives Verified 08/17/17 07:23 strawberry Allergy Rash/Hives Verified 08/17/17 07:23 Physical Exam Vitals: Vital Signs Temp Pulse Pulse Resp BP Pulse Ox 08/18/17 08:00 97.8 F 76 82 18 108/68 97 08/18/17 03:49 98.4 F 68 16 118/66 95 08/17/17 23:14 98.1 F 74 16 122/68 95 08/17/17 23:09 18 08/17/17 19:43 18 08/17/17 16:00 76 77 18 08/17/17 15:47 98.5 F 77 18 130/60 99 Intake and Output 08/17/17 08/18/17 08/18/17 22:59 06:59 14:59 Intake Total 1020 Balance 1020 Intake: Oral 1020 Other: Voiding Method Toilet Toilet Toilet # Voids 2 3 # Bowel Movements 2 Weight 68 kg General appearance: The patient is alert, oriented, in no acute distress. HET: Head is normocephalic and atraumatic. Pupils are equal and reactive. Oropharynx is clear without lesions. Neck: Supple without lymphadenopathy. Trachea midline. Heart: S1 S2. Regular rate and rhythm. Lungs: No crackles or wheezes are heard. Abdomen: Soft, mild tenderness bilateral lower abdomen, nondistended with bowel sounds. No peritoneal signs. No palpable organomegaly or masses. Extremities: Normal skin color and turgor. No cyanosis, rash, ulceration, clubbing, or edema. Radial and pedal pulses are 2/4 bilaterally. Neurological: No focal deficits. Strength and sensation are grossly intact. Results CBC & Chem 7: 08/18/17 07:28 08/18/17 07:28 Labs: Abnormal Lab Results - Last 24 Hours (Table) 08/18/17 08/18/17 Range/Units 07:28 07:28 MCV 100.5 H (80.0-100.0) fL Chloride 110 H (98-107) mmol/L CT scan - abdomen: report reviewed (08/15/[address] Keita) Assessment and Plan (1) Abdominal pain Narrative/Plan: Nausea vomiting nonbloody diarrhea intermittently in the last week possibly month possible gastroenteritis with underlying diverticulosis. Status: Acute Plan: 1. Outpatient colonoscopy screening discussed and recommended for investigation of abdominal pain and secondary to no history of colonoscopy, greater than 50 years of age. Outpatient colonoscopy scheduled for Monday, . Continue supportive measures. Initiate liquid diet advance as tolerated. Thank you for this kind referral and the opportunity to participate in the care of your patient. This consultation was discussed with Dr. Salamanca. The impression and plan of care have been directed as dictated.
--- NOTE | 2017-08-19 01:22 | P.DS ---
Providers Date of admission: 08/17/17 00:53 Expected date of discharge: 08/18/17 Attending physician: Shawan Arenas Consults: 08/17/17 14:38 Consult Physician Routine Consulting Provider: Ai Salamanca Consult Reason/Comments: abd. pain going on for a month Do you want consulting provider notified?: Yes Primary care physician: Mario [facility] Course: Discharge diagnosis #1 abdominal pain likely due to ileus which is improved. Due to chronicity of symptoms of abdominal pain for the past 4 months and on and off constipation, we will consult GI for further evaluation. Patient did have CT of abdomen pelvis done in the ER on 08/15/2017 showed ileus and extensive colonic diverticulosis. Small bowel distention compared to old exam. Patient is scheduled for outpatient colonoscopy. #2 history of diverticulitis #3 sciatica #4 anxiety depression and bipolar disorder #5 herniated disc Hospital course The patient is a 51-year-old female who presents with a chief complaint lower abdominal pain. Patient says that she's been having abdominal pain for the past 4 months and worsen suddenly at about 10:00 p.m. last night . She states it is a sharp pain in her lower abdomen. Mainly right lower side. She cannot identify an inciting incident. She does not identify any aggravating or alleviating factors. Patient stated that she had a bowel movement today. Patient had computed tomography scan of the abdomen and pelvis with contrast which showed a possible ileus as she had dilated loops of small bowel. Given the fact the patient had a bowel movement today ileus is unlikely. Patient never had a colonoscopy. Patient is also complaining of on and off constipation for the past 4 months. Denied any significant weight loss. Last about 5 pounds last 4 months. Patient denied any change in appetite in that she usually eats less. Patient also noted 6 of blood in the stool as well. Gastroenterology was consulted for evaluation. On 08/18/2017 Patient was seen by gastro enterology. Nausea vomiting and abdominal pain with intermittent diarrhea nonbloody likely due to gastroenteritis with underlying diverticulosis. Patient is scheduled for outpatient colonoscopy on Monday. Pain is controlled with pain medications. Patient is stable to be discharged home. Patient was continued on pain medications and stool softeners. Patient did have bowel movement while in the ER. Patient is fairly controlled patient is scheduled for outpatient colonoscopy. Discharge physical examination done and laboratory data reviewed Patient Condition at Discharge: Good Plan - Discharge Summary New Discharge Prescriptions: New Peg 3350-Na Sulf,Bicarb,Cl/KCl [Golytely Lavage] 4,000 ml PO DIRECTED #1 bottle HYDROcodone/APAP 5-325MG [[place] 5-325] 1 tab PO Q6HR PRN #12 tab PRN Reason: Pain Continue DULoxetine HCL [Cymbalta] 120 mg PO DAILY clonazePAM [KlonoPIN] 1 mg PO DAILY PRN PRN Reason: Anxiety Acetaminophen Tab [Tylenol] 650 mg PO Q4H PRN #60 tablet PRN Reason: Pain Ondansetron Odt [Zofran ODT] 4 mg PO Q8HR PRN #15 tab PRN Reason: Nausea traZODone HCL 50 mg PO HS PRN PRN Reason: sleep Discharge Medication List DULoxetine HCL [Cymbalta] 120 mg PO DAILY 05/19/17 [History] Acetaminophen Tab [Tylenol] 650 mg PO Q4H PRN #60 tablet 08/15/17 [Rx] Ondansetron Odt [Zofran ODT] 4 mg PO Q8HR PRN #15 tab 08/15/17 [Rx] clonazePAM [KlonoPIN] 1 mg PO DAILY PRN 08/15/17 [History] traZODone HCL 50 mg PO HS PRN 08/17/17 [History] HYDROcodone/APAP 5-325MG [[place] 5-325] 1 tab PO Q6HR PRN #12 tab 08/18/17 [Rx] Peg 3350-Na Sulf,Bicarb,Cl/KCl [Golytely Lavage] 4,000 ml PO DIRECTED #1 bottle 08/18/17 [Rx] Follow up Appointment(s)/Referral(s): Mario Mcdaniels DO [Primary Care Provider] - 1-2 days Activity/Diet/Wound Care/Special Instructions: Colonoscopy scheduled at [facility] 08/[facility]/[address] Salamanca. Presurgical screening to notify patient with additional instructions on arrival time. Start GoLYTELY on 08/20/2017 at 3 PM prescription provided. No NSAIDs or aspirin. Nothing to eat or drink except medications after midnight on Monday for Monday procedure. Discharge Disposition: HOME SELF-CARE
== END 2017-08-18 14:40 | disposition home or self-care (01) ==
LOC: EC 23:26 → 3OBS 08-17 00:53
PROVIDERS: ADMIT Hospitalist; ATTEND Hospitalist
DX: R10.31 Right lower quadrant pain (principal); K59.00 Constipation, unspecified; R11.2 Nausea with vomiting, unspecified; R19.7 Diarrhea, unspecified; K57.30 Diverticulosis of large intestine without perforation or abscess without bleeding; K57.92 Diverticulitis of intestine, part unspecified, without perforation or abscess without bleeding; K52.9 Noninfective gastroenteritis and colitis, unspecified; M54.30 Sciatica, unspecified side; F31.9 Bipolar disorder, unspecified; F41.0 Panic disorder [episodic paroxysmal anxiety]; R48.0 Dyslexia and alexia; E66.9 Obesity, unspecified; Z68.29 Body mass index [BMI] 29.0-29.9, adult; Z79.899 Other long term (current) drug therapy; Z88.6 Allergy status to analgesic agent; Z91.018 Allergy to other foods; F17.200 Nicotine dependence, unspecified, uncomplicated; Z82.49 Family history of ischemic heart disease and other diseases of the circulatory system; Z80.52 Family history of malignant neoplasm of bladder
CPT/HCPCS: 99284; 96374; 96375 ×6; 96376 ×2; 36415; 80053; 80048; 83690; 85025 ×2; 82272; 81001; G0378 ×2; J1200; J2765; J2405; J1885 ×3; J1170

== ENCOUNTER 2017-09-14 21:03 | Emergency (ER) | payer OTHER ==
[2017-09-14 21:12] VITALS: RESP 18
[2017-09-14] MEDS ORDERED: DICYCLOMINE 10 MG/ML 2 ML AMP IM STA (21:35)
[2017-09-14] MEDS ORDERED: ONDANSETRON 4 MG/2 ML VIAL IVP STA (21:36)
--- NOTE | 2017-09-14 21:41 | ED ---
Abdominal Pain HPI - General Chief Complaint: Abdominal Pain Stated Complaint: ABD Pain Time Seen by Provider: 09/14/17 21:27 Source: EMS Mode of arrival: EMS Limitations: no limitations - History of Present Illness Initial Comments: this patient is a 52-year-old woman who states that about 2 hours ago while she was sitting and watching TV she developed acute onset of sharp severe right lower quadrant pain. She states that it was accompanied by having vomiting. The patient states that since then the pain has been constant. She has not discovered any worsening or relieving factors. MD Complaint: abdominal pain Onset/Timin -: hour(s) Location: RLQ Radiation: none Migration to: no migration Severity: severe Quality: sharp Consistency: constant Improves With: nothing Worsens With: nothing Associated Symptoms: vomiting - Related Data Home Medications Medication Instructions Recorded Confirmed DULoxetine HCL [Cymbalta] 120 mg PO DAILY 05/19/17 09/14/17 clonazePAM [KlonoPIN] 1 mg PO DAILY PRN 08/15/17 09/14/17 traZODone HCL 50 mg PO HS PRN 08/17/17 09/14/17 Allergies Allergy/AdvReac Type Severity Reaction Status Date / Time ibuprofen [From Motrin] Allergy Rash/Hives Verified 09/14/17 21:14 strawberry Allergy Rash/Hives Verified 09/14/17 21:14 Review of Systems ROS Statement: Those systems with pertinent positive or pertinent negative responses have been documented in the HPI. ROS Other: All systems not noted in ROS Statement are negative. Constitutional: Denies: fever, chills Respiratory: Denies: cough, dyspnea Cardiovascular: Denies: chest pain, palpitations, edema Gastrointestinal: Reports: abdominal pain, nausea, vomiting. Denies: diarrhea, constipation, melena, hematochezia Genitourinary: Denies: dysuria, frequency, hematuria Musculoskeletal: Denies: back pain Skin: Denies: rash Neurological: Denies: headache Past Medical History Past Medical History: GI Bleed Additional Past Medical History / Comment(s): DIVERTICULITIS.HERNIA, herniated discs,sciatica, History of Any Multi-Drug Resistant Organisms: None Reported Past Surgical History: Cholecystectomy, Hysterectomy Additional Past Surgical History / Comment(s): right ankle fracture Past Anesthesia/Blood Transfusion Reactions: No Reported Reaction Past Psychological History: Anxiety, Bipolar, Depression, Panic Disorder Smoking Status: Current every day smoker Past Alcohol Use History: None Reported Past Drug Use History: None Reported - Past Family History Mother Family Medical History: Deep Vein Thrombosis (DVT) Father Family Medical History: Cancer, Hypertension Additional Family Medical History / Comment(s): dad has bladder ca General Exam Limitations: no limitations General appearance: alert, in no apparent distress Head exam: Present: atraumatic, normocephalic Eye exam: Present: normal appearance. Absent: scleral icterus, conjunctival injection ENT exam: Present: normal oropharynx Neck exam: Present: normal inspection Respiratory exam: Present: normal lung sounds bilaterally. Absent: respiratory distress, wheezes, rales, rhonchi, stridor Cardiovascular Exam: Present: regular rate, normal rhythm, normal heart sounds. Absent: systolic murmur, diastolic murmur, rubs, gallop GI/Abdominal exam: Present: soft, tenderness (right lower quadrant), normal bowel sounds. Absent: distended, guarding, rebound, rigid, mass, pulsatile mass , hernia Extremities exam: Present: normal inspection, normal capillary refill. Absent: pedal edema, calf tenderness Back exam: Present: normal inspection. Absent: CVA tenderness (R), CVA tenderness (L) Neurological exam: Present: alert Skin exam: Present: warm, dry, intact, normal color. Absent: rash, cyanosis, diaphoretic, erythema, petechiae, pallor, mottled Course Vital Signs 09/14/17 09/14/17 09/14/17 21:10 21:37 22:29 Temperature 98.8 F 97.8 F Pulse Rate 81 99 100 Respiratory 18 18 18 Rate Blood Pressure 134/85 128/73 120/87 O2 Sat by Pulse 97 98 99 Oximetry Medical Decision Making - Lab Data Result diagrams: 09/14/17 21:40 09/14/17 21:40 Lab Results 09/14/17 09/14/17 09/14/17 Range/Units 19:45 21:40 21:40 WBC 6.5 (3.8-10.6) k/uL RBC 3.84 (3.80-5.40) m/uL Hgb 12.6 (11.4-16.0) gm/dL Hct 38.1 (34.0-46.0) % MCV 99.1 (80.0-100.0) fL MCH 32.7 (25.0-35.0) pg MCHC 33.0 (31.0-37.0) g/dL RDW 13.8 (11.5-15.5) % Plt Count 330 (150-450) k/uL Neutrophils % 55 % Lymphocytes % 33 % Monocytes % 9 % Eosinophils % 1 % Basophils % 1 % Neutrophils # 3.6 (1.3-7.7) k/uL Lymphocytes # 2.1 (1.0-4.8) k/uL Monocytes # 0.6 (0-1.0) k/uL Eosinophils # 0.1 (0-0.7) k/uL Basophils # 0.0 (0-0.2) k/uL Sodium 139 (137-145) mmol/L Potassium 3.9 (3.5-5.1) mmol/L Chloride 107 (98-107) mmol/L Carbon Dioxide 26 (22-30) mmol/L Anion Gap 6 mmol/L BUN 16 (7-17) mg/dL Creatinine 0.80 (0.52-1.04) mg/dL Est GFR (MDRD) Af Amer >60 (>60 ml/min/1.73 sqM) Est GFR (MDRD) Non-Af >60 (>60 ml/min/1.73 sqM) Glucose 96 (74-99) mg/dL Calcium 9.1 (8.4-10.2) mg/dL Total Bilirubin 0.3 (0.2-1.3) mg/dL AST 15 (14-36) U/L ALT 29 (9-52) U/L Alkaline Phosphatase 61 (38-126) U/L C-Reactive Protein <5.0 (<10.0) mg/L Total Protein 6.7 (6.3-8.2) g/dL Albumin 4.0 (3.5-5.0) g/dL Amylase 76 (30-110) U/L Lipase 147 (23-300) U/L Urine Color Colorless Urine Appearance Cloudy H (Clear) Urine pH 7.0 (5.0-8.0) Ur Specific [place] 1.005 (1.001-1.035) Urine Protein Negative (Negative) Urine Glucose (UA) Negative (Negative) Urine Ketones Negative (Negative) Urine Blood Negative (Negative) Urine Nitrite Negative (Negative) Urine Bilirubin Negative (Negative) Urine Urobilinogen <2.0 (<2.0) mg/dL Ur Leukocyte Esterase Small H (Negative) Urine WBC 4 (0-5) /hpf Ur Squamous Epith Cells 2 (0-4) /hpf Amorphous Sediment Rare H (None) /hpf Disposition Clinical Impression: Abdominal pain Disposition: HOME SELF-CARE Condition: Good Instructions: Abdominal Pain (ED) Referrals: Mario Mcdaniels DO [Primary Care Provider] - 1-2 days
[2017-09-14 21:49] LABS: Basophils % (A) 1 %; CH 32.8; CHCM 33.3; Eosinophils # (A) 0.1 k/uL (0-0.7); Eosinophils % (A) 1 %; HCT 38.1 % (34.0-46.0); HDW 2.28; HGB 12.6 gm/dL (11.4-16.0); Luc # (Auto) 0.13; Luc % (Auto) 2; Lymphocytes # (A) 2.1 k/uL (1.0-4.8); Lymphocytes % (A) 33 %; MCH 32.7 pg (25.0-35.0); MCV 99.1 fL (80.0-100.0); Mean Platelet Volume 6.8; Monocytes # (A) 0.6 k/uL (0-1.0); Monocytes % (A) 9 %; Neutrophils # (A) 3.6 k/uL (1.3-7.7); Neutrophils % (A) 55 %; RBC 3.84 m/uL (3.80-5.40); RDW 13.8 % (11.5-15.5); WBC 6.5 k/uL (3.8-10.6); WBC (Perox) 6.72
[2017-09-14 22:00] LABS: ALT 29 U/L (9-52); AST 15 U/L (14-36); Alkaline Phosphatase 61 U/L (38-126); Amylase 76 U/L (30-110); Anion Gap 6 mmol/L; Blood Urea Nitrogen 16 mg/dL (7-17); C Reactive Protein <5.0 mg/L (<10.0); Calcium 9.1 mg/dL (8.4-10.2); Carbon Dioxide 26 mmol/L (22-30); Chloride 107 mmol/L (98-107); Glucose 96 mg/dL (74-99); Non-African American GFR(MDRD) >60 (>60 ml/min/1.73 sqM); Potassium 3.9 mmol/L (3.5-5.1); Sodium 139 mmol/L (137-145); Total Bilirubin 0.3 mg/dL (0.2-1.3); Total Protein 6.7 g/dL (6.3-8.2)
[2017-09-14 22:05] LABS: Amorphous Sediment,Urine Rare /hpf; Appearance,Urine Cloudy (Clear); Bilirubin,Urine Negative (Negative); Glucose,Urine (UA) Negative (Negative); Ketones,Urine Negative (Negative); Leukocyte Esterase,Urine Small (Negative); Nitrite,Urine Negative (Negative); Particle Count 2805; Protein,Urine Negative (Negative); Specific Gravity,Urine 1.005 (1.001-1.035); Squamous Epithelial Cell,Urine 2 /hpf (0-4); UA Billing (MACRO vs. MICRO) MICRO; Urobilinogen,Urine <2.0 mg/dL (<2.0); WBC,Urine 4 /hpf (0-5)
--- NOTE | 2017-09-14 22:31 | XR ---
EXAMINATION TYPE: XR KUB DATE OF EXAM: 09/14/2017 COMPARISON: 03/25/2017 HISTORY: Right lower quadrant pain TECHNIQUE: 2 views FINDINGS: There is no sign of intestinal obstruction or pneumoperitoneum. Fecal pattern is normal. Th ere is no evidence of a mass. There are clips from cholecystectomy. Lung bases are clear. IMPRESSION: Nonacute abdomen. No change.
[2017-09-14 22:55] VITALS: BP 105/73; PULSE 101; TEMP 97.5
== END 2017-09-14 22:55 | disposition home or self-care (01) ==
LOC: EC 21:03
DX: R10.31 Right lower quadrant pain (principal); R11.10 Vomiting, unspecified; F31.9 Bipolar disorder, unspecified; F41.9 Anxiety disorder, unspecified; F17.200 Nicotine dependence, unspecified, uncomplicated; Z87.19 Personal history of other diseases of the digestive system; Z90.49 Acquired absence of other specified parts of digestive tract; Z88.6 Allergy status to analgesic agent; Z91.018 Allergy to other foods; Z79.899 Other long term (current) drug therapy
CPT/HCPCS: 36415; 80053; 82150; 83690; 85025; 86140; 81001; 74000; 99284; 96372; 96374; J0500; J2405

== ENCOUNTER 2017-10-31 12:01 | Emergency (ER) | payer OTHER ==
[2017-10-31] MEDS ORDERED: DICYCLOMINE 10 MG/ML 2 ML AMP IM STA (12:39)
[2017-10-31] MEDS ORDERED: SODIUM CHLORIDE 0.9% 1,000 ML IV STA (12:39)
[2017-10-31] MEDS ORDERED: FAMOTIDINE 20 MG/2 ML VIAL IV STA (12:39)
[2017-10-31] MEDS ORDERED: ONDANSETRON 4 MG/2 ML VIAL IVP STA (12:39)
[2017-10-31 12:53] LABS: Appearance,Urine Clear (Clear); Bilirubin,Urine Negative (Negative); Glucose,Urine (UA) Negative (Negative); Ketones,Urine Negative (Negative); Leukocyte Esterase,Urine Negative (Negative); Nitrite,Urine Negative (Negative); PH, Urine 6.5 (5.0-8.0); Protein,Urine Negative (Negative); Specific Gravity,Urine 1.003 (1.001-1.035); UA Billing (MACRO vs. MICRO) CHEM; Urobilinogen,Urine <2.0 mg/dL (<2.0)
[2017-10-31 12:56] LABS: Basophils % (A) 1 %; CH 33.6; Eosinophils % (A) 1 %; HCT 42.3 % (34.0-46.0); HDW 2.59; HGB 14.2 gm/dL (11.4-16.0); Luc # (Auto) 0.13; Luc % (Auto) 2; Lymphocytes # (A) 1.2 k/uL (1.0-4.8); Lymphocytes % (A) 19 %; MCH 32.4 pg (25.0-35.0); MCHC 33.6 g/dL (31.0-37.0); MCV 96.4 fL (80.0-100.0); Mean Platelet Volume 6.6; Monocytes # (A) 0.3 k/uL (0-1.0); Monocytes % (A) 5 %; Neutrophils # (A) 4.7 k/uL (1.3-7.7); Neutrophils % (A) 73 %; RBC 4.38 m/uL (3.80-5.40); RDW 12.8 % (11.5-15.5); WBC 6.5 k/uL (3.8-10.6); WBC (Perox) 6.15
--- NOTE | 2017-10-31 13:02 | ED ---
General Adult HPI - General Chief complaint: Abdominal Pain Stated complaint: Abd Pain, Right Side Pain Time Seen by Provider: 10/31/17 12:26 Source: patient, RN notes reviewed Mode of arrival: ambulatory Limitations: no limitations - History of Present Illness Initial comments: 52-year-old female presents to the emergency department with a chief complaint of right-sided abdominal pain. Patient states she's had this pain since last night. She is chronically suffers from abdominal pain. This is much like her normal pain. Patient denies any diarrhea with it but she states she has had nausea vomiting. Patient was concerned due to her continued discomfort so she thought that she should be seen. There is been no fever chills with this. There's been no cough cold or runny nose. She denies any changes in bowel or bladder habits. Patient states she is not currently having any other symptoms. This time patient states she tried to take her tramadol for medication with no. Patient denies any recent fever, chills, shortness of breath, chest pain, back pain, numbness or tingling, dysuria or hematuria, constipation or diarrhea , headaches or visual changes, or any other current symptoms. - Related Data Home Medications Medication Instructions Recorded Confirmed DULoxetine HCL [Cymbalta] 120 mg PO DAILY 05/19/17 10/31/17 clonazePAM [KlonoPIN] 1 mg PO DAILY PRN 08/15/17 10/31/17 traZODone HCL 50 mg PO HS PRN 08/17/17 10/31/17 Previous Rx's Medication Instructions Recorded Ondansetron Odt [Zofran ODT] 4 mg PO Q8HR PRN #20 tab 10/31/17 Allergies Allergy/AdvReac Type Severity Reaction Status Date / Time ibuprofen [From Motrin] Allergy Rash/Hives Verified 10/31/17 12:11 strawberry Allergy Rash/Hives Verified 10/31/17 12:11 Review of Systems ROS Statement: Those systems with pertinent positive or pertinent negative responses have been documented in the HPI. ROS Other: All systems not noted in ROS Statement are negative. Past Medical History Past Medical History: GI Bleed Additional Past Medical History / Comment(s): DIVERTICULITIS.HERNIA, herniated discs,sciatica, History of Any Multi-Drug Resistant Organisms: None Reported Past Surgical History: Cholecystectomy, Hysterectomy Additional Past Surgical History / Comment(s): right ankle fracture Past Anesthesia/Blood Transfusion Reactions: No Reported Reaction Past Psychological History: Anxiety, Bipolar, Depression, Panic Disorder Smoking Status: Current every day smoker Past Alcohol Use History: None Reported Past Drug Use History: None Reported - Past Family History Mother Family Medical History: Deep Vein Thrombosis (DVT) Father Family Medical History: Cancer, Hypertension Additional Family Medical History / Comment(s): dad has bladder ca General Exam - General Exam Comments Initial Comments: General: The patient is awake and alert, in no distress, and does not appear acutely ill. Eye: Pupils are equal, round and reactive to light, extra-ocular movements are intact; there is normal conjunctiva bilaterally. No signs of icterus. Ears, nose, mouth and throat: There are moist mucous membranes. Neck: The neck is supple, there is no tenderness. Cardiovascular: There is a regular rate and rhythm. No murmur, rub or gallop is appreciated. Respiratory: Lungs are clear to auscultation, respirations are non-labored, breath sounds are equal. No wheezes, stridor, rales, or rhonchi. Gastrointestinal: Soft, non-distended, non-tender abdomen without masses or organomegaly noted. There is no rebound or guarding present. No CVA tenderness. Bowel sounds are unremarkable. Back: There is no tenderness to palpation in the midline. There is no obvious deformity. No rashes noted. Musculoskeletal: Normal ROM, no tenderness, There is no pedal edema. There is no calf tenderness or swelling. Sensation intact. Pulses equal bilaterally 2+. Neurological: CN II-XII intact, There are no obvious motor or sensory deficits. Coordination appears grossly intact. Speech is normal. Skin: Skin is warm and dry and no rashes or lesions are noted. Psychiatric: Cooperative, appropriate mood & affect, normal judgment. Limitations: no limitations Course Vital Signs 10/31/17 12:02 Temperature 98.9 F Pulse Rate 87 Respiratory 20 Rate Blood Pressure 131/85 O2 Sat by Pulse 100 Oximetry Medical Decision Making - Medical Decision Making 52-year-old female presents to the emergency department with a chief complaint of right-sided abdominal pain. At this time x-ray was unrevealing lab work. At this time we discussed we will give her Zofran for home. We discussed Medications discussed follow-up we discussed return parameters all questions. Patient stated she understood and she is given an. This time she will be discharged. - Lab Data Result diagrams: 10/31/17 12:39 10/31/17 12:39 Lab Results 10/31/17 10/31/17 10/31/17 Range/Units 12:39 12:39 12:39 WBC 6.5 (3.8-10.6) k/uL RBC 4.38 (3.80-5.40) m/uL Hgb 14.2 (11.4-16.0) gm/dL Hct 42.3 (34.0-46.0) % MCV 96.4 (80.0-100.0) fL MCH 32.4 (25.0-35.0) pg MCHC 33.6 (31.0-37.0) g/dL RDW 12.8 (11.5-15.5) % Plt Count 526 H (150-450) k/uL Neutrophils % 73 % Lymphocytes % 19 % Monocytes % 5 % Eosinophils % 1 % Basophils % 1 % Neutrophils # 4.7 (1.3-7.7) k/uL Lymphocytes # 1.2 (1.0-4.8) k/uL Monocytes # 0.3 (0-1.0) k/uL Eosinophils # 0.0 (0-0.7) k/uL Basophils # 0.0 (0-0.2) k/uL Sodium 145 (137-145) mmol/L Potassium 4.7 (3.5-5.1) mmol/L Chloride 109 H (98-107) mmol/L Carbon Dioxide 24 (22-30) mmol/L Anion Gap 12 mmol/L BUN 12 (7-17) mg/dL Creatinine 0.80 (0.52-1.04) mg/dL Est GFR (MDRD) Af Amer >60 (>60 ml/min/1.73 sqM) Est GFR (MDRD) Non-Af >60 (>60 ml/min/1.73 sqM) Glucose 95 (74-99) mg/dL Calcium 10.3 H (8.4-10.2) mg/dL Total Bilirubin 0.4 (0.2-1.3) mg/dL AST 23 (14-36) U/L ALT 44 (9-52) U/L Alkaline Phosphatase 97 (38-126) U/L Total Protein 8.3 H (6.3-8.2) g/dL Albumin 4.8 (3.5-5.0) g/dL Amylase 54 (30-110) U/L Lipase 79 (23-300) U/L Urine Color Colorless Urine Appearance Clear (Clear) Urine pH 6.5 (5.0-8.0) Ur Specific [place] 1.003 (1.001-1.035) Urine Protein Negative (Negative) Urine Glucose (UA) Negative (Negative) Urine Ketones Negative (Negative) Urine Blood Negative (Negative) Urine Nitrite Negative (Negative) Urine Bilirubin Negative (Negative) Urine Urobilinogen <2.0 (<2.0) mg/dL Ur Leukocyte Esterase Negative (Negative) - Radiology Data Radiology results: report reviewed, image reviewed Disposition Clinical Impression: Nausea & vomiting Disposition: HOME SELF-CARE Condition: Stable Instructions: Acute Nausea and Vomiting (ED) Additional Instructions: Please use medication as discussed. Please follow up with family doctor if symptoms have not improved over the next two days. Please return to the emergency room if your symptoms increase or worsen or for any other concerns. Prescriptions: Ondansetron Odt [Zofran ODT] 4 mg PO Q8HR PRN #20 tab PRN Reason: Nausea Referrals: Mario Mcdaniels DO [Primary Care Provider] - 1-2 days Time of Disposition: 14:08
[2017-10-31 13:08] LABS: ALT 44 U/L (9-52); AST 23 U/L (14-36); Alkaline Phosphatase 97 U/L (38-126); Amylase 54 U/L (30-110); Anion Gap 12 mmol/L; Blood Urea Nitrogen 12 mg/dL (7-17); Calcium 10.3 mg/dL (8.4-10.2); Carbon Dioxide 24 mmol/L (22-30); Chloride 109 mmol/L (98-107); Glucose 95 mg/dL (74-99); Non-African American GFR(MDRD) >60 (>60 ml/min/1.73 sqM); Sodium 145 mmol/L (137-145); Total Bilirubin 0.4 mg/dL (0.2-1.3); Total Protein 8.3 g/dL (6.3-8.2)
[2017-10-31 13:18] LABS: Potassium 4.7 mmol/L (3.5-5.1)
--- NOTE | 2017-10-31 13:55 | XR ---
2 view abdomen HISTORY: Pain and vomiting 2 views of the abdomen correlated to prior abdomen 09/14/2017 There are air-fluid levels without bowel distention. Present in the right upper quadrant. Lung bases are clear. No pneumoperitoneum. IMPRESSION: Findings may represent enteritis or ileus, follow-up as indicated if bowel obstruction is suspected clinically.
[2017-10-31 14:23] VITALS: BP 131/72; PULSE 69; RESP 18; TEMP 97.8
== END 2017-10-31 14:30 | disposition home or self-care (01) ==
LOC: EC 12:01
DX: R11.2 Nausea with vomiting, unspecified (principal); R10.9 Unspecified abdominal pain; F41.9 Anxiety disorder, unspecified; F32.9 Major depressive disorder, single episode, unspecified; F17.200 Nicotine dependence, unspecified, uncomplicated; Z90.49 Acquired absence of other specified parts of digestive tract; Z79.899 Other long term (current) drug therapy; Z91.018 Allergy to other foods; Z88.6 Allergy status to analgesic agent
CPT/HCPCS: 36415; 80053; 82150; 83690; 85025; 81003; 74020; 99284; 96374; 96375; 96361; 96372; J0500; J2405

== ENCOUNTER 2018-01-12 18:22 | Emergency (ER) | payer OTHER ==
[2018-01-12 18:34] VITALS: BP 124/76; PULSE 108; RESP 18; TEMP 98.4
[2018-01-12] MEDS ORDERED: ORPHENADRINE 30 MG/ML 2 ML VIAL IM STA (18:43)
--- NOTE | 2018-01-12 18:48 | ED ---
General Adult HPI - General Chief complaint: Back Pain/Injury Stated complaint: Fall, back pain Time Seen by Provider: 01/12/18 18:41 Source: patient, RN notes reviewed Mode of arrival: ambulatory Limitations: no limitations - History of Present Illness Initial comments: 52-year-old female presents to the emergency department with a chief complaint of fall with back pain. She slipped and fell on her deck landing onto her back on Monday. She states she continues to have pain is like a tightness around her back. She denies a loss by bladder function. She denies any head injury. She states that she is otherwise been feeling well. She denies any saddle anesthesia. She was concerned due to the continued pain so she thought that she should be seen.Patient denies any recent fever, chills, shortness of breath , chest pain, abdominal pain, nausea vomiting, numbness or tingling, dysuria or hematuria, constipation or diarrhea, headaches or visual changes, or any other current symptoms. - Related Data Home Medications Medication Instructions Recorded Confirmed DULoxetine HCL [Cymbalta] 120 mg PO DAILY 05/19/17 10/31/17 clonazePAM [KlonoPIN] 1 mg PO DAILY PRN 08/15/17 10/31/17 traZODone HCL 50 mg PO HS PRN 08/17/17 10/31/17 Previous Rx's Medication Instructions Recorded Ondansetron Odt [Zofran ODT] 4 mg PO Q8HR PRN #20 tab 10/31/17 Orphenadrine [Norflex] 100 mg PO Q12H #10 tablet.er 01/12/18 Allergies Allergy/AdvReac Type Severity Reaction Status Date / Time ibuprofen [From Motrin] Allergy Rash/Hives Verified 01/12/18 18:30 strawberry Allergy Rash/Hives Verified 01/12/18 18:30 Review of Systems ROS Statement: Those systems with pertinent positive or pertinent negative responses have been documented in the HPI. ROS Other: All systems not noted in ROS Statement are negative. Past Medical History Past Medical History: GI Bleed Additional Past Medical History / Comment(s): DIVERTICULITIS.HERNIA, herniated discs,sciatica, History of Any Multi-Drug Resistant Organisms: None Reported Past Surgical History: Cholecystectomy, Hysterectomy Additional Past Surgical History / Comment(s): right ankle fracture Past Anesthesia/Blood Transfusion Reactions: No Reported Reaction Past Psychological History: Anxiety, Bipolar, Depression, Panic Disorder Smoking Status: Current every day smoker Past Alcohol Use History: None Reported Past Drug Use History: None Reported - Past Family History Mother Family Medical History: Deep Vein Thrombosis (DVT) Father Family Medical History: Cancer, Hypertension Additional Family Medical History / Comment(s): dad has bladder ca General Exam Limitations: no limitations General appearance: alert, in no apparent distress ENT exam: Present: normal exam, mucous membranes moist Neck exam: Present: normal inspection. Absent: tenderness, meningismus, lymphadenopathy Respiratory exam: Present: normal lung sounds bilaterally. Absent: respiratory distress, wheezes, rales, rhonchi, stridor Cardiovascular Exam: Present: regular rate, normal rhythm, normal heart sounds. Absent: systolic murmur, diastolic murmur, rubs, gallop, clicks Extremities exam: Present: normal inspection, full ROM, normal capillary refill. Absent: tenderness, pedal edema, joint swelling, calf tenderness Back exam: Present: normal inspection, full ROM, muscle spasm (bilateral lumbar) . Absent: tenderness, paraspinal tenderness, vertebral tenderness, rash noted Neurological exam: Present: alert, oriented X3 Psychiatric exam: Present: normal affect, normal mood Skin exam: Present: warm, dry, intact, normal color. Absent: rash Course Vital Signs 01/12/18 18:31 Temperature 98.4 F Pulse Rate 108 H Respiratory 18 Rate Blood Pressure 124/76 O2 Sat by Pulse 97 Oximetry Medical Decision Making - Medical Decision Making 52-year-old female presents for fall with back pain. This time patient appears to have a lumbar strain. We will give her muscle relaxers for home. We did discuss follow-up return parameters all questions. Patient stated she understood and is in agreement with this plan. Patient will be discharged. - Radiology Data Radiology results: report reviewed, image reviewed Disposition Clinical Impression: Lumbar strain Disposition: HOME SELF-CARE Condition: Stable Instructions: Low Back Strain (ED), Lower Back Exercises (ED) Additional Instructions: Please use medication as discussed. Please follow up with family doctor if symptoms have not improved over the next two days. Please return to the emergency room if your symptoms increase or worsen or for any other concerns. Prescriptions: Orphenadrine [Norflex] 100 mg PO Q12H #10 tablet.er Referrals: Christian Farrar MD [REFERRING] - 1-2 days Time of Disposition: 19:19
--- NOTE | 2018-01-12 19:09 | XR ---
EXAMINATION TYPE: XR lumbar spine 2 or 3V DATE OF EXAM: 01/12/2018 COMPARISON: NONE HISTORY: Pain TECHNIQUE: 3 views FINDINGS: The lumbar vertebra have normal alignment. There is no significant disc space narrowing. Po sterior elements are intact. There is no compression fracture. Sacroiliac joints appear normal. IMPRESSION: Negative lumbar spine exam . no fracture seen.
== END 2018-01-12 19:25 | disposition home or self-care (01) ==
LOC: EC 18:22
DX: S39.012A Strain of muscle, fascia and tendon of lower back, initial encounter (principal); F32.9 Major depressive disorder, single episode, unspecified; F17.200 Nicotine dependence, unspecified, uncomplicated; Z79.899 Other long term (current) drug therapy; Z88.6 Allergy status to analgesic agent; Z91.018 Allergy to other foods; W01.0XXA Fall on same level from slipping, tripping and stumbling without subsequent striking against object, initial encounter; Y93.H1 Activity, digging, shoveling and raking
CPT/HCPCS: 72100; 99283; 96372; J2360

== ENCOUNTER 2018-09-22 13:04 | Emergency (ER) | payer OTHER ==
[2018-09-22 13:13] VITALS: RESP 18; TEMP 98.2
[2018-09-22] MEDS ORDERED: MORPHINE SULFATE 4 MG/ML SYRINGE IV STA (13:25)
[2018-09-22] MEDS ORDERED: MORPHINE SULFATE 4 MG/ML SYRINGE IM STA (13:36)
--- NOTE | 2018-09-22 13:38 | XR ---
EXAMINATION TYPE: XR shoulder complete RT , 3 VIEWS DATE OF EXAM ORDERED: 09/22/2018 HISTORY: Pain. COMPARISON: None. FINDINGS: No fracture or dislocation is seen. There are mild hypertrophic changes present in the rig ht AC joint. IMPRESSION: 1. NO ACUTE OSSEOUS LESION. 2. MILD DEGENERATIVE CHANGE.
--- NOTE | 2018-09-22 14:12 | ED ---
General Adult HPI - General Chief complaint: Extremity Injury, Upper Stated complaint: rt shoulder pain Source: patient, RN notes reviewed, old records reviewed Mode of arrival: ambulatory Limitations: no limitations - History of Present Illness Initial comments: 53-year-old female patient presents to ED with right shoulder pain. Patient states that approximately 2 days ago she was lifting a heavy box filled with cans of soup over her head when she felt a pop in her right shoulder and immediate pain. Patient has had pain since incident, has decreased overhead movement secondary to pain. Patient has not taken anything for the symptoms. Patient has been icing shoulder. Patient denies any weakness, paresthesias in upper extremities bilaterally. Patient denies any noted ecchymoses, swelling, bruising and after upper extremity. Patient denies history of right shoulder surgery. Patient denies other complaints including, chest pain, shortness of breath, nausea vomiting diarrhea. Patient in exam room with boyfriend, will not be driving home. Systemic: Pt denies fatigue, myalgia, fever/chills, rash. Pt denies weakness, night sweats, weight loss. Neuro: Pt denies headache, visual disturbances, syncope or pre-syncope. HEENT: Pt denies ocular discharge or irritation, otalgia, rhinorrhea, pharyngitis or notable lymphadenopathy. Cardiopulmonary: Pt denies chest pain, SOB, heart palpitations, dyspnea on exertion. Abdominal/GI: Pt denies abdominal pain, n/v/d. : Pt denies dysuria, burning w/ urination, frequency/urgency. Denies new onset urinary or bowel incontinence. MSK: Pt denies myalgia, loss of strength in extremities. - Related Data Previous Rx's Medication Instructions Recorded Acetaminophen Tab [Tylenol Tab] 650 mg PO Q6H #20 tablet 07/17/18 Ciprofloxacin HCl [Cipro] 500 mg PO Q12HR #14 tablet 07/17/18 Cyclobenzaprine [Flexeril] 1 tab PO TID #10 tablet 09/22/18 Allergies Allergy/AdvReac Type Severity Reaction Status Date / Time ibuprofen [From Motrin] Allergy Rash/Hives Verified 09/22/18 13:13 strawberry Allergy Rash/Hives Verified 09/22/18 13:13 Review of Systems ROS Statement: Those systems with pertinent positive or pertinent negative responses have been documented in the HPI. ROS Other: All systems not noted in ROS Statement are negative. Past Medical History Past Medical History: GI Bleed Additional Past Medical History / Comment(s): DIVERTICULITIS.HERNIA, herniated discs,sciatica, History of Any Multi-Drug Resistant Organisms: None Reported Past Surgical History: Cholecystectomy, Hysterectomy Additional Past Surgical History / Comment(s): right ankle fracture Past Anesthesia/Blood Transfusion Reactions: No Reported Reaction Past Psychological History: Anxiety, Bipolar, Depression, Panic Disorder Smoking Status: Current every day smoker Past Alcohol Use History: None Reported Past Drug Use History: None Reported - Past Family History Mother Family Medical History: Deep Vein Thrombosis (DVT) Father Family Medical History: Cancer, Hypertension Additional Family Medical History / Comment(s): dad has bladder ca General Exam - General Exam Comments Initial Comments: Constitutional: NAD, AOX3, Pt has pleasant affect. HEENT: NC/AT, trachea midline, neck supple, no lymphadenopathy. Posterior pharynx non erythematous, without exudates. External ears appear normal, without discharge. Mucous membranes moist. Eyes PERRLA, EOM intact. There is no scleral icterus. No pallor noted. Cardiopulmonary: RRR, no murmurs, rubs or gallops, no JVD noted. Lungs CTAB in anterior and posterior carmona. No peripheral edema. Abdominal exam: Abdomen soft and non-distended. Abdomen non-tender to palpation in all 4 quadrants. Bowel sounds active in LLQ. No hepatosplenomegaly. Neuro: CN II-XII grossly intact. MSK: Painful arc positive right-sided. Empty can test positive right-sided. SC and AC joint nontender to palpation. Anterior glenohumeral joint tender to palpation. No erythema, streaking, discharge, ecchymoses at joint. Biceps and triceps strength 5/5. [employer] strength 5/5. Elevated range of motion right shoulder limited pain, but intact. Patient right upper extremity neurovascularly intact. Radial pulse +2, sensation C3,4,5. Left upper extremities and bilateral lower extremities examined without abnormal finding. Limitations: no limitations Course Vital Signs 09/22/18 09/22/18 13:11 14:14 Temperature 98.2 F Pulse Rate 105 H 93 Respiratory 18 18 Rate Blood Pressure 122/82 103/74 O2 Sat by Pulse 100 100 Oximetry Medical Decision Making - Medical Decision Making 53-year-old female patient presents in ED after mechanical right shoulder injury lifting heavy box. Patient has no paresthesias weakness. Physical exam displayed tenderness in anterior glenohumeral joint, positive empty can test, positive painful arc limited overhead movement secondary to pain. Patient pain well-controlled in ED. Plain films of right shoulder were ordered, did not display any acute fracture. Patient was placed in sling. Discussed the patient is likely that she suffered a sprain to her ligament, or muscle and this is not particularly well visualized by a plain film. Discussed with patient that her exam and history was not worrisome for neurovascular injury. Pt rx muscle relaxers, RICE therapy. Patient to follow up with orthopedic surgeon in 1-2 days. Patient follow-up with PCP in 1-2 days. Return parameters were discussed including loss of sensation, weakness, increased pain , any other any complaints initially. Patient also to return if any other new complaints arise including chest pain, shortness of breath, abdominal pain. Case discussed with Dr. Ashley. Disposition Clinical Impression: Sprain of shoulder, right Disposition: HOME SELF-CARE Condition: Good Instructions: Shoulder Sprain (ED) Additional Instructions: Patient to adhere to previously discussed treatment plan and will take medication(s) as directed. Patient to follow up with PCP in 1-2 days. Patient to return to ED if symptoms do not improve. Prescriptions: Cyclobenzaprine [Flexeril] 1 tab PO TID #10 tablet Is patient prescribed a controlled substance at d/c from ED?: No Referrals: None,Stated [Primary Care Provider] - 1-2 days Sy Triado DO [Doctor of Osteopathic Medicine] - 1-2 days Time of Disposition: 14:11
[2018-09-22 14:15] VITALS: BP 103/74; PULSE 93
== END 2018-09-22 14:21 | disposition home or self-care (01) ==
LOC: EC 13:04
DX: S43.401A Unspecified sprain of right shoulder joint, initial encounter (principal); F17.200 Nicotine dependence, unspecified, uncomplicated; Z88.6 Allergy status to analgesic agent; Z91.018 Allergy to other foods; X50.0XXA Overexertion from strenuous movement or load, initial encounter
CPT/HCPCS: 73030; 99284; 96372; J2270

== ENCOUNTER 2018-09-25 14:41 | Emergency (ER) | payer OTHER ==
[2018-09-25] MEDS ORDERED: ONDANSETRON ODT 4 MG TAB PO STA (15:06)
--- NOTE | 2018-09-25 15:08 | ED ---
General Adult HPI - General Chief complaint: Head Injury Stated complaint: Fall, Head injury Time Seen by Provider: 09/25/18 14:57 Source: patient, RN notes reviewed Mode of arrival: ambulatory Limitations: no limitations - History of Present Illness Initial comments: Patient 53-year-old female presents emergency room today with chief complaint of a head injury that occurred approximately one hour ago. She does admit that she was outside throwing trash way when she went to turn around slipped on wet cement falling down hitting the back of her head. She states she did lose consciousness. She states she believes it was just for a second or 2. She states she came to she was able to get up and walk back into the house. She states she's had a headache. Does admit to blurred vision at times. Admits to a few episodes of nausea vomiting. Patient denies any other complaints or symptoms. - Related Data Previous Rx's Medication Instructions Recorded Ondansetron Odt [Zofran ODT] 4 mg PO Q8HR PRN #10 tab 09/25/18 Allergies Allergy/AdvReac Type Severity Reaction Status Date / Time ibuprofen [From Motrin] Allergy Rash/Hives Verified 09/25/18 15:34 strawberry Allergy Rash/Hives Verified 09/25/18 15:34 Review of Systems ROS Statement: Those systems with pertinent positive or pertinent negative responses have been documented in the HPI. ROS Other: All systems not noted in ROS Statement are negative. Past Medical History Past Medical History: GI Bleed Additional Past Medical History / Comment(s): DIVERTICULITIS.HERNIA, herniated discs,sciatica, History of Any Multi-Drug Resistant Organisms: None Reported Past Surgical History: Cholecystectomy, Hysterectomy Additional Past Surgical History / Comment(s): right ankle fracture Past Anesthesia/Blood Transfusion Reactions: No Reported Reaction Past Psychological History: Anxiety, Bipolar, Depression, Panic Disorder Smoking Status: Current every day smoker Past Alcohol Use History: None Reported Past Drug Use History: None Reported - Past Family History Mother Family Medical History: Deep Vein Thrombosis (DVT) Father Family Medical History: Cancer, Hypertension Additional Family Medical History / Comment(s): dad has bladder ca General Exam - General Exam Comments Initial Comments: General: The patient is awake and alert, in no distress, and does not appear acutely ill. Eye: Pupils are equal, round and reactive to light. Extra-ocular movements are intact. No nystagmus. There is normal conjunctiva bilaterally. No signs of icterus. Ears, nose, mouth and throat: There are moist mucous membranes and no oral lesions. Neck: The neck is supple, there is no tenderness or JVD. Cardiovascular: There is a regular rate and rhythm. No murmur, rub or gallop is appreciated. Respiratory: Lungs are clear to auscultation, respirations are non-labored, breath sounds are equal. No wheezes, stridor, rales, or rhonchi. Musculoskeletal: Normal ROM. Patient does have tenderness cervical spine and CT C3. No step-off or deformity. Sensation intact. Strength 5/5. Pulses equal bilaterally 2+. Neurological: A&O x 3. CN II-XII intact, There are no obvious motor or sensory deficits. Coordination appears grossly intact. Speech is normal. Skin: Skin is warm and dry and no rashes or lesions are noted. Psychiatric: Cooperative, appropriate mood & affect, normal judgment. Limitations: no limitations Course Vital Signs 09/25/18 09/25/18 14:52 16:10 Temperature 98.2 F 97.6 F Pulse Rate 104 H 97 Respiratory 18 15 Rate Blood Pressure 110/73 129/81 O2 Sat by Pulse 100 97 Oximetry Medical Decision Making - Medical Decision Making CT reviewed and is negative for any acute abnormality. Patient reexamined showing signs of distress. Signs and symptoms of concussion were discussed in detail. Patient is advised follow-up family doctor over the next 2 days. Advised return here to emergency room if any symptoms increase or worsen. Disposition Clinical Impression: Concussion Disposition: HOME SELF-CARE Condition: Good Instructions: Concussion (ED) Additional Instructions: Please use medication as discussed. Please follow-up with family doctor in the next 2 days of symptoms have not improved. Please return to emergency room if the symptoms increase or worsen or for any other concerns. Prescriptions: Ondansetron Odt [Zofran ODT] 4 mg PO Q8HR PRN #10 tab PRN Reason: Nausea Is patient prescribed a controlled substance at d/c from ED?: No Referrals: None,Stated [Primary Care Provider] - 1-2 days Ruth Trevizo MD [STAFF PHYSICIAN] - 1-2 days Time of Disposition: 16:16
--- NOTE | 2018-09-25 15:41 | CT ---
EXAMINATION TYPE: CT brain cspine wo con DATE OF EXAM: 09/25/2018 COMPARISON: CT brain and cervical spine June 25, 2017 HISTORY: Fall injury with headache and neck pain. CT DLP: 1318.1 mGycm. Automated Exposure Control for Dose Reduction was Utilized. TECHNIQUE: CT scan of the head and cervical spine are performed without contrast. FINDINGS: There is no acute intracranial hemorrhage, mass effect, or midline shift identified. The ventricles and sulci are within normal limits in size. The globes are intact and the visualized sin uses are clear. Calvarium is intact. Cervical spine is visualized in its entirety from C1 through upper thoracic levels without evidence o f acute fracture or dislocation. Prevertebral soft tissue appears within normal limits. The C1-C2 a rticulation is within normal limits on the coronal images. Vertebral body heights and disc space heig hts are maintained. There is levoconvex scoliotic curvature centered in the lower cervical spine rede monstrated. Posterior spur disc complexes effacing anterior thecal sac at C5-C6 level on sagittal and axial images. Thyroid gland is within normal limits. Lung apices are clear. IMPRESSION: 1. There is no acute fracture or dislocation evident in the cervical spine. 2. No acute intracranial hemorrhage, mass effect, or midline shift is seen. No significant change from prior CT.
[2018-09-25 16:12] VITALS: BP 129/81; PULSE 97; RESP 15; TEMP 97.6
[2018-09-25] MEDS ORDERED: traMADol 50 MG STARTER PACK 3 TAB BTL PO STA (16:15)
== END 2018-09-25 16:28 | disposition home or self-care (01) ==
LOC: EC 14:41
DX: S06.0X1A Concussion with loss of consciousness of 30 minutes or less, initial encounter (principal); F17.200 Nicotine dependence, unspecified, uncomplicated; Z90.49 Acquired absence of other specified parts of digestive tract; Z90.710 Acquired absence of both cervix and uterus; Z98.890 Other specified postprocedural states; Z88.6 Allergy status to analgesic agent; Z91.018 Allergy to other foods; W01.10XA Fall on same level from slipping, tripping and stumbling with subsequent striking against unspecified object, initial encounter; Y93.89 Activity, other specified
CPT/HCPCS: 72125; 70450; L0120; 99283

== ENCOUNTER → 2019-01-03 | Outpatient (CLI) | payer OTHER ==
--- NOTE | 2019-01-03 10:46 | MR ---
EXAMINATION TYPE: MR shoulder RT wo con DATE OF EXAM: 01/03/2019 COMPARISON: 09/26/2018 HISTORY: Right shoulder pain TECHNIQUE: Multiplanar, multisequence imaging of the right shoulder is performed without contrast. FINDINGS: Rotator Cuff: There is thickening and increased signal involving the anterior fibers of the supraspin atus tendon measuring approximately 5 mm compatible with tendinosis. Partial intrasubstance tear susp ected. No definite through thickness tear or retraction. Small amount of fluid in the subacromial bur sa. Acromioclavicular Joint: There is hypertrophic arthropathy of the AC joint which is result in mass ef fect and impingement supraspinatus tendon and muscle. Glenohumeral Joint: Joint spaces preserved. Glenohumeral are intact. No sizable joint effusion. Labrum: The labrum appears grossly intact given limitation of non-arthrogram study. Biceps Tendon: The long head of biceps is in normal location within bicipital groove. Bone marrow signal: There is a small less than 1 severe rounded cystic lesion involving the proximal diaphysis of the right humerus which may represent a bone cyst. Bone scan suggested. IMPRESSION: 1. There is tendinopathy of the distal supraspinatus tendon proximal to the insertion with increased intrasubstance signal involving 5 mm in the anterior fibers of the supraspinatus tendon suggestive of partial intrasubstance tear. No retraction. 2. 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
== END | disposition home or self-care (01) ==
LOC: RADMRIMAIN 09:04
PROVIDERS: ATTEND Orthopaedic Surgery
DX: M19.011 Primary osteoarthritis, right shoulder (principal); M67.813 Other specified disorders of tendon, right shoulder; R93.7 Abnormal findings on diagnostic imaging of other parts of musculoskeletal system